=== PATIENT | male | born 1980 | race Caucasian/White ===

== ENCOUNTER 2017-06-08 12:10 | Inpatient (IN) ==
[2017-06-08] MEDS ORDERED: D5% in 0.45% NACL 1,000 ML IVC ONE (17:11)
[2017-06-08] MEDS: D5% in 0.9% NACL 1,000 ML IVC SCH (18:52)
[2017-06-08] MEDS ORDERED: Naloxone 0.4 MG/ML INJ IVP PRN (20:09)
[2017-06-08] MEDS ORDERED: Acetaminophen 325 MG TABLET PO PRN (20:09)
[2017-06-08] MEDS ORDERED: Methocarbamol 750 MG TABLET PO PRN (20:15)
[2017-06-08] MEDS ORDERED: SUBCUTANEOUS INSULIN PUMP MC PRN (20:15)
[2017-06-08] MEDS ORDERED: Ipratropium/Albuterol Neb 3 ML IH PRN (20:22)
--- NOTE | 2017-06-08 20:46 | Internal Med History&Physical ---
<Jose Wynne - Last Filed: 06/08/17 21:54> Date of Encounter: 06/08/17 Time of Encounter: 17:30 Assessment and Plan (1) Abdominal pain Current visit: Yes Status: Acute Patient presents with RUQ pain that he states has been occurring for the past two weeks and has become progressively worse over the past three days. Patient reports extreme pain with positional changes, coughing, sneezing, bending over, or laying flat. Patient also states that the pain has begun to radiate to the right flank area. XR of the abdomen/pelvis at [place] today shows no evidence of bowel obstruction but does show constipation. Patient's current symptoms are highly suggestive of cholecystitis and CT of the abdomen and pelvis with contrast ordered stat. Will consider placing a surgical consult based on the CT results. Patient to be placed as NPO with only medications due to N/V and possible surgery. Stair-step pain medications ordered to provide pain management. Qualifiers: Abdominal location: right upper quadrant Qualified Code(s): R10.11 - Right upper quadrant pain (2) Nausea & vomiting Current visit: Yes Status: Acute Patient presents with nausea and vomiting related to RUQ and abdominal pain over the past three days. Patient reports he becomes nauseous post-eating and vomits. Patient to be NPO with medications only due to N/V and possible surgical intervention for suspected cholecystitis. IV Zofran ordered PRN. IVP Protonix 40 mg daily ordered. Will monitor I&O and daily weight. Qualifiers: Vomiting type: cyclical vomiting Vomiting Intractability: non-intractable Qualified Code(s): G43.A0 - Cyclical vomiting, not intractable (3) Sleep apnea Current visit: Yes Status: Acute Patient reports acute sleep apnea that was recently diagnosed through a sleep study. Will order CPAP HS for patient as he reports home use nightly. Qualifiers: Sleep apnea type: obstructive Qualified Code(s): G47.33 - Obstructive sleep apnea (adult) (pediatric) (4) Unspecified open wound, right ankle, initial encounter Current visit: Yes Status: Acute Patient presents with wound of the right ankle that he is currently followed by Dr. Alexis duong. Patient is diabetic with insulin dependency via indwelling pump and also suffers from diabetic neuropathy. Wound is currently producing small amount of thick discharge. Wound care consult ordered. Qualifiers: Encounter type: initial encounter Qualified Code(s): S91.001A - Unspecified open wound, right ankle, initial encounter (5) Diabetes Current visit: Yes Status: Chronic Patient presents with history of chronic diabetes. Upon admission, patient's blood glucose was low due to nothing by mouth status. IV fluids with D5 administered to help normalize patient's blood glucose level while nothing by mouth. Blood glucose monitoring before meals and at bedtime ordered and patient will continue insulin via indwelling pump. A1c ordered. Qualifiers: Diabetes mellitus type: type 2 Diabetes mellitus complication status: with skin complications Diabetes mellitus complication detail: with foot ulcer Diabetes mellitus assisted insulin use: with assisted use Qualified Code(s) : E11.621 - Type 2 diabetes mellitus with foot ulcer; L97.509 - Non-pressure chronic ulcer of other part of unspecified foot with unspecified severity; Z79.4 - assisted (current) use of insulin (6) HTN (hypertension) Current visit: Yes Status: Chronic Patient presents with history of chronic hypertension. Will monitor patient vital signs and continue patient's lisinopril and Lopressor. Qualifiers: Hypertension type: essential hypertension Qualified Code(s): I10 - Essential (primary) hypertension (7) HLD (hyperlipidemia) Current visit: Yes Status: Chronic Patient presents with history of chronic hyperlipidemia. Lipid panel ordered. Will continue patient's atorvastatin. Qualifiers: Hyperlipidemia type: pure hypercholesterolemia Qualified Code(s): E78.00 - Pure hypercholesterolemia, unspecified; E78.0 - Pure hypercholesterolemia (8) DVT prophylaxis Current visit: Yes Status: Acute Patient to be placed on DVT prophylaxis due to admission protocol and current bed rest status. SCDs ordered for bilateral LEs due to possible need for surgery. Internal Medicine - H&P: HPI Chief complaint: RUQ/Abdominal pain Admitted From: Hospital to Hospital Transfer Plans for Post Hospital Care: Home History of present illness: Mr. Kilpatrick is a 36 year old male who presents from [facility] with chief complaint of abdominal pain for the past two weeks that the patient states has become more centralized in his RUQ and also radiates to his flank now. He reports that the pain becomes worse with positional changes, coughing, sneezing , bending over, or lying flat. He reports that he is coughing more and the sputum is brown/black. He reports he currently smokes 1-2 cigarettes a day. He reports nausea and vomiting, chills, and fever. He states the pain can become so intense that it takes his breath away. He denies recent illness, chest pain, dyspnea, lightheadedness or dizziness, headache, vision changes, pre-syncope, or syncope. Mr. Kilpatrick has a medical history that includes arthritis, asthma, diabetes with insulin dependency on an indwelling pump, HLD, HTN, and sleep apnea. He denies use of home O2 currently. 2-View CXR today at [place] shows no acute process. XR of the supine and upright abdomen today show no evidence of bowel obstruction but constipation. Patient's lipase is currently 96 on admission. Mr. Kilpatrick is at moderate risk for cholecystitis based on his current symptoms and will be placed as observation status with orders for stat CT of the abdomen/pelvis with contrast, NPO diet except for medications, blood glucose monitoring, IV fluids with D5 to help with patient's hypoglycemia that was present on admission due to his N/V, and supplemental O2 with continuous SpO2 monitoring. IV Zofran PRN and IVP Protonix 40 mg daily ordered. Will consider surgical consult based on CT results. Patient to be monitored closely for pain with stair-step medications ordered PRN for pain management. Time spent with patient > 40 minutes. Past Med Surg Social Fam HX - Past Medical History Source: patient Medical history: arthritis, asthma, diabetes, hyperlipidemia, hypertension Psychiatric history: anxiety, depression - Past Surgical History Surgical History: appendectomy, herniorrhaphy, orthopedic, other (Right carpal tunnel), other (Right foot) - Social History Smoking Status: Current every day smoker Packs per day: 1-2 cigarettes per day Smokeless Tobacco Status: Yes (1 can per day) Alcohol use: occasionally Drug use: none Occupational status: employed Current living situation: Home Activity Level: Independent ambulation Recent Out of Country Travel Within the Last 8 Weeks: No Exposure or Possible Exposure to Illness During Travel: No Internal Medicine - H&P: Meds Lisinopril [Zestril] 40 mg PO DAILY 08/04/16 [History] Metoprolol XL (24 HR) Succ [Toprol XL] 100 mg PO DAILY 11/25/16 [History] Albuterol Sulfate [Proair Hfa] 2 puff IH Q4H PRN 01/28/17 [History] Montelukast [Singulair] 10 mg PO DAILY 01/28/17 [History] Fluticasone/Vilanterol [Breo Ellipta 100-25 Mcg INH] 1 puff IH DAILY 04/28/17 [ History] Ibuprofen [Motrin] 800 mg PO Q8HR PRN 04/28/17 [History] Subcutaneous Insulin Pump [T:Slim] 3 units MC Q1H PRN 04/28/17 [History] Atorvastatin [Lipitor] 20 mg PO HS 05/28/17 [History] Furosemide [Lasix] 20 mg PO BID #14 tablet 05/28/17 [Rx] Methocarbamol [Robaxin-750] 750 mg PO Q8H PRN 06/08/17 [History] Potassium Citrate [Urocit-K] 10 meq PO DAILY 06/08/17 [History] Pregabalin [Lyrica] 200 mg PO BID 06/08/17 [History] Allergies Penicillins [PCN] Allergy (Verified 06/08/17 19:16) raises blood sugar patient states advised as child not to take due to diabetes All Systems PM: A 10-system review of systems was performed and is negative for pertinent findings except as documented above in the HPI. - Constitutional Constitutional: as per HPI, chills, fever(s), no night sweats - EENT Eyes: no change in vision, no discharge, no pain, no photophobia Ears: no ear discharge, no ear pain, no tinnitus Nose, mouth and throat: no dysphagia, no nasal discharge, no neck pain, no sore throat - Breasts Breasts: as per HPI - Cardiovascular Cardiovascular ROS IM: no chest pain, no diaphoresis, no dyspnea, no lightheadedness, no palpitations, no syncope - Respiratory Respiratory: as per HPI, cough, dyspnea - Gastrointestinal Gastrointestinal: as per HPI, abdominal pain, nausea, vomiting - Genitourinary Genitourinary ROS male: as per HPI - Musculoskeletal Musculoskeletal ROS IM: no numbness, no tingling - Integumentary Integumentary IM: no rash, no unusual bruising - Neurological Neurological ROS: no confusion, no convulsions, no focal weakness, no numbness, no tingling, no tremor(s) - Psychiatric Psychiatric: as per HPI - Endocrine Endocrine IM: as per HPI - Hematologic/Lymphatic Hematologic/Lymphatic: no easy bruising - Allergic/Immunologic Allergic/Immunologic: as per HPI - Constitutional Vitals: Temp Pulse Resp BP Pulse Ox 98.7 F 74 18 138/90 96 06/08/17 19:53 06/08/17 19:53 06/08/17 19:53 06/08/17 19:53 06/08/17 19:53 General appearance: Present: cooperative, mild distress, A&O X 3, pleasant, obese, answers questions appropriately - Head Head exam: Present: atraumatic, normocephalic - Eye Eye exam: Present: PERRL, conjuntiva pink, sclera anicteric Pupils: Present: PERRL - ENT ENT exam: Present: normal exam, normal external ear exam - Neck Neck exam general surgery: Present: supple, trachea midline. Absent: lymphadenopathy - Respiratory Respiratory exam: Present: CTAB. Absent: accessory muscle use, rales, rhonchi, wheezes - Cardiovascular Cardiovascular exam: Present: RRR, +S1, +S2. Absent: diastolic murmur, gallop, rubs, systolic murmur - GI/Abdominal GI/Abdominal exam: Present: diminished bowel sounds, distended, soft, tenderness - Rectal Rectal exam: Present: deferred - Additional comments: exam deferred. - Extremities Exam Extremities exam: Present: warm, radial pulses palpable and symetrical. Absent : calf tenderness, cyanotic, pedal edema - Back Exam Back exam: Present: normal inspection - Neurological Exam Neurological exam: Present: CN II-XII intact, oriented X3, no focal deficits. Absent: pronater drift, facial droop, speech deficit - Psychiatric Psychiatric exam: Present: normal affect, normal mood - Skin Skin exam: Present: dry, intact Internal Med - H&P Results - EKG Data EKG shows normal: sinus rhythm - EKG Data Prior EKG available for review: yes When compared to previous EKG: there is no significant change EKG comments: 06/08/17 21:03 EKG dated 04/27/17 shows sinus rhythm. EKG dated 06/08/17 shows sinus rhythm with poor R-wave progression. - Diagnostic Studies Chest x-ray Additional comments: 2-View CXR dated today in [place] shows no acute process. Abdominal x-ray Additional comments: Abdominal XR dated today in [place] shows no evidence of bowel obstruction, but constipation. <Jo Winslow - Last Filed: 06/09/17 00:13> Date of Encounter: 06/09/17 Internal Medicine - H&P: HPI History of present illness: Mr. Kilpatrick is a 36 year old male All Systems PM: A 10-system review of systems was performed and is negative for pertinent findings except as documented above in the HPI. - Constitutional Vitals: Temp Pulse Resp BP Pulse Ox 98.0 F 73 20 142/88 96 06/08/17 22:47 06/08/17 22:47 06/08/17 22:47 06/08/17 22:47 06/08/17 22:47 Internal Med - H&P Results - Labs Labs: Cardiac Enzymes 06/08/17 Range/Units 20:43 Troponin I 0.00 (0-0.03) ng/mL - Attending Attestation Patient seen and evaluated, agree with assessment and plan of Jose Wynne NP. Patient with RUQ pain and mild lipase elevation. Imaging unable to be performed at outside hospital, pending here. Symptoms most concerning for gallbladder disease, as pain worsens with eating. Will treat for pancreatitis with IV fluids and wait for results of CT abdomen/pelvis and RUQ US.
[2017-06-08] MEDS: *HR* Morphine 2 MG/ML SYRINGE IVP PRN (21:30)
[2017-06-08] MEDS: Pantoprazole 40 MG VIAL IVP SCH (21:33)
[2017-06-08] MEDS: Furosemide 20 MG TABLET PO SCH (21:36)
[2017-06-08] MEDS: Pregabalin 50 MG CAPSULE PO SCH (21:36)
[2017-06-09] MEDS: *HR* HYDROcodone/Acet 5/325 mg TABLET PO PRN ×3 (00:07→18:43)
[2017-06-09 02:37] LABS: Basophils # 0.1 K/mcL (0.0-0.2); Basophils % 0.9 %; Eosinophils # 0.3 K/mcL (0.0-0.6); Eosinophils % 4.8 %; Hematocrit 44.8 % (37.5-50.1); Hemoglobin 15.2 g/dL (12.9-16.9); Immature Granulocytes % 0.6 % (0-4); Lymphocytes # 1.6 K/mcL (0.6-4.6); Lymphocytes % 23.7 %; Mean Corpuscular HGB Conc 33.9 g/dL (31.6-35.5); Mean Corpuscular Volume 91.2 fL (83.0-100.0); Mean Platelet Volume 9.4 fL (9.4-12.4); Monocytes # 0.8 K/mcL (0.0-1.3); Monocytes % 10.8 %; Neutrophils # 4.1 K/mcL (1.6-8.9); Platelet Count 235 K/mcL (140-400); Red Blood Count 4.91 M/mcL (4.19-5.50); Red Cell Distribution Width 12.5 % (11.5-14.5); Segmented Neutrophils % 59.2 %
[2017-06-09 02:41] LABS: Prothrombin Time 10.8 Seconds (9.4-12.1)
[2017-06-09 02:44] LABS: Activated Partial Thrombo Time 32.1 Seconds (26.0-36.0)
[2017-06-09 02:50] LABS: BUN/Creatinine Ratio 14 (6-26); Blood Urea Nitrogen 18 mg/dL (8-26); Calcium 9.3 mg/dL (8.6-10.8); Carbon Dioxide 31 mEq/L (19-29); Chloride 100 mEq/L (98-109); Chol/HDL Ratio 4.3 (0-4.9); Cholesterol 128 mg/dL (< 200); Glucose 191 mg/dL (70-99); HDL Cholesterol 30 mg/dL (40-59); LDL Cholesterol,Calculated 53 mg/dL (0-99); Osmolality,Calculated 287 (280-300); Sodium 135 mEq/L (136-145); Triglycerides 223 mg/dL (< 150); eGFR For African Americans > 60 (> 60); eGFR For Non-African Americans > 60 (> 60)
[2017-06-09] MEDS: D5% in 0.9% NACL 1,000 ML IVC SCH (02:54)
[2017-06-09] MEDS: *HR* Morphine 2 MG/ML SYRINGE IVP PRN ×2 (02:58→22:07)
[2017-06-09] MEDS: 0.9 % Sodium Chloride 1,000 ML IVC SCH ×2 (03:37→11:58)
[2017-06-09] MEDS ORDERED: *HR* Dextrose 50 % in Water (Syg) 50 ML SYRINGE ONE (07:34)
[2017-06-09] MEDS ORDERED: Dextrose Gel 15 GM PO PRN ×2 (07:47)
[2017-06-09] MEDS ORDERED: D5% in Water 1,000 ML IVC PRN (07:47)
[2017-06-09] MEDS: *HR* Dextrose 50 % in Water (Syg) 50 ML SYRINGE IVP PRN ×3 (07:56→12:30)
[2017-06-09] MEDS: Furosemide 20 MG TABLET PO SCH ×2 (08:55→18:43)
[2017-06-09] MEDS: Pregabalin 50 MG CAPSULE PO SCH ×2 (08:55→22:05)
[2017-06-09] MEDS: Potassium Citrate 10 MEQ TABLET.ER PO SCH (08:56)
[2017-06-09] MEDS: Lisinopril 20 MG TABLET PO SCH (08:56)
[2017-06-09] MEDS: Metoprolol XL (24 HR) Succ 50 MG TAB.ER.24H PO SCH (08:56)
[2017-06-09] MEDS: Pantoprazole 40 MG VIAL IVP SCH (08:56)
--- NOTE | 2017-06-09 13:44 | Internal Med Progress Note ---
Date of Encounter: 06/09/17 Time of Encounter: 12:30 - Assessment and plan (1) RUQ abdominal pain Current Visit: Yes Status: Acute Assessment and plan: Patient with right upper quadrant abdominal pain that started 3 days prior to presentation. Exquisitely tender to palpation. Worsened with movement, deep breaths, coughing. Patient also stating that he developed a cough at the same time as his right upper quadrant abdominal pain. Will obtain chest CT. Abdominal CT unremarkable for acute processes as well as plain films of his abdomen revealing constipation. Chest x-ray negative. Will obtain gallbladder DOWN and repeat LFTs, lipase, amylase, bilirubin levels. Lipase mildly elevated yesterday, will trend. We will keep nothing by mouth, suspicion is for acute cholecystitis but workup is ongoing. Urinalysis negative. Continue with pain control. Gallbladder ultrasound and chest CT as well as abdominal labs pending ITS Impressions Abdomen/Pelvis CT 06/08/17 23:30 IMPRESSION: No acute findings. In particular there is no scan evidence for acute cholecystitis. D/ / Justin Avalos MD / Justin Avalos MD Interpreting Provider: Jsutin Avalos MD Chest x-ray from [place] 06/08/17-1054 impression: No acute process. Supine and upright views of the abdomen from [place] 06/08/17-1055 impression : No evidence of bowel obstruction. Constipation. (2) Foot ulcer Current Visit: Yes Status: Chronic Assessment and plan: Small, round, open area approximately 2 mm wide and approximately 2 mm deep area no active drainage on my assessment. Does not appear acutely infected. Wound is on board. Follows with Dr. munoz outpatient. No signs of cellulitis or acute processes, no indication for inpatient consultation at this time. (3) DVT prophylaxis Current Visit: Yes Status: Acute Assessment and plan: Observation patient. Up ad sejal. (4) Nausea & vomiting Current Visit: Yes Status: Acute Assessment and plan: Symptoms currently controlled, remains nothing by mouth for ongoing workup Qualifiers: Vomiting type: cyclical vomiting Vomiting Intractability: non-intractable Qualified Code(s): G43.A0 - Cyclical vomiting, not intractable (5) Sleep apnea Current Visit: Yes Status: Chronic Assessment and plan: Endorses compliance, continue CPAP at bedtime Qualifiers: Sleep apnea type: obstructive Qualified Code(s): G47.33 - Obstructive sleep apnea (adult) (pediatric) (6) Diabetes Current Visit: Yes Status: Chronic Assessment and plan: Relatively well controlled with an A1c of 8.0%. Patient with insulin pump. Patient did have mild hypoglycemic episode this morning. Nothing by mouth, insulin rates decreased. 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 We will continue to trend and adjust medications as indicated. Qualifiers: Hypertension type: essential hypertension Qualified Code(s): I10 - Essential (primary) hypertension (8) HLD (hyperlipidemia) Current Visit: Yes Status: Chronic Assessment and plan: Lipid panel mildly abnormal triglyceride 223, LDL normal, total cholesterol normal - Subjective Interval history: Patient seen and examined. On examination, patient sitting upright in his chair listening to music. He states that he just got a pain shot and states that his pain is currently tolerable but states he is still having RUQ pain and states even slight movement causes him great distress. He states his last BM was a few days ago. He is flatulent. - Constitutional Vitals: Temp Pulse Resp BP Pulse Ox 97.5 F L 73 15 129/79 94 06/09/17 11:44 06/09/17 11:44 06/09/17 11:44 06/09/17 11:44 06/09/17 11:44 General appearance: Present: cooperative, mild distress (2/2 pain), A&O X 3, pleasant, obese, answers questions appropriately - Head Head exam: Present: atraumatic, normocephalic - Eye Eye exam: Present: PERRL, conjuntiva pink, sclera anicteric Pupils: Present: PERRL - Neck Neck exam general surgery: Present: supple, trachea midline. Absent: lymphadenopathy - Respiratory Respiratory exam: Present: wheezes (right posterior). Absent: accessory muscle use, rales, respiratory distress, rhonchi - Cardiovascular Cardiovascular exam: Present: RRR, +S1, +S2. Absent: diastolic murmur, gallop, rubs, systolic murmur - GI/Abdominal GI/Abdominal exam: Present: distended, normal bowel sounds, soft, tenderness ( RUQ), no peritoneal signs - Extremities Exam Extremities exam: Present: warm, radial pulses palpable and symetrical. Absent : calf tenderness, cyanotic, pedal edema - Neurological Exam Neurological exam: Present: alert, CN II-XII intact, oriented X3, no focal deficits, strengths equal and symetr throughout. Absent: pronater drift, facial droop, speech deficit - Skin Skin exam: Present: dry, intact, pallor, warm Internal Medicine: Result - Labs CBC & Chem 7: 06/09/17 02:26 06/09/17 02:26 Labs: Short CBC 06/09/17 Range/Units 02:26 WBC 6.9 (4.3-11.1) K/mcL Hgb 15.2 D (12.9-16.9) g/dL Hct 44.8 (37.5-50.1) % Plt Count 235 (140-400) K/mcL Neutrophils # 4.1 (1.6-8.9) K/mcL BMP 06/09/17 02:26 Sodium 135 L Potassium 4.0 Chloride 100 Carbon Dioxide 31 H BUN 18 Creatinine 1.31 H Glucose 191 H Calcium 9.3 Cardiac Enzymes 06/08/17 06/09/17 Range/Units 20:43 02:26 Troponin I 0.00 0.00 (0-0.03) ng/mL - ABG Interpretation ABG results: PT/INR, D-dimer PT 10.8 Seconds (9.4-12.1) 06/09/17 02:26 - Impressions Impressions Abdomen/Pelvis CT 06/08/17 23:30 IMPRESSION: No acute findings. In particular there is no scan evidence for acute cholecystitis. D/ / Justin Avalos MD / Justin Avalos MD Interpreting Provider: Justin Avalos MD Consult Discharge Plan - Plan Referrals: Leslie Malhotra, INVESTOR RELATIONS MANAGER [Primary Care Provider] -
[2017-06-09 14:14] LABS: Albumin 3.1 g/dL (3.5-5.0); Albumin/Globulin Ratio 0.9 (1.1-2.2); Bilirubin,Direct 0.2 mg/dL (0.0-0.5); Bilirubin,Indirect 0.5 mg/dL (0.0-1.2); Bilirubin,Total 0.7 mg/dL (0.2-1.2); Globulin 3.4 g/dL (2.4-3.5); Total Protein 6.5 g/dL (6.0-8.3)
[2017-06-10] MEDS: 0.9 % Sodium Chloride 1,000 ML IVC SCH ×3 (00:22→21:27)
[2017-06-10] MEDS: *HR* HYDROcodone/Acet 5/325 mg TABLET PO PRN ×4 (03:54→21:55)
[2017-06-10 05:31] LABS: Basophils # 0.1 K/mcL (0.0-0.2); Basophils % 1.1 %; Eosinophils # 0.3 K/mcL (0.0-0.6); Eosinophils % 4.5 %; Hematocrit 47.1 % (37.5-50.1); Hemoglobin 16.1 g/dL (12.9-16.9); Lymphocytes # 1.4 K/mcL (0.6-4.6); Lymphocytes % 22.6 %; Mean Corpuscular HGB Conc 34.2 g/dL (31.6-35.5); Mean Corpuscular Hemoglobin 31.1 pg (28.0-33.3); Mean Corpuscular Volume 90.9 fL (83.0-100.0); Monocytes # 0.8 K/mcL (0.0-1.3); Monocytes % 12.1 %; Neutrophils # 3.7 K/mcL (1.6-8.9); Platelet Count 247 K/mcL (140-400); Red Blood Count 5.18 M/mcL (4.19-5.50); Red Cell Distribution Width 12.5 % (11.5-14.5); Segmented Neutrophils % 58.7 %
[2017-06-10 07:31] LABS: BUN/Creatinine Ratio 13 (6-26); Blood Urea Nitrogen 16 mg/dL (8-26); Calcium 9.2 mg/dL (8.6-10.8); Carbon Dioxide 24 mEq/L (19-29); Chloride 101 mEq/L (98-109); Glucose 267 mg/dL (70-99); Osmolality,Calculated 289 (280-300); Potassium 4.3 mEq/L (3.5-4.5); Sodium 134 mEq/L (136-145); eGFR For African Americans > 60 (> 60); eGFR For Non-African Americans > 60 (> 60)
[2017-06-10] MEDS: Pregabalin 50 MG CAPSULE PO SCH ×2 (08:32→20:22)
[2017-06-10] MEDS: Pantoprazole 40 MG VIAL IVP SCH (08:32)
[2017-06-10] MEDS: Lisinopril 20 MG TABLET PO SCH (08:32)
[2017-06-10] MEDS: Furosemide 20 MG TABLET PO SCH ×2 (08:33→16:10)
[2017-06-10] MEDS: Metoprolol XL (24 HR) Succ 50 MG TAB.ER.24H PO SCH (08:33)
[2017-06-10] MEDS: Potassium Citrate 10 MEQ TABLET.ER PO SCH (08:33)
--- NOTE | 2017-06-10 10:19 | Internal Med Progress Note ---
Date of Encounter: 06/10/17 Time of Encounter: 09:00 - Assessment and plan (1) RUQ abdominal pain Current Visit: Yes Status: Acute Assessment and plan: Unclear causation at this time. Patient with right upper quadrant abdominal pain that started 3 days prior to presentation. Exquisitely tender to palpation. Worsened with movement, deep breaths, coughing. Patient also stating that he developed a cough at the same time as his right upper quadrant abdominal pain so a chest CT was obtained and was unremarkable. Abdominal CT unremarkable for acute processes as well as plain films of his abdomen revealing constipation. RUQ ultrasound also unremakrable. Chest x-ray negative. Repeat LFTs, lipase, amylase, bilirubin levels all normal. Lipase mildly elevated yesterday, now normal. Okayed to start eating last night however changed back to NPO today secondary to continued RUQ pain. Urinalysis negative. Continue with pain control. Gallbladder ultrasound, chest CT, as well as abdominal labs all normal. Suspect biliary colic vs schincter of oddi dysfunction. Will bring GI onboard and appreciate their recommendations. Acute cholecystitis, acute cholangitis, acute hepatitis less likely given normal labs. Could also be musculoskeletal etiology given the exquisite tenderness with light palpation. Will trial lidocaine patch and continue to monitor. Awaiting GI recommendations. ITS Impressions Abdomen/Pelvis CT 06/08/17 23:30 IMPRESSION: No acute findings. In particular there is no scan evidence for acute cholecystitis. D/ / Justin Avalos MD / Justin Avalos MD Interpreting Provider: Justin Avalos MD Chest x-ray from [facility] 06/08/17-1051 impression: No acute process. Supine and upright views of the abdomen from [facility] 06/08/17-1055 impression : No evidence of bowel obstruction. Constipation. Chest CT 06/09/17 13:53 IMPRESSION: No findings to account for chest pain. There is scarring versus atelectasis in the right middle lobe and lingula. There is a calcified granuloma on the right D/ / Lucio Negrete MD / Lucio Negrete MD Interpreting Provider: Lucio Negrete MD Abdomen Ultrasound 06/09/17 14:00 IMPRESSION: Unremarkable right upper quadrant ultrasound. D/ / Shwetha Willis MD / Shwetha Willis MD Interpreting Provider: Shwetha Willis MD (2) Foot ulcer Current Visit: Yes Status: Chronic Assessment and plan: Small, round, open area approximately 2 mm wide and approximately 2 mm deep area no active drainage on my assessment. Does not appear acutely infected. Wound is on board. Follows with Dr. munoz outpatient. No signs of cellulitis or acute processes, no indication for inpatient consultation at this time. Qualifiers: Laterality: right Non-pressure ulcer stage: unspecified non-pressure ulcer stage Qualified Code(s): L97.519 - Non-pressure chronic ulcer of other part of right foot with unspecified severity (3) DVT prophylaxis Current Visit: Yes Status: Acute Assessment and plan: Observation patient. Up ad sejal. (4) Nausea & vomiting Current Visit: Yes Status: Acute Assessment and plan: Symptoms currently controlled, workup negative thus far- patient tolerating PO but continues to have severe bouts of RUQ pain. GI brought onboard. Qualifiers: Vomiting type: cyclical vomiting Vomiting Intractability: non-intractable Qualified Code(s): G43.A0 - Cyclical vomiting, not intractable (5) Sleep apnea Current Visit: Yes Status: Chronic Assessment and plan: Endorses compliance, continue CPAP at bedtime Qualifiers: Sleep apnea type: obstructive Qualified Code(s): G47.33 - Obstructive sleep apnea (adult) (pediatric) (6) Diabetes Current Visit: Yes Status: Chronic Assessment and plan: Relatively well controlled with an A1c of 8.0%. Patient with insulin pump. Patient did have mild hypoglycemic episode yesterday- stable since that time. 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 We will continue to trend and adjust medications as indicated. Qualifiers: Hypertension type: essential hypertension Qualified Code(s): I10 - Essential (primary) hypertension (8) HLD (hyperlipidemia) Current Visit: Yes Status: Chronic Assessment and plan: Lipid panel mildly abnormal triglyceride 223, LDL normal, total cholesterol normal Qualifiers: Hyperlipidemia type: other hyperlipidemia Qualified Code(s): E78.4 - Other hyperlipidemia (9) Fluid overload Current Visit: Yes Status: Acute Assessment and plan: mild fluid overload noted. IVF stopped. No recent Echo- will obtain one. On furosemide at home. Currently with 2+ pitting edema bilaterally. Patient stating 1+ pitting edema is his baseline. He denies shortness of breath above his norm. Tolerating room air. No crackles present on examination. Will monitor. Qualifiers: Hypervolemia type: unspecified Qualified Code(s): E87.70 - Fluid overload, unspecified - Subjective Interval history: Patient seen and examined. On examination, patient sitting upright in his chair watching television. He states that he had a rough night and states that he had a bout of severe pain that "made me cry" last night. He states that he tried not to take pain medication. He states that he then had another episode this am and took pain medication. He is concerned and "just do anything to make it go away." He states he is eating okay. - Constitutional Vitals: Temp Pulse Resp BP Pulse Ox 97.7 F 97 18 142/82 98 06/10/17 07:18 06/10/17 07:18 06/10/17 07:18 06/10/17 07:18 06/10/17 07:18 General appearance: Present: cooperative, mild distress (2/2 pain), A&O X 3, pleasant, obese, answers questions appropriately - Head Head exam: Present: atraumatic, normocephalic - Eye Eye exam: Present: PERRL, conjuntiva pink, sclera anicteric Pupils: Present: PERRL - Neck Neck exam general surgery: Present: supple, trachea midline. Absent: lymphadenopathy - Respiratory Respiratory exam: Present: decreased breath sounds. Absent: accessory muscle use, rales, respiratory distress, rhonchi, wheezes - Cardiovascular Cardiovascular exam: Present: RRR, +S1, +S2. Absent: diastolic murmur, gallop, rubs, systolic murmur - GI/Abdominal GI/Abdominal exam: Present: distended, normal bowel sounds, soft, tenderness ( RUQ), no peritoneal signs - Extremities Exam Extremities exam: Present: pedal edema (2+ pitting bilaterally- 1+ is his baseline), warm, radial pulses palpable and symetrical. Absent: calf tenderness , cyanotic - Neurological Exam Neurological exam: Present: alert, CN II-XII intact, normal gait, oriented X3, no focal deficits, strengths equal and symetr throughout. Absent: pronater drift, facial droop, speech deficit - Skin Skin exam: Present: dry, intact, normal color, warm Internal Medicine: Result - Labs CBC & Chem 7: 06/10/17 04:48 06/10/17 06:17 Labs: Short CBC 06/10/17 Range/Units 04:48 WBC 6.3 (4.3-11.1) K/mcL Hgb 16.1 (12.9-16.9) g/dL Hct 47.1 (37.5-50.1) % Plt Count 247 (140-400) K/mcL Neutrophils # 3.7 (1.6-8.9) K/mcL BMP 06/10/17 06:17 Sodium 134 L Potassium 4.3 Chloride 101 Carbon Dioxide 24 BUN 16 Creatinine 1.21 Glucose 267 H Calcium 9.2 Liver Function 06/09/17 Range/Units 13:51 Total Bilirubin 0.7 (0.2-1.2) mg/dL Direct Bilirubin 0.2 (0.0-0.5) mg/dL AST 27 (5-34) Units/L ALT 37 (0-55) Units/L Alkaline Phosphatase 88 (38-126) Units/L Albumin 3.1 L (3.5-5.0) g/dL - ABG Interpretation ABG results: PT/INR, D-dimer PT 10.8 Seconds (9.4-12.1) 06/09/17 02:26 - Impressions Impressions Abdomen/Pelvis CT 06/08/17 23:30 IMPRESSION: No acute findings. In particular there is no scan evidence for acute cholecystitis. D/ / Justin Avalos MD / Justin Avalos MD Interpreting Provider: Justin Avalos MD Chest CT 06/09/17 13:53 IMPRESSION: No findings to account for chest pain. There is scarring versus atelectasis in the right middle lobe and lingula. There is a calcified granuloma on the right D/ / Lucio Negrete MD / Lucio Negrete MD Interpreting Provider: Lucio Negrete MD Abdomen Ultrasound 06/09/17 14:00 IMPRESSION: Unremarkable right upper quadrant ultrasound. D/ / Shwetha Willis MD / Shwetha Willis MD Interpreting Provider: Shwetha Willis MD Consult Discharge Plan - Plan Referrals: Leslie Malhotra, DIRECT MARKETING SPECIALIST [Primary Care Provider] -
[2017-06-10] MEDS: *HR* Morphine 2 MG/ML SYRINGE IVP PRN ×2 (10:49→18:51)
[2017-06-10] MEDS: (Fluticasone/Vilanterol [Breo Ellipta 100-25 Mcg Inh] IH SCH (11:04)
--- NOTE | 2017-06-10 11:33 | Gastroenterology Consult Note ---
<Carline Smith - Last Filed: 06/10/17 11:39> Date of Encounter: 06/10/17 Time of Encounter: 11:10 - Assessment and plan (1) History of melena Current Visit: Yes Status: Resolved (2) Dyspepsia Current Visit: Yes Status: Acute Assessment and plan: daily PPI (3) Nausea & vomiting Current Visit: Yes Status: Acute Assessment and plan: anti-emetics Qualifiers: Vomiting type: cyclical vomiting Vomiting Intractability: non-intractable Qualified Code(s): G43.A0 - Cyclical vomiting, not intractable (4) RUQ abdominal pain Current Visit: Yes Status: Acute Assessment and plan: Plan for EGD evaluation tomorrow. No findings on imaging to date - HIDA scan today. If HIDA unremarkable, proceed with EGD. - Time Spent With Patient Total time spent is greater than 50% in coordination of care (as documented) at patient's floor/unit and/or counseling patient: less than 15 minutes GI History of Present Illness - Data of Consult Patient: new to practice Consult date: 06/10/17 Requesting Physician: Radha Nuno - Consult Narrative Reason for consult: RUQ abdominal pain History of present illness: Mr. Kilpatrick is a 36 year old male with a PMH of arthritis, asthma, DM with insulin pump, HLD, HTN and sleep apnea on CPAP, who presented from [facility] with chief complaint of abdominal pain for the past two weeks that the patient states has become more centralized in his RUQ and also radiates to his flank now. He reports that the pain becomes worse with positional changes, coughing, sneezing, bending over, or lying flat. He reports that he is coughing more and the sputum is brown/black. He reports he currently smokes 1-2 cigarettes a day. He reports nausea and vomiting, chills, and fever. He states the pain can become so intense that it takes his breath away. He denies recent illness, chest pain, dyspnea, lightheadedness or dizziness, headache, vision changes, pre-syncope, or syncope. 2-View CXR today at [place] shows no acute process. XR of the supine and upright abdomen today show no evidence of bowel obstruction but constipation. Patient's lipase is currently 96 on admission. Pt states increase in symptoms that include acid reflux over the past 2 weeks. States he has loose bowels frequently, has seen melena previously , the most recent sighting about 3 weeks ago. Denies dysphagia, some nausea/ vomiting, no blood in stools. Stools have been greenish in color. Colonoscopy: None EGD: None Past Med Surg Social Fam HX - Past Medical History Medical history: arthritis, asthma, diabetes, hyperlipidemia, hypertension Psychiatric history: anxiety, depression - Past Surgical History Surgical History: appendectomy, herniorrhaphy, orthopedic, other (Right carpal tunnel), other (Right foot) - Social History Smoking Status: Current every day smoker Packs per day: 1-2 cigarettes per day Smokeless Tobacco Status: Yes (1 can per day) Alcohol use: occasionally Drug use: none - Gastrointestinal NSAID use: None noted Anticoagulation Use: None noted Number of BM Per Day: 3-4 Gastrointestinal: Present: abdominal pain, dyspepsia, melena, nausea, vomiting - Constitutional Constitutional: as per HPI - EENT Eyes: as per HPI Ears: Present: as per HPI Nose, mouth and throat: Present: as per HPI - Cardiovascular Cardiovascular ROS: Present: as per HPI - Respiratory Respiratory IM: Present: as per HPI - Neurological ROS Neurological GI: Present: as per HPI - Hematologic/Lymphatic Hematologic/Lymphatic pediatric: Present: as per HPI - Musculoskeletal Musculoskeletal ROS GI: Present: as per HPI - Integumentary Integumentary GI: Present: as per HPI - Psychiatric ROS Psychiatric GI: Present: as per HPI - Endocrine Endocrine IM: Present: as per HPI - Constitutional Vitals: Temp Pulse Resp BP Pulse Ox 97.7 F 97 18 142/82 98 06/10/17 07:18 06/10/17 07:18 06/10/17 07:18 06/10/17 07:18 06/10/17 07:18 General appearance: Present: cooperative, A&O X 3, no acute distress, answers questions appropriately - Head Head exam: Present: atraumatic, normocephalic - Eye Eye exam: Present: normal appearance, sclera anicteric - ENT ENT exam: Present: mucous membranes moist - Neck Neck exam general surgery: Present: normal inspection, trachea midline - Respiratory Respiratory exam: Present: CTAB - Cardiovascular Cardiovascular exam: Present: RRR, +S1, +S2 - GI/Abdominal GI/Abdominal exam: Present: normal bowel sounds, soft, no peritoneal signs - Rectal Rectal exam: Present: deferred - Extremities Exam Extremities exam: Present: warm - Neurological Exam Neurological exam: Present: no focal deficits - Psychiatric Psychiatric exam: Present: normal affect, normal mood - Skin Skin exam: Present: dry, intact, normal color, warm Results - Labs CBC & Chem 7: 06/10/17 04:48 06/10/17 06:17 Labs: Last Result Calcium 9.2 mg/dL (8.6-10.8) 06/10/17 06:17 Troponin I 0.00 ng/mL (0-0.03) 06/09/17 02:26 Triglycerides 223 mg/dL (< 150) H 06/09/17 02:26 Entire Visit Hgb 16.1 g/dL (12.9-16.9) 06/10/17 04:48 Hct 47.1 % (37.5-50.1) 06/10/17 04:48 PT 10.8 Seconds (9.4-12.1) 06/09/17 02:26 Total Bilirubin 0.7 mg/dL (0.2-1.2) 06/09/17 13:51 AST 27 Units/L (5-34) 06/09/17 13:51 ALT 37 Units/L (0-55) 06/09/17 13:51 Amylase 47 Units/L (25-125) 06/09/17 13:51 Lipase 26 Units/L (8-78) 06/09/17 13:51 - ABG ABG results: PT/INR, D-dimer PT 10.8 Seconds (9.4-12.1) 06/09/17 02:26 - Impressions Impressions Abdomen/Pelvis CT 06/08/17 23:30 IMPRESSION: No acute findings. In particular there is no scan evidence for acute cholecystitis. D/ / Justin Avalos MD / Justin Avalos MD Interpreting Provider: Justin Avalos MD Chest CT 06/09/17 13:53 IMPRESSION: No findings to account for chest pain. There is scarring versus atelectasis in the right middle lobe and lingula. There is a calcified granuloma on the right D/ / Lucio Negrete MD / Lucio Negrete MD Interpreting Provider: Lcuio Negrete MD Abdomen Ultrasound 06/09/17 14:00 IMPRESSION: Unremarkable right upper quadrant ultrasound. D/ / Shwetha Willis MD / Shwetha Willis MD Interpreting Provider: Shwetha Willis MD Consult Discharge Plan - Plan Referrals: Leslie Malhotra, DATA ANALYTICS DEVELOPER [Primary Care Provider] - <Kartik Louise - Last Filed: 06/10/17 19:17> Date of Encounter: 06/10/17 Time of Encounter: 18:00 - Time Spent With Patient Total time spent is greater than 50% in coordination of care (as documented) at patient's floor/unit and/or counseling patient: GI History of Present Illness - Data of Consult Requesting Physician: Radha Nuno - Consult Narrative History of present illness: Mr. Kilpatrick is a 36 year old male - Constitutional Vitals: Temp Pulse Resp BP Pulse Ox 98.6 F 70 16 115/78 94 06/10/17 15:25 06/10/17 15:25 06/10/17 15:25 06/10/17 15:25 06/10/17 15:25 Results - Labs CBC & Chem 7: 06/10/17 04:48 06/10/17 06:17 Labs: Last Result Calcium 9.2 mg/dL (8.6-10.8) 06/10/17 06:17 Troponin I 0.00 ng/mL (0-0.03) 06/09/17 02:26 Triglycerides 223 mg/dL (< 150) H 06/09/17 02:26 Entire Visit Hgb 16.1 g/dL (12.9-16.9) 06/10/17 04:48 Hct 47.1 % (37.5-50.1) 06/10/17 04:48 PT 10.8 Seconds (9.4-12.1) 06/09/17 02:26 Total Bilirubin 0.7 mg/dL (0.2-1.2) 06/09/17 13:51 AST 27 Units/L (5-34) 06/09/17 13:51 ALT 37 Units/L (0-55) 06/09/17 13:51 Amylase 47 Units/L (25-125) 06/09/17 13:51 Lipase 26 Units/L (8-78) 06/09/17 13:51 - ABG ABG results: PT/INR, D-dimer PT 10.8 Seconds (9.4-12.1) 06/09/17 02:26 - Impressions Impressions Abdomen/Pelvis CT 06/08/17 23:30 IMPRESSION: No acute findings. In particular there is no scan evidence for acute cholecystitis. D/ / Justin Avalos MD / Justin Avalos MD Interpreting Provider: Justin Avalos MD - Attending Attestation I examined this patient and my medical decision-making was reviewed with the Resident Physician. I agree with the documented findings, disposition and treatment plan as described except to the extent set forth below.
[2017-06-11] MEDS: *HR* Morphine 2 MG/ML SYRINGE IVP PRN ×4 (00:39→19:46)
[2017-06-11] MEDS: *HR* Dextrose 50 % in Water (Syg) 50 ML SYRINGE IVP PRN (03:44)
[2017-06-11] MEDS: (Fluticasone/Vilanterol [Breo Ellipta 100-25 Mcg Inh] IH SCH (09:03)
[2017-06-11] MEDS: Potassium Citrate 10 MEQ TABLET.ER PO SCH (09:03)
[2017-06-11] MEDS: Pregabalin 50 MG CAPSULE PO SCH ×2 (09:03→20:51)
[2017-06-11] MEDS: Furosemide 20 MG TABLET PO SCH ×2 (09:03→17:23)
[2017-06-11] MEDS: Metoprolol XL (24 HR) Succ 50 MG TAB.ER.24H PO SCH (09:03)
[2017-06-11] MEDS: Lisinopril 20 MG TABLET PO SCH (09:03)
[2017-06-11] MEDS: Pantoprazole 40 MG VIAL IVP SCH (09:09)
[2017-06-11] MEDS: D5% in 0.45% NACL 1,000 ML IVC SCH (09:09)
[2017-06-11 09:11] LABS: Basophils # 0.1 K/mcL (0.0-0.2); Basophils % 0.8 %; Eosinophils # 0.3 K/mcL (0.0-0.6); Eosinophils % 4.5 %; Hematocrit 49.8 % (37.5-50.1); Hemoglobin 17.2 g/dL (12.9-16.9); Immature Granulocytes % 0.5 % (0-4); Lymphocytes # 1.4 K/mcL (0.6-4.6); Lymphocytes % 22.2 %; Mean Corpuscular HGB Conc 34.5 g/dL (31.6-35.5); Mean Corpuscular Hemoglobin 31.9 pg (28.0-33.3); Mean Corpuscular Volume 92.2 fL (83.0-100.0); Mean Platelet Volume 9.3 fL (9.4-12.4); Monocytes # 0.7 K/mcL (0.0-1.3); Monocytes % 10.3 %; Platelet Count 264 K/mcL (140-400); Red Cell Distribution Width 12.5 % (11.5-14.5); Segmented Neutrophils % 61.7 %
[2017-06-11 09:16] LABS: BUN/Creatinine Ratio 12 (6-26); Blood Urea Nitrogen 18 mg/dL (8-26); Carbon Dioxide 30 mEq/L (19-29); Chloride 97 mEq/L (98-109); Glucose 78 mg/dL (70-99); Osmolality,Calculated 287 (280-300); Potassium 4.2 mEq/L (3.5-4.5); Sodium 138 mEq/L (136-145); eGFR For African Americans > 60 (> 60); eGFR For Non-African Americans 51 (> 60)
--- NOTE | 2017-06-11 12:02 | Anesthesia Evaluation PreOp ---
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 Chronic Pain/Neuropathy maintaied on Gabapentin, Lyrica) Other Medical History: Diabetes Type I (maintained on Insulin PUmp) Anesthesia History: No Prior Anesthetic Complications, Past Anesthesia (Appy, Herniarrhaphy, R-CTR, R-foot surgery) Alcohol Use: occasionally Drug use: none Medications and Allergies Lisinopril [Zestril] 40 mg PO DAILY 08/04/16 [History] Metoprolol XL (24 HR) Succ [Toprol XL] 100 mg PO DAILY 11/25/16 [History] Albuterol Sulfate [Proair Hfa] 2 puff IH Q4H PRN 01/28/17 [History] Montelukast [Singulair] 10 mg PO DAILY 01/28/17 [History] Fluticasone/Vilanterol [Breo Ellipta 100-25 Mcg INH] 1 puff IH DAILY 04/28/17 [ History] Ibuprofen [Motrin] 800 mg PO Q8HR PRN 04/28/17 [History] Subcutaneous Insulin Pump [T:Slim] 3 units MC Q1H PRN 04/28/17 [History] Atorvastatin [Lipitor] 20 mg PO HS 05/28/17 [History] Furosemide [Lasix] 20 mg PO BID #14 tablet 05/28/17 [Rx] Methocarbamol [Robaxin-750] 750 mg PO Q8H PRN 06/08/17 [History] Potassium Citrate [Urocit-K] 10 meq PO DAILY 06/08/17 [History] Pregabalin [Lyrica] 200 mg PO BID 06/08/17 [History] Allergies Penicillins [PCN] Allergy (Verified 06/08/17 19:16) raises blood sugar patient states advised as child not to take due to diabetes - Meds/Allergy Pre-op Review Medications Reviewed: Yes Allergies Reviewed: Yes Beta Blockers on Current Med List: Yes (Metoprolol) If Beta Blockers taken, Date/Time (Last Dose taken): Held on 06/11/17 for ?? Anesthesia Results - Labs 06/11/17 08:53 06/11/17 08:53 Anesthesia Exam Vital Signs/O2 Sat/Glucose, Most Current Temp Pulse Resp BP Pulse Ox 06/11/17 11:52 98.5 F 86 18 143/89 93 06/11/17 08:39 97.9 F 69 128/85 96 Height: 5'6" Weight: 229# bmi = 37 NPO (# of Hours): mnoC - HEENT Pupil (Motor): Pupils equal, EOMI Mallampati: III Teeth: Poor dentition Oral Opening: Greater than 3 - PRODUCTION PLANNING SUPERVISOR LOC: Confused PRODUCTION PLANNING SUPERVISOR Motor: Normal RUE, Normal LUE, Normal RLE, Normal LLE, Normal Face PRODUCTION PLANNING SUPERVISOR Sensory: Normal: RUE, LUE, RLE, LLE, Face - Cardiac Rhythm: Regular Murmur: None - Pulmonary Breath Sounds: bilateral Clear Respiratory Effort: Symmetrical Anesthesia Assess/Plan ASA Score: 3 (Obesity, IDDM, HTN, Asthma, HTN, Chol, Anxiety/Depression) Modified Edwards Scale for Level of Consciousness: Cooperative, oriented, and tranquil Anesthetic Plan: MAC Monitoring Plan: Standard Monitors Recovery Plan: Other Anes Supervising Prov Stmt: Pt seen/evaluated, R&B Discussed, questions answered and consent obtained. Garrett Montaño MD
--- NOTE | 2017-06-11 16:53 | Internal Med Progress Note ---
Date of Encounter: 06/11/17 Time of Encounter: 14:00 - Assessment and plan (1) RUQ abdominal pain Current Visit: Yes Status: Acute Assessment and plan: Unclear causation at this time. Patient with right upper quadrant abdominal pain that started 3 days prior to presentation. Exquisitely tender to palpation. Worsened with movement, deep breaths, coughing. Patient also stating that he developed a cough at the same time as his right upper quadrant abdominal pain so a chest CT was obtained and was unremarkable. Abdominal CT unremarkable for acute processes as well as plain films of his abdomen revealing constipation. RUQ ultrasound also unremarkable. Chest x-ray negative. Repeat LFTs, lipase, amylase, bilirubin levels all normal. Lipase mildly elevated initially, now normal. Okayed to start eating 2 nights ago however changed back to NPO today secondary to continued RUQ pain. Urinalysis negative. Gallbladder ultrasound, chest CT, as well as abdominal labs all normal. Suspect biliary colic vs schincter of oddi dysfunction. GI brought onboard who performed both a HIDA scan and both an EGD that were unremarkable other than mild duodenitis on the EGD. Acute cholecystitis, acute cholangitis, acute hepatitis less likely given normal labs. Could also be musculoskeletal etiology given the exquisite tenderness with light palpation. Lidocaine patch tried without success. We will observe him overnight and if he continues to have right upper quadrant abdominal pain by tomorrow, will consult surgery for possible cholecystectomy at their discretion. ITS Impressions Abdomen/Pelvis CT 06/08/17 23:30 IMPRESSION: No acute findings. In particular there is no scan evidence for acute cholecystitis. D/ / Justin Avalos MD / Justin Avalos MD Interpreting Provider: Justin Avalos MD Chest x-ray from [place] 06/08/17-1054 impression: No acute process. Supine and upright views of the abdomen from [place] 06/08/17-1055 impression : No evidence of bowel obstruction. Constipation. Chest CT 06/09/17 13:53 IMPRESSION: No findings to account for chest pain. There is scarring versus atelectasis in the right middle lobe and lingula. There is a calcified granuloma on the right D/ / Lucio Negrete MD / Lucio Negrete MD Interpreting Provider: Lucio Negrete MD Abdomen Ultrasound 06/09/17 14:00 IMPRESSION: Unremarkable right upper quadrant ultrasound. D/ / Shwetha Willis MD / Shwetha Willis MD Interpreting Provider: Shwetha Willis MD Liver Scan Nuclear Medicine 06/11/17 06:11 IMPRESSION: The common and cystic ducts are demonstrated as patent. Normal gallbladder ejection fraction, calculated as 68%. D/ / Lane Yu MD / Lane Yu MD Interpreting Provider: Lane Yu MD impression: Normal esophagus. Granular gastric mucosa. Biopsy. Duodenitis. A single duodenal all up. Biopsy. Recommendation: Await pathology results. If pain persists and surgical input for poss GB. (2) Foot ulcer Current Visit: Yes Status: Chronic Assessment and plan: Small, round, open area approximately 2 mm wide and approximately 2 mm deep area no active drainage on my assessment. Does not appear acutely infected. Wound is on board. Follows with Dr. munoz outpatient. No signs of cellulitis or acute processes. Patient has an appointment scheduled with Dr. munoz 06/15/17, no indication for inpatient consultation. (3) DVT prophylaxis Current Visit: Yes Status: Acute Assessment and plan: Changing inpatient, subcutaneous heparin order (4) Nausea & vomiting Current Visit: Yes Status: Resolved Assessment and plan: Symptoms currently controlled, workup negative thus far Qualifiers: Vomiting type: cyclical vomiting Vomiting Intractability: non-intractable Qualified Code(s): G43.A0 - Cyclical vomiting, not intractable (5) Sleep apnea Current Visit: Yes Status: Chronic Assessment and plan: Endorses compliance, continue CPAP at bedtime Qualifiers: Sleep apnea type: obstructive Qualified Code(s): G47.33 - Obstructive sleep apnea (adult) (pediatric) (6) Diabetes Current Visit: Yes Status: Chronic Assessment and plan: Relatively well controlled with an A1c of 8.0%. Patient with insulin pump. Stable, will monitor Qualifiers: Diabetes mellitus type: type 2 Diabetes mellitus complication status: with skin complications Diabetes mellitus complication detail: with foot ulcer Diabetes mellitus custodial insulin use: with custodial use Qualified Code(s) : E11.621 - Type 2 diabetes mellitus with foot ulcer; L97.509 - Non-pressure chronic ulcer of other part of unspecified foot with unspecified severity; Z79.4 - meterman (current) use of insulin (7) HTN (hypertension) Current Visit: Yes Status: Chronic Assessment and plan: Controlled. We will continue to trend and adjust medications as indicated. Qualifiers: Hypertension type: essential hypertension Qualified Code(s): I10 - Essential (primary) hypertension (8) HLD (hyperlipidemia) Current Visit: Yes Status: Chronic Assessment and plan: Lipid panel mildly abnormal triglyceride 223, LDL normal, total cholesterol normal (9) Fluid overload Current Visit: Yes Status: Resolved Assessment and plan: Resolved. On furosemide at home. Patient stating 1+ pitting edema is his baseline. He denies shortness of breath above his norm. Tolerating room air. No crackles present on examination. Will monitor. Echocardiogram impressions: LVEF 55%. Normal LV chamber size, wall thickness and function. Moderate left ventricular diastolic dysfunction. Normal right ventricular size and function. No significant valvular dysfunction. No pulmonary hypertension. (10) Diastolic heart failure Current Visit: Yes Status: Acute Assessment and plan: See prior note for fluid overload. - Subjective Interval history: Patient seen and examined. On examination, patient sitting upright in his chair conversing with his father. Patient stating his pain is currently controlled because he just had a pain shot. He reports prior to that, he is still having severe, intermittent bouts of severe right upper quadrant abdominal pain. Patient sustained the pain is not getting better. - Constitutional Vitals: Temp Pulse Resp BP Pulse Ox 97.8 F 93 18 136/78 97 06/11/17 15:41 06/11/17 15:41 06/11/17 15:41 06/11/17 15:41 06/11/17 15:41 General appearance: Present: cooperative, A&O X 3, pleasant, no acute distress, obese, answers questions appropriately - Head Head exam: Present: atraumatic, normocephalic - Eye Eye exam: Present: PERRL, conjuntiva pink, sclera anicteric Pupils: Present: PERRL - Neck Neck exam general surgery: Present: supple, trachea midline. Absent: lymphadenopathy - Respiratory Respiratory exam: Present: decreased breath sounds. Absent: accessory muscle use, rales, respiratory distress, rhonchi, wheezes - Cardiovascular Cardiovascular exam: Present: RRR, +S1, +S2. Absent: diastolic murmur, gallop, rubs, systolic murmur - GI/Abdominal GI/Abdominal exam: Present: distended, normal bowel sounds, soft, tenderness ( RUQ), no peritoneal signs - Extremities Exam Extremities exam: Present: warm, radial pulses palpable and symetrical. Absent : calf tenderness, cyanotic, pedal edema - Neurological Exam Neurological exam: Present: alert, CN II-XII intact, normal gait, oriented X3, no focal deficits, strengths equal and symetr throughout. Absent: pronater drift, facial droop, speech deficit - Skin Skin exam: Present: dry, intact, normal color, warm Internal Medicine: Result - Labs CBC & Chem 7: 06/11/17 08:53 06/11/17 08:53 Labs: Short CBC 06/11/17 Range/Units 08:53 WBC 6.5 (4.3-11.1) K/mcL Hgb 17.2 H (12.9-16.9) g/dL Hct 49.8 (37.5-50.1) % Plt Count 264 (140-400) K/mcL Neutrophils # 4.0 (1.6-8.9) K/mcL BMP 06/11/17 08:53 Sodium 138 Potassium 4.2 Chloride 97 L Carbon Dioxide 30 H BUN 18 Creatinine 1.54 H Glucose 78 Calcium 10.0 - ABG Interpretation ABG results: PT/INR, D-dimer PT 10.8 Seconds (9.4-12.1) 06/09/17 02:26 - Impressions Impressions Liver Scan Nuclear Medicine 06/11/17 06:11 IMPRESSION: The common and cystic ducts are demonstrated as patent. Normal gallbladder ejection fraction, calculated as 68%. D/ / Lane Yu MD / Lane Yu MD Interpreting Provider: Lane Yu MD Consult Discharge Plan - Plan Referrals: Leslie Malhotra, LOADING MACHINE ADJUSTER [Primary Care Provider] -
[2017-06-11] MEDS: *HR* Heparin 5,000 UNIT/ML VIAL SQ SCH (17:23)
[2017-06-12] MEDS: D5% in 0.45% NACL 1,000 ML IVC SCH ×2 (01:18→19:57)
[2017-06-12] MEDS: *HR* Morphine 2 MG/ML SYRINGE IVP PRN ×3 (01:18→17:29)
[2017-06-12] MEDS: Ondansetron 4 MG/2 ML VIAL IVP PRN ×2 (02:47→17:28)
[2017-06-12] MEDS: *HR* HYDROcodone/Acet 5/325 mg TABLET PO PRN ×3 (02:58→21:41)
[2017-06-12 05:50] LABS: Bilirubin,Direct 0.2 mg/dL (0.0-0.5); Bilirubin,Indirect 0.3 mg/dL (0.0-1.2); Bilirubin,Total 0.5 mg/dL (0.2-1.2); Calcium 9.6 mg/dL (8.6-10.8); Potassium 4.3 mEq/L (3.5-4.5)
[2017-06-12] MEDS: *HR* Heparin 5,000 UNIT/ML VIAL SQ SCH ×2 (06:00→19:20)
--- NOTE | 2017-06-12 08:37 | Internal Med Progress Note ---
Date of Encounter: 06/12/17 Time of Encounter: 08:15 - Assessment and plan (1) RUQ abdominal pain Current Visit: Yes Status: Acute Assessment and plan: Patient remains with severe right upper quadrant abdominal pain requiring IV pain medication. Instructed that he is now nothing by mouth. Surgery has been brought onboard for consideration of possible cholecystectomy at their discretion. Extensive workup including abdominal pelvic CT, chest CT, right upper quadrant ultrasound, HIDA scan, EGD, lab work all unremarkable for acute processes. 06/11/17 Unclear causation at this time. Patient with right upper quadrant abdominal pain that started 3 days prior to presentation. Exquisitely tender to palpation. Worsened with movement, deep breaths, coughing. Patient also stating that he developed a cough at the same time as his right upper quadrant abdominal pain so a chest CT was obtained and was unremarkable. Abdominal CT unremarkable for acute processes as well as plain films of his abdomen revealing constipation. RUQ ultrasound also unremarkable. Chest x-ray negative. Repeat LFTs, lipase, amylase, bilirubin levels all normal. Lipase mildly elevated initially, now normal. Okayed to start eating 2 nights ago however changed back to NPO today secondary to continued RUQ pain. Urinalysis negative. Gallbladder ultrasound, chest CT, as well as abdominal labs all normal. Suspect biliary colic vs schincter of oddi dysfunction. GI brought onboard who performed both a HIDA scan and both an EGD that were unremarkable other than mild duodenitis on the EGD. Acute cholecystitis, acute cholangitis, acute hepatitis less likely given normal labs. Could also be musculoskeletal etiology given the exquisite tenderness with light palpation. Lidocaine patch tried without success. We will observe him overnight and if he continues to have right upper quadrant abdominal pain by tomorrow, will consult surgery for possible cholecystectomy at their discretion. ITS Impressions Abdomen/Pelvis CT 06/08/17 23:30 IMPRESSION: No acute findings. In particular there is no scan evidence for acute cholecystitis. D/ / Justin Avalos MD / Justin Avalos MD Interpreting Provider: Justin Avalos MD Chest x-ray from [place] 06/08/17-1054 impression: No acute process. Supine and upright views of the abdomen from [place] 06/08/17-1055 impression : No evidence of bowel obstruction. Constipation. Chest CT 06/09/17 13:53 IMPRESSION: No findings to account for chest pain. There is scarring versus atelectasis in the right middle lobe and lingula. There is a calcified granuloma on the right D/ / Lucio Negrete MD / Lucio Negrete MD Interpreting Provider: Lucio Negrete MD Abdomen Ultrasound 06/09/17 14:00 IMPRESSION: Unremarkable right upper quadrant ultrasound. D/ / Shwetha Willis MD / Shwetha Willis MD Interpreting Provider: Shwetha Willis MD Liver Scan Nuclear Medicine 06/11/17 06:11 IMPRESSION: The common and cystic ducts are demonstrated as patent. Normal gallbladder ejection fraction, calculated as 68%. D/ / Lane Yu MD / Lane Yu MD Interpreting Provider: Lane Yu MD impression: Normal esophagus. Granular gastric mucosa. Biopsy. Duodenitis. A single duodenal all up. Biopsy. Recommendation: Await pathology results. If pain persists and surgical input for poss GB. (2) Foot ulcer Current Visit: Yes Status: Chronic Assessment and plan: Small, round, open area approximately 2 mm wide and approximately 2 mm deep area no active drainage on my assessment. Does not appear acutely infected. Wound is on board. Follows with Dr. munoz outpatient. No signs of cellulitis or acute processes. Patient has an appointment scheduled with Dr. munoz 06/15/17, no indication for inpatient consultation. (3) DVT prophylaxis Current Visit: Yes Status: Acute Assessment and plan: subcutaneous heparin (4) Nausea & vomiting Current Visit: Yes Status: Resolved Assessment and plan: Symptoms currently controlled, workup negative thus far Qualifiers: Vomiting type: cyclical vomiting Vomiting Intractability: non-intractable Qualified Code(s): G43.A0 - Cyclical vomiting, not intractable (5) Sleep apnea Current Visit: Yes Status: Chronic Assessment and plan: Endorses compliance, continue CPAP at bedtime Qualifiers: Sleep apnea type: obstructive Qualified Code(s): G47.33 - Obstructive sleep apnea (adult) (pediatric) (6) Diabetes Current Visit: Yes Status: Chronic Assessment and plan: Relatively well controlled with an A1c of 8.0%. Patient with insulin pump. 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 We will continue to trend and adjust medications as indicated. Qualifiers: Hypertension type: essential hypertension Qualified Code(s): I10 - Essential (primary) hypertension (8) HLD (hyperlipidemia) Current Visit: Yes Status: Chronic Assessment and plan: Lipid panel mildly abnormal triglyceride 223, LDL normal, total cholesterol normal (9) Fluid overload Current Visit: Yes Status: Resolved Assessment and plan: Resolved. On furosemide at home. Patient stating 1+ pitting edema is his baseline. He denies shortness of breath above his norm. Tolerating room air. No crackles present on examination. Will monitor. Acute on chronic diastolic heart failure with acute exacerbation now resolved. Echocardiogram impressions: LVEF 55%. Normal LV chamber size, wall thickness and function. Moderate left ventricular diastolic dysfunction. Normal right ventricular size and function. No significant valvular dysfunction. No pulmonary hypertension. (10) Diastolic heart failure Current Visit: Yes Status: Acute Assessment and plan: See prior note for fluid overload. (11) SAUL (acute kidney injury) Current Visit: Yes Status: Acute Assessment and plan: Mild acute kidney injury noted overnight. We will hold furosemide and give gentle IV fluids. Patient with diastolic heart failure, will monitor closely - Subjective Interval history: Patient seen and examined. On examination, patient sitting upright in his chair eating breakfast. Patient continues to endorse severe right upper quadrant abdominal pain requiring IV pain medication. He was instructed to stop eating, now nothing by mouth. - Constitutional Vitals: Temp Pulse Resp BP Pulse Ox 98.2 F 86 20 134/89 94 06/12/17 06:38 06/12/17 06:38 06/12/17 06:38 06/12/17 06:38 06/12/17 06:38 General appearance: Present: cooperative, A&O X 3, pleasant, no acute distress, obese, answers questions appropriately - Head Head exam: Present: atraumatic, normocephalic - Eye Eye exam: Present: PERRL, conjuntiva pink, sclera anicteric Pupils: Present: PERRL - Neck Neck exam general surgery: Present: supple, trachea midline. Absent: lymphadenopathy - Respiratory Respiratory exam: Present: CTAB. Absent: accessory muscle use, rales, respiratory distress, rhonchi, wheezes - Cardiovascular Cardiovascular exam: Present: RRR, +S1, +S2. Absent: diastolic murmur, gallop, rubs, systolic murmur - GI/Abdominal GI/Abdominal exam: Present: distended, normal bowel sounds, soft, tenderness ( RUQ), no peritoneal signs - Extremities Exam Extremities exam: Present: warm, radial pulses palpable and symetrical. Absent : calf tenderness, cyanotic, pedal edema - Neurological Exam Neurological exam: Present: alert, CN II-XII intact, normal gait, oriented X3, no focal deficits, strengths equal and symetr throughout. Absent: pronater drift, facial droop, speech deficit - Skin Skin exam: Present: dry, intact, normal color, warm Internal Medicine: Result - Labs CBC & Chem 7: 06/11/17 08:53 06/12/17 04:33 Labs: Short CBC 06/11/17 Range/Units 08:53 WBC 6.5 (4.3-11.1) K/mcL Hgb 17.2 H (12.9-16.9) g/dL Hct 49.8 (37.5-50.1) % Plt Count 264 (140-400) K/mcL Neutrophils # 4.0 (1.6-8.9) K/mcL BMP 06/11/17 06/12/17 08:53 04:33 Sodium 138 135 L Potassium 4.2 4.3 Chloride 97 L 96 L Carbon Dioxide 30 H 30 H BUN 18 20 Creatinine 1.54 H 1.62 H Glucose 78 159 H Calcium 10.0 9.6 Liver Function 06/12/17 Range/Units 04:33 Total Bilirubin 0.5 (0.2-1.2) mg/dL Direct Bilirubin 0.2 (0.0-0.5) mg/dL - ABG Interpretation ABG results: PT/INR, D-dimer PT 10.8 Seconds (9.4-12.1) 06/09/17 02:26 - Impressions Impressions Liver Scan Nuclear Medicine 06/11/17 06:11 IMPRESSION: The common and cystic ducts are demonstrated as patent. Normal gallbladder ejection fraction, calculated as 68%. D/ / Lane Yu MD / Lane Yu MD Interpreting Provider: Lane Yu MD Consult Discharge Plan - Plan Referrals: Leslie Malhotra, FISHERIES MANAGEMENT BIOLOGIST [Primary Care Provider] -
[2017-06-12] MEDS ORDERED: 0.9 % Sodium Chloride 1,000 ML IVC SCH (08:45)
--- NOTE | 2017-06-12 10:11 | General Surgery Consult Note ---
Date of Encounter: 06/12/17 Time of Encounter: 10:08 Past Med Surg Social Fam HX - Past Medical History Medical history: arthritis, asthma, diabetes, hyperlipidemia, hypertension Psychiatric history: anxiety, depression - Past Surgical History Surgical History: appendectomy, herniorrhaphy, orthopedic, other (Right carpal tunnel), other (Right foot) - Social History Smoking Status: Current every day smoker Packs per day: 1-2 cigarettes per day Smokeless Tobacco Status: Yes (1 can per day) Alcohol use: occasionally Drug use: none Medications and Allergies Lisinopril [Zestril] 40 mg PO DAILY 08/04/16 [History] Metoprolol XL (24 HR) Succ [Toprol XL] 100 mg PO DAILY 11/25/16 [History] Albuterol Sulfate [Proair Hfa] 2 puff IH Q4H PRN 01/28/17 [History] Montelukast [Singulair] 10 mg PO DAILY 01/28/17 [History] Fluticasone/Vilanterol [Breo Ellipta 100-25 Mcg INH] 1 puff IH DAILY 04/28/17 [ History] Ibuprofen [Motrin] 800 mg PO Q8HR PRN 04/28/17 [History] Subcutaneous Insulin Pump [T:Slim] 3 units MC Q1H PRN 04/28/17 [History] Atorvastatin [Lipitor] 20 mg PO HS 05/28/17 [History] Furosemide [Lasix] 20 mg PO BID #14 tablet 05/28/17 [Rx] Methocarbamol [Robaxin-750] 750 mg PO Q8H PRN 06/08/17 [History] Potassium Citrate [Urocit-K] 10 meq PO DAILY 06/08/17 [History] Pregabalin [Lyrica] 200 mg PO BID 06/08/17 [History] Allergies Penicillins [PCN] Allergy (Verified 06/08/17 19:16) raises blood sugar patient states advised as child not to take due to diabetes Review of Systems All systems PM: A 10-system review of systems was performed and is negative for pertinent findings except as documented above in the HPI. General Surgery Exam Initial Vital Signs Temp Pulse Resp BP Pulse Ox 98.1 F 76 16 158/95 97 06/08/17 13:59 06/08/17 13:59 06/08/17 13:59 06/08/17 13:59 06/08/17 13:59 Exam Initial Vital Signs Temp Pulse Resp BP Pulse Ox 98.1 F 76 16 158/95 97 06/08/17 13:59 06/08/17 13:59 06/08/17 13:59 06/08/17 13:59 06/08/17 13:59 Results - Labs 06/11/17 08:53 06/12/17 04:33 Abnormal lab results Hgb 17.2 g/dL (12.9-16.9) H 06/11/17 08:53 MPV 9.3 fL (9.4-12.4) L 06/11/17 08:53 Sodium 135 mEq/L (136-145) L 06/12/17 04:33 Chloride 96 mEq/L (98-109) L 06/12/17 04:33 Carbon Dioxide 30 mEq/L (19-29) H 06/12/17 04:33 Creatinine 1.62 mg/dL (0.72-1.25) H 06/12/17 04:33 Est GFR ( Amer) 58 (> 60) L 06/12/17 04:33 Est GFR (Non-Af Amer) 48 (> 60) L 06/12/17 04:33 Glucose 159 mg/dL (70-99) H 06/12/17 04:33 POC Glucose 232 (58-89) H 06/12/17 01:14 Hemoglobin A1c 8.0 % (-5.6) H 06/09/17 02:26 Albumin 3.1 g/dL (3.5-5.0) L 06/09/17 13:51 Albumin/Globulin Ratio 0.9 (1.1-2.2) L 06/09/17 13:51 Triglycerides 223 mg/dL (< 150) H 06/09/17 02:26 VLDL Cholesterol, Calc 45 mg/dL (< 31) H 06/09/17 02:26 HDL Cholesterol 30 mg/dL (40-59) L 06/09/17 02:26 Diabetes panel 06/12/17 Range/Units 04:33 Sodium 135 L (136-145) mEq/L Potassium 4.3 (3.5-4.5) mEq/L Chloride 96 L (98-109) mEq/L Carbon Dioxide 30 H (19-29) mEq/L BUN 20 (8-26) mg/dL Creatinine 1.62 H (0.72-1.25) mg/dL Glucose 159 H (70-99) mg/dL Calcium 9.6 (8.6-10.8) mg/dL Calcium panel 06/12/17 Range/Units 04:33 Calcium 9.6 (8.6-10.8) mg/dL Pituitary panel 06/12/17 Range/Units 04:33 Sodium 135 L (136-145) mEq/L Potassium 4.3 (3.5-4.5) mEq/L Chloride 96 L (98-109) mEq/L Carbon Dioxide 30 H (19-29) mEq/L BUN 20 (8-26) mg/dL Creatinine 1.62 H (0.72-1.25) mg/dL Glucose 159 H (70-99) mg/dL Calcium 9.6 (8.6-10.8) mg/dL Adrenal panel 06/12/17 Range/Units 04:33 Sodium 135 L (136-145) mEq/L Potassium 4.3 (3.5-4.5) mEq/L Chloride 96 L (98-109) mEq/L Carbon Dioxide 30 H (19-29) mEq/L BUN 20 (8-26) mg/dL Creatinine 1.62 H (0.72-1.25) mg/dL Glucose 159 H (70-99) mg/dL Calcium 9.6 (8.6-10.8) mg/dL Total Bilirubin 0.5 (0.2-1.2) mg/dL All other labs normal. Consult Discharge Plan - Plan Referrals: Leslie Malhotra, APPLICATIONS DEVELOPMENT ANALYST [Primary Care Provider] -
[2017-06-12 11:15] LABS: Hepatitis A Antibody IgM Nonreactive (Nonreactive); Hepatitis B Core IgM Nonreactive (Nonreactive); Hepatitis B Surface Antigen Nonreactive (Nonreactive); Hepatitis C Virus Antibody Nonreactive (Nonreactive)
--- NOTE | 2017-06-12 11:51 | General Surgery Consult Note ---
<Catherine Robbins Aarti - Last Filed: 06/12/17 11:55> Date of Encounter: 06/12/17 Time of Encounter: 10:00 Assessment and Plan (1) Biliary colic Current Visit: Yes Status: Acute The risks, benefits, alternatives, expected outcomes of the reviewed with the patient and he is agreement to proceed to the operating room with Dr. Kulkarni for a laparoscopic cholecystectomy with possible open procedure, possible cholangiogram. Diabetic diet Nothing by mouth after midnight Supportive care and pain control Pre-operative antibiotic (2) Obesity (BMI 30-39.9) Current Visit: Yes Status: Chronic (3) Diabetes Current Visit: Yes Status: Chronic Poorly controlled Management per medicine service Qualifiers: Diabetes mellitus type: type 2 Diabetes mellitus complication status: with skin complications Diabetes mellitus complication detail: with foot ulcer Diabetes mellitus mcc insulin use: with defensive secondary coach use Qualified Code(s) : E11.621 - Type 2 diabetes mellitus with foot ulcer; L97.509 - Non-pressure chronic ulcer of other part of unspecified foot with unspecified severity; 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 (4) HLD (hyperlipidemia) Current Visit: Yes Status: Chronic Qualifiers: Hyperlipidemia type: other hyperlipidemia Qualified Code(s): E78.4 - Other hyperlipidemia (5) HTN (hypertension) Current Visit: Yes Status: Chronic Patient is currently on BB therapy Management per medicine service Qualifiers: Hypertension type: essential hypertension Qualified Code(s): I10 - Essential (primary) hypertension (6) DVT prophylaxis Current Visit: Yes Status: Acute Heparin 5,000 units twice daily for DVT prophylaxis History of Present Illness Consult date: 06/12/17 Requesting physician: Radha Quach History of present illness: Mr. Kilpatrick is a 36 year old male with a past medical history significant for arthritis, hypertension, hyperlipidemia, diabetes, obesity, asthma. He presented to the hospital with a 2 week history of abdominal pain with associated nausea and vomiting. He states that his abdominal pain is located in the right upper quadrant. He states that the right upper quadrant abdominal pain has been constant over the past 2 weeks. He describes it as a sharp and stabbing pain which is aggravated by food intake. He denies any alleviating factors. He states he has never experienced pain like this in the past. He does report associated nausea and vomiting but denies any hematemesis or coffee- ground emesis. Admits to constipation but denies any diarrhea. He does admit to heartburn symptoms. Denies any fevers or chills. Denies any difficulty with urination. He did have an upper endoscopy with Dr. calle which showed no significant findings. He has had a normal right upper quadrant ultrasound complete. He did have a HIDA scan complete and he reports that he did have recreation of his right upper quadrant abdominal pain with the injection of Kinevac. We have been asked to see and evaluate the patient for recommendations. Past Med Surg Social Fam HX - Past Medical History Source: patient, old records reviewed Medical history: arthritis, asthma, diabetes, hyperlipidemia, hypertension, other (Obesity) Psychiatric history: anxiety, depression - Past Surgical History Surgical History: appendectomy, herniorrhaphy, orthopedic, other (Right carpal tunnel), other (Right foot) - Social History Smoking Status: Current every day smoker Packs per day: 1-2 cigarettes per day Smokeless Tobacco Status: Yes (1 can per day) Alcohol use: occasionally Drug use: none Occupational status: disabled Current living situation: Home - Independent Activity Level: Independent ambulation Medications and Allergies Lisinopril [Zestril] 40 mg PO DAILY 08/04/16 [History] Metoprolol XL (24 HR) Succ [Toprol XL] 100 mg PO DAILY 11/25/16 [History] Albuterol Sulfate [Proair Hfa] 2 puff IH Q4H PRN 01/28/17 [History] Montelukast [Singulair] 10 mg PO DAILY 01/28/17 [History] Fluticasone/Vilanterol [Breo Ellipta 100-25 Mcg INH] 1 puff IH DAILY 04/28/17 [ History] Ibuprofen [Motrin] 800 mg PO Q8HR PRN 04/28/17 [History] Subcutaneous Insulin Pump [T:Slim] 3 units MC Q1H PRN 04/28/17 [History] Atorvastatin [Lipitor] 20 mg PO HS 05/28/17 [History] Furosemide [Lasix] 20 mg PO BID #14 tablet 05/28/17 [Rx] Methocarbamol [Robaxin-750] 750 mg PO Q8H PRN 06/08/17 [History] Potassium Citrate [Urocit-K] 10 meq PO DAILY 06/08/17 [History] Pregabalin [Lyrica] 200 mg PO BID 06/08/17 [History] Allergies Penicillins [PCN] Allergy (Verified 06/08/17 19:16) raises blood sugar patient states advised as child not to take due to diabetes Review of Systems ROS unobtainable: due to endotracheal tube (in the HPI) All systems PM: reviewed and no additional remarkable complaints except as stated All systems PM: A 10-system review of systems was performed and is negative for pertinent findings except as documented above in the HPI. General Surgery Exam Initial Vital Signs Temp Pulse Resp BP Pulse Ox 98.1 F 76 16 158/95 97 06/08/17 13:59 06/08/17 13:59 06/08/17 13:59 06/08/17 13:59 06/08/17 13:59 - General physical appearance well developed, well nourished, no distress - Eyes normal ocular movement - ENT normal mucosa, atraumatic, normocephalic - Neck trachea midline - Respiratory normal respiratory effort, clear to auscultation - Cardiovascular Cardiovascular exam: Present: RRR - Abdomen Abdomen general surgery: Present: bowel sounds present, soft, tender Abdominal Tenderness: Present: RUQ - Integumentary Integumentary general surgery: Present: warm and dry - Neurologic Present: CN 2-12 grossly intact - Musculoskeletal Present: normal gait, normal posture - Psychiatric Psychiatric general surgery: Present: appropriate, oriented to person, oriented to place, oriented to time, speech is normal, memory intact Exam Initial Vital Signs Temp Pulse Resp BP Pulse Ox 98.1 F 76 16 158/95 97 06/08/17 13:59 06/08/17 13:59 06/08/17 13:59 06/08/17 13:59 06/08/17 13:59 Results - Labs 06/11/17 08:53 06/12/17 04:33 Abnormal lab results Hgb 17.2 g/dL (12.9-16.9) H 06/11/17 08:53 MPV 9.3 fL (9.4-12.4) L 06/11/17 08:53 Sodium 135 mEq/L (136-145) L 06/12/17 04:33 Chloride 96 mEq/L (98-109) L 06/12/17 04:33 Carbon Dioxide 30 mEq/L (19-29) H 06/12/17 04:33 Creatinine 1.62 mg/dL (0.72-1.25) H 06/12/17 04:33 Est GFR ( Amer) 58 (> 60) L 06/12/17 04:33 Est GFR (Non-Af Amer) 48 (> 60) L 06/12/17 04:33 Glucose 159 mg/dL (70-99) H 06/12/17 04:33 POC Glucose 232 (58-89) H 06/12/17 01:14 Hemoglobin A1c 8.0 % (-5.6) H 06/09/17 02:26 Albumin 3.1 g/dL (3.5-5.0) L 06/09/17 13:51 Albumin/Globulin Ratio 0.9 (1.1-2.2) L 06/09/17 13:51 Triglycerides 223 mg/dL (< 150) H 06/09/17 02:26 VLDL Cholesterol, Calc 45 mg/dL (< 31) H 06/09/17 02:26 HDL Cholesterol 30 mg/dL (40-59) L 06/09/17 02:26 Diabetes panel 06/12/17 Range/Units 04:33 Sodium 135 L (136-145) mEq/L Potassium 4.3 (3.5-4.5) mEq/L Chloride 96 L (98-109) mEq/L Carbon Dioxide 30 H (19-29) mEq/L BUN 20 (8-26) mg/dL Creatinine 1.62 H (0.72-1.25) mg/dL Glucose 159 H (70-99) mg/dL Calcium 9.6 (8.6-10.8) mg/dL Calcium panel 06/12/17 Range/Units 04:33 Calcium 9.6 (8.6-10.8) mg/dL Pituitary panel 06/12/17 Range/Units 04:33 Sodium 135 L (136-145) mEq/L Potassium 4.3 (3.5-4.5) mEq/L Chloride 96 L (98-109) mEq/L Carbon Dioxide 30 H (19-29) mEq/L BUN 20 (8-26) mg/dL Creatinine 1.62 H (0.72-1.25) mg/dL Glucose 159 H (70-99) mg/dL Calcium 9.6 (8.6-10.8) mg/dL Adrenal panel 06/12/17 Range/Units 04:33 Sodium 135 L (136-145) mEq/L Potassium 4.3 (3.5-4.5) mEq/L Chloride 96 L (98-109) mEq/L Carbon Dioxide 30 H (19-29) mEq/L BUN 20 (8-26) mg/dL Creatinine 1.62 H (0.72-1.25) mg/dL Glucose 159 H (70-99) mg/dL Calcium 9.6 (8.6-10.8) mg/dL Total Bilirubin 0.5 (0.2-1.2) mg/dL All other labs normal. - Imaging Additional studies: Abdomen/Pelvis CT 06/08/17 23:30 IMPRESSION: No acute findings. In particular there is no scan evidence for acute cholecystitis. D/ / Justin Avalos MD / Justin Avalos MD Interpreting Provider: Justin Avalos MD Chest CT 06/09/17 13:53 IMPRESSION: No findings to account for chest pain. There is scarring versus atelectasis in the right middle lobe and lingula. There is a calcified granuloma on the right D/ / Lucio Negrete MD / Lucio Negrete MD Interpreting Provider: Lucio Negrete MD Abdomen Ultrasound 06/09/17 14:00 IMPRESSION: Unremarkable right upper quadrant ultrasound. D/ / Shwetha Willis MD / Shwetha Willis MD Interpreting Provider: Shwetha Willis MD Liver Scan Nuclear Medicine 06/11/17 06:11 IMPRESSION: The common and cystic ducts are demonstrated as patent. Normal gallbladder ejection fraction, calculated as 68%. D/ / Lane Yu MD / Lane Yu MD Interpreting Provider: Lane Yu MD Consult Discharge Plan - Plan Referrals: Leslie Malhotra, KILN PULLER [Primary Care Provider] - - Attending Attestation For this encounter, I have reviewed the DIGITAL CARTOGRAPHIC TECHNICIAN or PA documentation, treatment plan, and medical decision making; and I have had face to face time with this patient. <Lavonne Kulkarni - Last Filed: 06/13/17 19:12> Date of Encounter: 06/12/17 Time of Encounter: 17:10 Assessment and Plan (1) Biliary dyskinesia Current Visit: Yes Status: Acute discussed with patient his labs, US gallbladder, hida scan. He was symptomatic with abdominal pain RUQ during second injection during HIDA. Patient is very tender in RUQ. WIll plan laparoscopic cholecystectomy, possible cholangiograms, possible open, risks and benefits discussed and he wishes to proceed ok clears today and npo at midnight prn pain control (2) Hyperkalemia Current Visit: Yes Status: Acute Review of Systems All systems PM: reviewed and no additional remarkable complaints except as stated All systems PM: A 10-system review of systems was performed and is negative for pertinent findings except as documented above in the HPI. General Surgery Exam Initial Vital Signs Temp Pulse Resp BP Pulse Ox 98.1 F 76 16 158/95 97 06/08/17 13:59 06/08/17 13:59 06/08/17 13:59 06/08/17 13:59 06/08/17 13:59 - General physical appearance well developed, well nourished, no distress, obese - Eyes PERRL, normal ocular movement - ENT normal mucosa, normocephalic - Respiratory normal expansion, clear to auscultation - Cardiovascular Cardiovascular exam: Present: RRR - Abdomen Abdomen general surgery: Present: bowel sounds present, soft, tender. Absent: distended, guarding, rebound Abdominal Tenderness: Present: RUQ - Integumentary Integumentary general surgery: Present: warm and dry, no abnormal pigmentation - Neurologic Present: CN 2-12 grossly intact - Musculoskeletal Present: normal gait, normal posture - Psychiatric Psychiatric general surgery: Present: A&Ox3, speech is normal Exam Initial Vital Signs Temp Pulse Resp BP Pulse Ox 98.1 F 76 16 158/95 97 06/08/17 13:59 06/08/17 13:59 06/08/17 13:59 06/08/17 13:59 06/08/17 13:59 Results - Labs 06/11/17 08:53 06/13/17 15:56 Abnormal lab results Hgb 17.2 g/dL (12.9-16.9) H 06/11/17 08:53 MPV 9.3 fL (9.4-12.4) L 06/11/17 08:53 Sodium 133 mEq/L (136-145) L 06/13/17 15:56 Potassium 5.1 mEq/L (3.5-4.5) H D 06/13/17 15:56 BUN 27 mg/dL (8-26) H 06/13/17 15:56 Creatinine 1.51 mg/dL (0.72-1.25) H 06/13/17 15:56 Est GFR (Non-Af Amer) 52 (> 60) L 06/13/17 15:56 Glucose 216 mg/dL (70-99) H 06/13/17 15:56 POC Glucose 308 (58-89) H 06/13/17 10:15 Hemoglobin A1c 8.0 % (-5.6) H 06/09/17 02:26 Albumin 3.1 g/dL (3.5-5.0) L 06/09/17 13:51 Albumin/Globulin Ratio 0.9 (1.1-2.2) L 06/09/17 13:51 Triglycerides 223 mg/dL (< 150) H 06/09/17 02:26 VLDL Cholesterol, Calc 45 mg/dL (< 31) H 06/09/17 02:26 HDL Cholesterol 30 mg/dL (40-59) L 06/09/17 02:26 Diabetes panel 06/13/17 06/13/17 Range/Units 09:21 15:56 Sodium 131 L 133 L (136-145) mEq/L Potassium 6.3 H D 5.1 H D (3.5-4.5) mEq/L Chloride 98 100 (98-109) mEq/L Carbon Dioxide 23 26 (19-29) mEq/L BUN 32 H D 27 H (8-26) mg/dL Creatinine 1.99 H 1.51 H (0.72-1.25) mg/dL Glucose 400 H 216 H (70-99) mg/dL Calcium 9.8 10.1 (8.6-10.8) mg/dL Calcium panel 06/13/17 06/13/17 Range/Units 09:21 15:56 Calcium 9.8 10.1 (8.6-10.8) mg/dL Pituitary panel 06/13/17 06/13/17 Range/Units 09:21 15:56 Sodium 131 L 133 L (136-145) mEq/L Potassium 6.3 H D 5.1 H D (3.5-4.5) mEq/L Chloride 98 100 (98-109) mEq/L Carbon Dioxide 23 26 (19-29) mEq/L BUN 32 H D 27 H (8-26) mg/dL Creatinine 1.99 H 1.51 H (0.72-1.25) mg/dL Glucose 400 H 216 H (70-99) mg/dL Calcium 9.8 10.1 (8.6-10.8) mg/dL Adrenal panel 06/13/17 06/13/17 Range/Units 09:21 15:56 Sodium 131 L 133 L (136-145) mEq/L Potassium 6.3 H D 5.1 H D (3.5-4.5) mEq/L Chloride 98 100 (98-109) mEq/L Carbon Dioxide 23 26 (19-29) mEq/L BUN 32 H D 27 H (8-26) mg/dL Creatinine 1.99 H 1.51 H (0.72-1.25) mg/dL Glucose 400 H 216 H (70-99) mg/dL Calcium 9.8 10.1 (8.6-10.8) mg/dL All other labs normal. - Attending Attestation I have personally performed a face to face evaluation on this patient. I have reviewed and agree with the care plan. History and Exam by me shows: biliary dyskinesia
[2017-06-12] MEDS: Furosemide 20 MG TABLET PO SCH (13:12)
[2017-06-12] MEDS: (Fluticasone/Vilanterol [Breo Ellipta 100-25 Mcg Inh] IH SCH (13:14)
[2017-06-12] MEDS: Pregabalin 50 MG CAPSULE PO SCH ×2 (13:16→19:58)
[2017-06-12] MEDS: Metoprolol XL (24 HR) Succ 50 MG TAB.ER.24H PO SCH (13:17)
[2017-06-12] MEDS: Lisinopril 20 MG TABLET PO SCH (13:17)
[2017-06-12] MEDS: Pantoprazole 40 MG VIAL IVP SCH (13:17)
[2017-06-12] MEDS: Potassium Citrate 10 MEQ TABLET.ER PO SCH (13:17)
[2017-06-12] MEDS ORDERED: *HR* Propofol 200 MG/20 ML VIAL IVP ONE (14:13)
[2017-06-12] MEDS ORDERED: Lidocaine -MPF 2% 5 ML VIAL INFILT ONE (14:13)
[2017-06-13] MEDS ORDERED: 0.9 % Sodium Chloride 1,000 ML IVC SCH (05:00)
[2017-06-13] MEDS: *HR* Heparin 5,000 UNIT/ML VIAL SQ SCH ×2 (05:13→14:06)
[2017-06-13] MEDS ORDERED: Insulin LISPRO 300 UNITS/3 ML VIAL SQ ONE ×2 (06:33→08:46)
[2017-06-13] MEDS ORDERED: cefOXitin 2,000 MG in D5% in Water (Mini-Bag+) 100 ML IVPB ONE (08:00)
[2017-06-13] MEDS: Metoprolol XL (24 HR) Succ 50 MG TAB.ER.24H PO SCH (09:25)
[2017-06-13 10:21] LABS: Calcium 9.8 mg/dL (8.6-10.8); Potassium 6.3 mEq/L (3.5-4.5)
[2017-06-13] MEDS: Potassium Citrate 10 MEQ TABLET.ER PO SCH (11:42)
--- NOTE | 2017-06-13 11:52 | Internal Med Progress Note ---
Date of Encounter: 06/13/17 Time of Encounter: 09:30 - Assessment and plan (1) Hyperkalemia Current Visit: Yes Status: Acute Assessment and plan: strongly suspect pseudohyperkalemia given his SAUL and elevated glucose readings overnight. Will increase his IVF closely and will continue to treat his elevated glucose readings which are slowly trending down. There was also report of difficulty obtaining his blood which could have been a contributing factor with hemolysis. Will recheck in am, and if better, he is scheduled to have a lap serg in the am per Dr Kulkarni. Update at 1937: Repeat BMP this later this afternoon shows improvement and acute kidney injury and decreased to potassium, continue current plan of care and recheck in the morning. (2) RUQ abdominal pain Current Visit: Yes Status: Acute Assessment and plan: Plan was for cholescystectomy today however the patient's hyperkalemia has pushed the surgery back to tomorrow. Will increase IVF and monitor. Patient remains with severe right upper quadrant abdominal pain requiring IV pain medication. Extensive workup including abdominal pelvic CT, chest CT, right upper quadrant ultrasound, HIDA scan, EGD, lab work all unremarkable for acute processes. 06/11/17 Unclear causation at this time. Patient with right upper quadrant abdominal pain that started 3 days prior to presentation. Exquisitely tender to palpation. Worsened with movement, deep breaths, coughing. Patient also stating that he developed a cough at the same time as his right upper quadrant abdominal pain so a chest CT was obtained and was unremarkable. Abdominal CT unremarkable for acute processes as well as plain films of his abdomen revealing constipation. RUQ ultrasound also unremarkable. Chest x-ray negative. Repeat LFTs, lipase, amylase, bilirubin levels all normal. Lipase mildly elevated initially, now normal. Okayed to start eating 2 nights ago however changed back to NPO today secondary to continued RUQ pain. Urinalysis negative. Gallbladder ultrasound, chest CT, as well as abdominal labs all normal. Suspect biliary colic vs schincter of oddi dysfunction. GI brought onboard who performed both a HIDA scan and both an EGD that were unremarkable other than mild duodenitis on the EGD. Acute cholecystitis, acute cholangitis, acute hepatitis less likely given normal labs. Could also be musculoskeletal etiology given the exquisite tenderness with light palpation. Lidocaine patch tried without success. We will observe him overnight and if he continues to have right upper quadrant abdominal pain by tomorrow, will consult surgery for possible cholecystectomy at their discretion. ITS Impressions Abdomen/Pelvis CT 06/08/17 23:30 IMPRESSION: No acute findings. In particular there is no scan evidence for acute cholecystitis. D/ / Justin Avalos MD / Justin Avalos MD Interpreting Provider: Justin Avalos MD Chest x-ray from [facility] 06/08/17-1054 impression: No acute process. Supine and upright views of the abdomen from [facility] 06/08/17-1055 impression : No evidence of bowel obstruction. Constipation. Chest CT 06/09/17 13:53 IMPRESSION: No findings to account for chest pain. There is scarring versus atelectasis in the right middle lobe and lingula. There is a calcified granuloma on the right D/ / Lucio Negrete MD / Lucio Negrete MD Interpreting Provider: Lucio Negrete MD Abdomen Ultrasound 06/09/17 14:00 IMPRESSION: Unremarkable right upper quadrant ultrasound. D/ / Shwetha Willis MD / Shwetha Willis MD Interpreting Provider: Shwetha Willis MD Liver Scan Nuclear Medicine 06/11/17 06:11 IMPRESSION: The common and cystic ducts are demonstrated as patent. Normal gallbladder ejection fraction, calculated as 68%. D/ / Lane Yu MD / Lane Yu MD Interpreting Provider: Lane Yu MD impression: Normal esophagus. Granular gastric mucosa. Biopsy. Duodenitis. A single duodenal all up. Biopsy. Recommendation: Await pathology results. If pain persists and surgical input for poss GB. (3) Foot ulcer Current Visit: Yes Status: Chronic Assessment and plan: Small, round, open area approximately 2 mm wide and approximately 2 mm deep area no active drainage on my assessment. Does not appear acutely infected. Wound is on board. Follows with Dr. munoz outpatient. No signs of cellulitis or acute processes. Patient has an appointment scheduled with Dr. munoz 06/15/17, no indication for inpatient consultation. Wound appears to be healing well- will push back his appointment with Dr Munoz if he is discharged tomorrow. Inpatient consult if still here thursday. Qualifiers: Laterality: right Non-pressure ulcer stage: unspecified non-pressure ulcer stage Qualified Code(s): L97.519 - Non-pressure chronic ulcer of other part of right foot with unspecified severity (4) DVT prophylaxis Current Visit: Yes Status: Acute Assessment and plan: subcutaneous heparin (5) Nausea & vomiting Current Visit: Yes Status: Resolved Qualifiers: Vomiting type: cyclical vomiting Vomiting Intractability: non-intractable Qualified Code(s): G43.A0 - Cyclical vomiting, not intractable (6) Sleep apnea Current Visit: Yes Status: Chronic Assessment and plan: Endorses compliance, continue CPAP at bedtime Qualifiers: Sleep apnea type: obstructive Qualified Code(s): G47.33 - Obstructive sleep apnea (adult) (pediatric) (7) Diabetes Current Visit: Yes Status: Chronic Assessment and plan: Relatively well controlled at home with an A1c of 8.0%. Patient with insulin pump that was turned off for upcoming surgery and his NPO status. He is type 2. Became hyperglycemic overnight- trending back down. 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 We will continue to trend and adjust medications as indicated. Qualifiers: Hypertension type: essential hypertension Qualified Code(s): I10 - Essential (primary) hypertension (9) HLD (hyperlipidemia) Current Visit: Yes Status: Chronic Assessment and plan: Lipid panel mildly abnormal triglyceride 223, LDL normal, total cholesterol normal Qualifiers: Hyperlipidemia type: other hyperlipidemia Qualified Code(s): E78.4 - Other hyperlipidemia (10) Fluid overload Current Visit: Yes Status: Resolved Assessment and plan: Resolved. On furosemide at home. Patient stating 1+ pitting edema is his baseline. He denies shortness of breath above his norm. Tolerating room air. No crackles present on examination. Will monitor. Acute on chronic diastolic heart failure with acute exacerbation now resolved. Will monitor closely given that he is receiving IVF for his SAUL. Echocardiogram impressions: LVEF 55%. Normal LV chamber size, wall thickness and function. Moderate left ventricular diastolic dysfunction. Normal right ventricular size and function. No significant valvular dysfunction. No pulmonary hypertension. Qualifiers: Hypervolemia type: unspecified Qualified Code(s): E87.70 - Fluid overload, unspecified (11) Diastolic heart failure Current Visit: Yes Status: Acute Assessment and plan: See prior note for fluid overload. Qualifiers: Heart failure chronicity: acute on chronic Qualified Code(s): I50.33 - Acute on chronic diastolic (congestive) heart failure (12) SAUL (acute kidney injury) Current Visit: Yes Status: Acute Assessment and plan: Worsened overnight despite receiving gentle IVF. Will increase his rate and monitor. Will recheck in am. Still holding furosemide and Lisinopril. Patient with diastolic heart failure, will monitor closely Update at 1937: Repeat BMP later this afternoon revealing improvement in his acute kidney injury as well as in his hyperkalemia. Suspect could be contrast related given that he had CT scans a couple days ago. We will continue current plan of care and recheck in the morning. - Subjective Interval history: Patient seen and examined. On examination, patient standing beside his bed conversing with his parents. Patient stating he recently received pain medication and states that his pain is currently controlled. He is upset that his glucose had risen overnight. He also states that he is extremely hungry. - Constitutional Vitals: Temp Pulse Resp BP Pulse Ox 98.5 F 78 16 116/74 95 06/13/17 11:16 06/13/17 11:16 06/13/17 11:16 06/13/17 11:16 06/13/17 11:16 General appearance: Present: cooperative, A&O X 3, pleasant, no acute distress, obese, answers questions appropriately - Head Head exam: Present: atraumatic, normocephalic - Eye Eye exam: Present: PERRL, conjuntiva pink, sclera anicteric Pupils: Present: PERRL - Neck Neck exam general surgery: Present: supple, trachea midline. Absent: lymphadenopathy - Respiratory Respiratory exam: Present: decreased breath sounds. Absent: accessory muscle use, rales, respiratory distress, rhonchi, wheezes - Cardiovascular Cardiovascular exam: Present: RRR, +S1, +S2. Absent: diastolic murmur, gallop, rubs, systolic murmur - GI/Abdominal GI/Abdominal exam: Present: distended, normal bowel sounds, soft, tenderness ( RUQ), no peritoneal signs - Extremities Exam Extremities exam: Present: warm, radial pulses palpable and symetrical. Absent : calf tenderness, cyanotic, pedal edema - Neurological Exam Neurological exam: Present: alert, CN II-XII intact, normal gait, oriented X3, no focal deficits, strengths equal and symetr throughout. Absent: pronater drift, facial droop, speech deficit - Skin Skin exam: Present: dry, intact, normal color, warm Internal Medicine: Result - Labs CBC & Chem 7: 06/11/17 08:53 06/13/17 15:56 Labs: BMP 06/13/17 09:21 Sodium 131 L Potassium 6.3 H D Chloride 98 Carbon Dioxide 23 BUN 32 H D Creatinine 1.99 H Glucose 400 H Calcium 9.8 - ABG Interpretation ABG results: PT/INR, D-dimer PT 10.8 Seconds (9.4-12.1) 06/09/17 02:26 Consult Discharge Plan - Plan Referrals: Leslie Malhotra, [employer]ECH AND [employer] TEACHER [Primary Care Provider] -
[2017-06-13] MEDS: (Fluticasone/Vilanterol [Breo Ellipta 100-25 Mcg Inh] IH SCH (11:55)
[2017-06-13] MEDS: Pregabalin 50 MG CAPSULE PO SCH ×2 (11:55→20:45)
[2017-06-13] MEDS: Lisinopril 20 MG TABLET PO SCH (11:55)
[2017-06-13] MEDS: *HR* HYDROcodone/Acet 5/325 mg TABLET PO PRN ×2 (11:55→18:26)
[2017-06-13] MEDS: Pantoprazole 40 MG VIAL IVP SCH (11:56)
[2017-06-13] MEDS: 0.9 % Sodium Chloride 1,000 ML IVC SCH ×2 (12:20→20:50)
[2017-06-13] MEDS: *HR* Morphine 2 MG/ML SYRINGE IVP PRN ×2 (15:13→20:50)
[2017-06-13 16:24] LABS: BUN/Creatinine Ratio 18 (6-26); Blood Urea Nitrogen 27 mg/dL (8-26); Calcium 10.1 mg/dL (8.6-10.8); Carbon Dioxide 26 mEq/L (19-29); Chloride 100 mEq/L (98-109); Glucose 216 mg/dL (70-99); Osmolality,Calculated 288 (280-300); Sodium 133 mEq/L (136-145); eGFR For African Americans > 60 (> 60); eGFR For Non-African Americans 52 (> 60)
[2017-06-13 16:29] LABS: Potassium 5.1 mEq/L (3.5-4.5)
--- NOTE | 2017-06-13 18:57 | General Surgery Progress Note ---
Date of Encounter: 06/13/17 Time of Encounter: 15:00 - Assessment and Plan (1) Biliary dyskinesia Current Visit: Yes Status: Acute will plan OR tomorrow once hyperkalemia resolved ok fulls today and npo at midnight (2) Hyperkalemia Current Visit: Yes Status: Acute medicine to manage, will delay surgery until K+ at appropriate level Subjective Patient reports: no new complaints, still having pain, pain is less Objective Vital Signs - Last 8 Hours Temp Pulse Resp BP Pulse Ox 06/13/17 18:47 98.7 F 72 15 138/90 96 06/13/17 15:25 97.8 F 74 16 131/81 94 06/13/17 11:16 98.5 F 78 16 116/74 95 Intake and Output 06/13/17 06/13/17 06/13/17 07:59 15:59 23:59 Intake Total 450 / 450 240 / 240 480 / 480 Output Total 1000 / 1000 Balance 450 / 450 240 / 240 -520 / -520 Intake: IV Fluids 450 / 450 D5% And 0.45% Nacl 1000 450 / 450 Ml Bag 1,000 ML @ 60 mls/ hr IVC .[id number] [facility] Rx#: [id number] Oral 240 / 240 480 / 480 Output: Urine 1000 / 1000 Other: Meal Lunch Dinner Percent of Meal Consumed 100% 100% Blood Glucose* [phone] - General physical appearance well developed, well nourished, no distress - Eyes PERRL, normal ocular movement - ENT normal mucosa, normocephalic - Neck Neck exam: trachea midline - Respiratory normal expansion, normal respiratory effort - Cardiovascular Cardiovascular exam: Present: RRR - Abdomen Abdomen: Present: bowel sounds present, tender ( RUQ but less than yesterday) - Integumentary no rash, no growths - Neurologic CN 2-12 grossly intact - Musculoskeletal normal posture - Psychiatric oriented to time, oriented to person, oriented to place, speech is normal, memory intact - Labs 06/11/17 08:53 06/13/17 15:56 BMP 06/13/17 06/13/17 Range/Units 15:56 09:21 Sodium 133 L 131 L (136-145) mEq/L Potassium 5.1 H D 6.3 H D (3.5-4.5) mEq/L Chloride 100 98 (98-109) mEq/L Carbon Dioxide 26 23 (19-29) mEq/L BUN 27 H 32 H D (8-26) mg/dL Creatinine 1.51 H 1.99 H (0.72-1.25) mg/dL Glucose 216 H 400 H (70-99) mg/dL Calcium 10.1 9.8 (8.6-10.8) mg/dL Vital Signs Temp Pulse Resp BP Pulse Ox 06/13/17 18:47 98.7 F 72 15 138/90 96 06/13/17 15:25 97.8 F 74 16 131/81 94 06/13/17 11:16 98.5 F 78 16 116/74 95 06/13/17 06:47 97.8 F 72 18 131/84 93 06/12/17 22:25 98.2 F 62 19 116/75 96 06/12/17 21:31 98 06/12/17 18:58 97.6 F 73 16 122/76 98 Intake and Output 06/13/17 06/13/17 06/13/17 07:59 15:59 23:59 Intake Total 450 / 450 240 / 240 480 / 480 Output Total 1000 / 1000 Balance 450 / 450 240 / 240 -520 / -520 Intake: IV Fluids 450 / 450 D5% And 0.45% Nacl 1000 450 / 450 Ml Bag 1,000 ML @ 60 mls/ hr IVC .[id number] [facility] Rx#: [id number] Oral 240 / 240 480 / 480 Output: Urine 1000 / 1000 Other: Meal Lunch Dinner Percent of Meal Consumed 100% 100% Blood Glucose* [phone] Consult Discharge Plan - Plan Referrals: Leslie Malhotra, CAFETERIA DIRECTOR [Primary Care Provider] -
[2017-06-14] MEDS: *HR* Heparin 5,000 UNIT/ML VIAL SQ SCH ×3 (04:02→17:00)
[2017-06-14] MEDS ORDERED: *HR* FentaNYL (PF) 100 MCG/2 ML VIAL ONE (07:33)
[2017-06-14] MEDS ORDERED: Lidocaine -MPF 2% 2 ML VIAL ONE (07:33)
[2017-06-14] MEDS ORDERED: *HR* Midazolam HCl 2 MG/2 ML VIAL ONE (07:33)
[2017-06-14] MEDS ORDERED: *HR* Propofol 200 MG/20 ML VIAL IVP ONE (07:33)
[2017-06-14] MEDS ORDERED: Lidocaine -MPF 4% 5 ML AMPUL ONE (07:34)
[2017-06-14 07:37] LABS: BUN/Creatinine Ratio 17 (6-26); Blood Urea Nitrogen 25 mg/dL (8-26); Calcium 9.9 mg/dL (8.6-10.8); Carbon Dioxide 30 mEq/L (19-29); Chloride 100 mEq/L (98-109); Glucose 162 mg/dL (70-99); Osmolality,Calculated 292 (280-300); Sodium 137 mEq/L (136-145); eGFR For African Americans > 60 (> 60); eGFR For Non-African Americans 53 (> 60)
--- NOTE | 2017-06-14 09:55 | Anesthesia Evaluation PreOp ---
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: Other (Anxiety/Depression, Chronic Pain/Diabetic Neuropathy maintained on Gabapentin, Lyrica) Other Medical History: Diabetes Type I (maintained on Insulin Pump) Anesthesia History: No Prior Anesthetic Complications, Past Anesthesia (Appyw/ Hernia Repair, R-CTR 11/2016, Ankle Scope/Tendon repair 01/2017, I &D R-ankle 2016) Alcohol Use: occasionally Drug use: none Medications and Allergies Lisinopril [Zestril] 40 mg PO DAILY 08/04/16 [History] Metoprolol XL (24 HR) Succ [Toprol XL] 100 mg PO DAILY 11/25/16 [History] Albuterol Sulfate [Proair Hfa] 2 puff IH Q4H PRN 01/28/17 [History] Montelukast [Singulair] 10 mg PO DAILY 01/28/17 [History] Fluticasone/Vilanterol [Breo Ellipta 100-25 Mcg INH] 1 puff IH DAILY 04/28/17 [ History] Ibuprofen [Motrin] 800 mg PO Q8HR PRN 04/28/17 [History] Subcutaneous Insulin Pump [T:Slim] 3 units MC Q1H PRN 04/28/17 [History] Atorvastatin [Lipitor] 20 mg PO HS 05/28/17 [History] Furosemide [Lasix] 20 mg PO BID #14 tablet 05/28/17 [Rx] Methocarbamol [Robaxin-750] 750 mg PO Q8H PRN 06/08/17 [History] Potassium Citrate [Urocit-K] 10 meq PO DAILY 06/08/17 [History] Pregabalin [Lyrica] 200 mg PO BID 06/08/17 [History] Allergies Penicillins [PCN] Allergy (Verified 06/08/17 19:16) raises blood sugar patient states advised as child not to take due to diabetes - Meds/Allergy Pre-op Review Medications Reviewed: Yes Allergies Reviewed: Yes Beta Blockers on Current Med List: Yes (Metoprolol) If Beta Blockers taken, Date/Time (Last Dose taken): 06/14/17 @ 1123 Anesthesia Results - Labs 06/11/17 08:53 06/14/17 07:08 Laboratory Results Impressions Abdomen/Pelvis CT 06/08/17 23:30 IMPRESSION: No acute findings. In particular there is no scan evidence for acute cholecystitis. D/ / Justin Avalos MD / Justin Avalos MD Interpreting Provider: Justin Avalos MD Chest CT 06/09/17 13:53 IMPRESSION: No findings to account for chest pain. There is scarring versus atelectasis in the right middle lobe and lingula. There is a calcified granuloma on the right D/ / Lucio Negrete MD / Lucio Negrete MD Interpreting Provider: Lucio Negrete MD Abdomen Ultrasound 06/09/17 14:00 IMPRESSION: Unremarkable right upper quadrant ultrasound. D/ / Shwetha Willis MD / Shwetha Willis MD Interpreting Provider: Shwetha Willis MD Liver Scan Nuclear Medicine 06/11/17 06:11 IMPRESSION: The common and cystic ducts are demonstrated as patent. Normal gallbladder ejection fraction, calculated as 68%. D/ / Lane Yu MD / Lane Yu MD Interpreting Provider: Lane Yu MD All Lab Results (24 Hours) 06/11/17 06/12/17 06/13/17 Range/Units 20:49 20:27 06:26 Sodium (136-145) mEq/L Potassium (3.5-4.5) mEq/L Chloride (98-109) mEq/L Carbon Dioxide (19-29) mEq/L BUN (8-26) mg/dL Creatinine (0.72-1.25) mg/dL Est GFR ( Amer) (> 60) Est GFR (Non-Af Amer) (> 60) BUN/Creatinine Ratio (6-26) Glucose (70-99) mg/dL POC Glucose 395 H 270 H 446 H* (58-89) Calculated Osmolality (280-300) Lactic Acid (0.5-2.2) mmol/L Calcium (8.6-10.8) mg/dL 06/13/17 06/13/17 06/13/17 Range/Units 07:55 09:21 10:15 Sodium 131 L (136-145) mEq/L Potassium 6.3 H D (3.5-4.5) mEq/L Chloride 98 (98-109) mEq/L Carbon Dioxide 23 (19-29) mEq/L BUN 32 H D (8-26) mg/dL Creatinine 1.99 H (0.72-1.25) mg/dL Est GFR ( Amer) 46 L (> 60) Est GFR (Non-Af Amer) 38 L (> 60) BUN/Creatinine Ratio 16 (6-26) Glucose 400 H (70-99) mg/dL POC Glucose 410 H* 308 H (58-89) Calculated Osmolality 296 (280-300) Lactic Acid (0.5-2.2) mmol/L Calcium 9.8 (8.6-10.8) mg/dL 06/13/17 06/13/17 06/13/17 Range/Units 15:56 15:56 17:02 Sodium 133 L (136-145) mEq/L Potassium 5.1 H D (3.5-4.5) mEq/L Chloride 100 (98-109) mEq/L Carbon Dioxide 26 (19-29) mEq/L BUN 27 H (8-26) mg/dL Creatinine 1.51 H (0.72-1.25) mg/dL Est GFR ( Amer) > 60 (> 60) Est GFR (Non-Af Amer) 52 L (> 60) BUN/Creatinine Ratio 18 (6-26) Glucose 216 H (70-99) mg/dL POC Glucose 155 H (58-89) Calculated Osmolality 288 (280-300) Lactic Acid 0.8 (0.5-2.2) mmol/L Calcium 10.1 (8.6-10.8) mg/dL 06/13/17 06/13/17 06/13/17 Range/Units 20:04 23:49 23:51 Sodium (136-145) mEq/L Potassium (3.5-4.5) mEq/L Chloride (98-109) mEq/L Carbon Dioxide (19-29) mEq/L BUN (8-26) mg/dL Creatinine (0.72-1.25) mg/dL Est GFR ( Amer) (> 60) Est GFR (Non-Af Amer) (> 60) BUN/Creatinine Ratio (6-26) Glucose (70-99) mg/dL POC Glucose 198 H 47 L* 63 (58-89) Calculated Osmolality (280-300) Lactic Acid (0.5-2.2) mmol/L Calcium (8.6-10.8) mg/dL 06/14/17 06/14/17 06/14/17 Range/Units 00:54 03:21 07:08 Sodium 137 (136-145) mEq/L Potassium 5.0 H (3.5-4.5) mEq/L Chloride 100 (98-109) mEq/L Carbon Dioxide 30 H (19-29) mEq/L BUN 25 (8-26) mg/dL Creatinine 1.49 H (0.72-1.25) mg/dL Est GFR ( Amer) > 60 (> 60) Est GFR (Non-Af Amer) 53 L (> 60) BUN/Creatinine Ratio 17 (6-26) Glucose 162 H (70-99) mg/dL POC Glucose 86 79 (58-89) Calculated Osmolality 292 (280-300) Lactic Acid (0.5-2.2) mmol/L Calcium 9.9 (8.6-10.8) mg/dL - Imaging EKG: image reviewed Anesthesia Exam Vital Signs Temp Pulse Resp BP Pulse Ox 06/14/17 07:05 97.6 F 68 16 119/79 95 06/14/17 03:17 97.6 F 68 15 140/87 99 07/29/17 23:45 97.6 F 65 15 136/71 92 06/13/17 18:47 98.7 F 72 15 138/90 96 06/13/17 15:25 97.8 F 74 16 131/81 94 06/13/17 11:16 98.5 F 78 16 116/74 95 Intake and Output 06/13/17 06/14/17 06/14/17 23:59 07:59 15:59 Intake Total 1716 / 1716 Output Total 2350 / 2350 Balance -634 / -634 Intake: IV Fluids 1000 / 1000 0.9 % Sodium Chloride 1, 1000 / 1000 000 ML @ 90 mls/hr IVC . [id number] [facility] Rx#:[id number] Oral 716 / 716 Output: Urine 2350 / 2350 Other: Meal Dinner NPO Percent of Meal Consumed 100% Weight 104.145 kg Blood Glucose* 63 132 Patient Weight 06/14/17 23:59 Weight 104.145 kg Weight: 5'6" NPO (# of Hours): 229# BMI = 37 - HEENT Pupil (Motor): Pupils equal, EOMI Mallampati: III (GLIDESCOPE strongly suggested. Pt w/short, thick neck. Large tongue) Teeth: Normal Oral Opening: Greater than 3 - BRANCH SERVICE REPRESENTATIVE LOC: Oriented BRANCH SERVICE REPRESENTATIVE Motor: Normal RUE, Normal LUE, Normal RLE, Normal LLE, Normal Face BRANCH SERVICE REPRESENTATIVE Sensory: Normal: RUE, LUE, RLE, LLE, Face - Cardiac Rhythm: Regular Murmur: None - Pulmonary Breath Sounds: bilateral Clear Respiratory Effort: Symmetrical Anesthesia Assess/Plan ASA Score: 3 (Obesity, HTN, Chol, DM, Electrolyte disturbance [HyperKalemia yesterday]) Modified [place] Scale for Level of Consciousness: Cooperative, oriented, and tranquil Anesthetic Plan: General Monitoring Plan: Standard Monitors Recovery Plan: PACU Anes Supervising Prov Stmt: Pt seen/evaluated, R&B Discussed, questions answered and consent obtained. Garrett Montaño MD
[2017-06-14] MEDS: (Fluticasone/Vilanterol [Breo Ellipta 100-25 Mcg Inh] IH SCH (10:15)
--- NOTE | 2017-06-14 10:33 | Internal Med Progress Note ---
Date of Encounter: 06/14/17 Time of Encounter: 09:45 - Assessment and plan (1) Difficult intravenous access Current Visit: Yes Status: Resolved (2) Hyperkalemia Current Visit: Yes Status: Acute Assessment and plan: Consistent with pseudohyperkalemia with his SAUL, elevated glucose readings yesterday, and the difficulty obtaining blood work from him leading to hemolysis and falsely elevated potassium. Repeated and is trending down. SAUL improved as well. Will continue his IVF. Awaiting surgery- lap serg per Dr Kulkarni. (3) RUQ abdominal pain Current Visit: Yes Status: Acute Assessment and plan: Plan is for cholescystectomy today. Patient's hyperkalemia and SAUL are stable. Patient remains with severe right upper quadrant abdominal pain requiring IV pain medication. Extensive workup including abdominal pelvic CT, chest CT, right upper quadrant ultrasound, HIDA scan, EGD, lab work all unremarkable for acute processes. 06/11/17 Unclear causation at this time. Patient with right upper quadrant abdominal pain that started 3 days prior to presentation. Exquisitely tender to palpation. Worsened with movement, deep breaths, coughing. Patient also stating that he developed a cough at the same time as his right upper quadrant abdominal pain so a chest CT was obtained and was unremarkable. Abdominal CT unremarkable for acute processes as well as plain films of his abdomen revealing constipation. RUQ ultrasound also unremarkable. Chest x-ray negative. Repeat LFTs, lipase, amylase, bilirubin levels all normal. Lipase mildly elevated initially, now normal. Okayed to start eating 2 nights ago however changed back to NPO today secondary to continued RUQ pain. Urinalysis negative. Gallbladder ultrasound, chest CT, as well as abdominal labs all normal. Suspect biliary colic vs schincter of oddi dysfunction. GI brought onboard who performed both a HIDA scan and both an EGD that were unremarkable other than mild duodenitis on the EGD. Acute cholecystitis, acute cholangitis, acute hepatitis less likely given normal labs. Could also be musculoskeletal etiology given the exquisite tenderness with light palpation. Lidocaine patch tried without success. We will observe him overnight and if he continues to have right upper quadrant abdominal pain by tomorrow, will consult surgery for possible cholecystectomy at their discretion. ITS Impressions Abdomen/Pelvis CT 06/08/17 23:30 IMPRESSION: No acute findings. In particular there is no scan evidence for acute cholecystitis. D/ / Justin Avalos MD / Justin Avalos MD Interpreting Provider: Justin Avalos MD Chest x-ray from [place] 06/08/17-4 impression: No acute process. Supine and upright views of the abdomen from [place] 06/08/17-5 impression : No evidence of bowel obstruction. Constipation. Chest CT 06/09/17 13:53 IMPRESSION: No findings to account for chest pain. There is scarring versus atelectasis in the right middle lobe and lingula. There is a calcified granuloma on the right D/ / Lucio Negrete MD / Lucio Negrete MD Interpreting Provider: Lucio Negrete MD Abdomen Ultrasound 06/09/17 14:00 IMPRESSION: Unremarkable right upper quadrant ultrasound. D/ / Shwetha Willis MD / Shwetha Willis MD Interpreting Provider: Shwetha Willis MD Liver Scan Nuclear Medicine 06/11/17 06:11 IMPRESSION: The common and cystic ducts are demonstrated as patent. Normal gallbladder ejection fraction, calculated as 68%. D/ / Lane Yu MD / Lane Yu MD Interpreting Provider: Lane Yu MD impression: Normal esophagus. Granular gastric mucosa. Biopsy. Duodenitis. A single duodenal all up. Biopsy. Recommendation: Await pathology results. If pain persists and surgical input for poss GB. (4) Foot ulcer Current Visit: Yes Status: Chronic Assessment and plan: Small, round, open area approximately 2 mm wide and approximately 2 mm deep area no active drainage on my assessment. Does not appear acutely infected. Wound is on board. Follows with Dr. munoz outpatient. No signs of cellulitis or acute processes. Patient has an appointment scheduled with Dr. munoz 06/15/17, no indication for inpatient consultation. Wound appears to be healing well- will push back his appointment with Dr Munoz if he is discharged today. If still here thursday, will place inpatient consult. (5) DVT prophylaxis Current Visit: Yes Status: Acute Assessment and plan: subcutaneous heparin (6) Nausea & vomiting Current Visit: Yes Status: Resolved Qualifiers: Vomiting type: cyclical vomiting Vomiting Intractability: non-intractable Qualified Code(s): G43.A0 - Cyclical vomiting, not intractable (7) Sleep apnea Current Visit: Yes Status: Chronic Assessment and plan: Endorses compliance, continue CPAP at bedtime Qualifiers: Sleep apnea type: obstructive Qualified Code(s): G47.33 - Obstructive sleep apnea (adult) (pediatric) (8) Diabetes Current Visit: Yes Status: Chronic Assessment and plan: CLARIFIED WITH PATIENT THAT HIS IS A TYPE 1 DIABETIC. Diagnosed at age 5. Has had an insulin pump for 6 months and is doing well. Relatively well controlled at home with an A1c of 8.0%. Currently controlled, will monitor Qualifiers: Diabetes mellitus type: type 1 Diabetes mellitus complication status: with skin complications Diabetes mellitus complication detail: with foot ulcer Qualified Code(s): E10.621 - Type 1 diabetes mellitus with foot ulcer; L97.509 - Non-pressure chronic ulcer of other part of unspecified foot with unspecified severity (9) HTN (hypertension) Current Visit: Yes Status: Chronic Assessment and plan: Controlled. We will continue to trend and adjust medications as indicated. Qualifiers: Hypertension type: essential hypertension Qualified Code(s): I10 - Essential (primary) hypertension (10) HLD (hyperlipidemia) Current Visit: Yes Status: Chronic Assessment and plan: Lipid panel mildly abnormal triglyceride 223, LDL normal, total cholesterol normal (11) Fluid overload Current Visit: Yes Status: Resolved Assessment and plan: Very slightly overloaded with slightly increased pedal edeam, but patient denies shortness of breath and his lungs are clear. On furosemide at home but currently holding. Patient stating 1+ pitting edema is his baseline- currently 2+. Tolerating room air. Acute on chronic diastolic heart failure. Will monitor closely given that he is receiving IVF for his SAUL. Echocardiogram impressions: LVEF 55%. Normal LV chamber size, wall thickness and function. Moderate left ventricular diastolic dysfunction. Normal right ventricular size and function. No significant valvular dysfunction. No pulmonary hypertension. (12) Diastolic heart failure Current Visit: Yes Status: Acute Assessment and plan: See prior note for fluid overload. (13) SAUL (acute kidney injury) Current Visit: Yes Status: Acute Assessment and plan: Improving. Suspect secondary to contrast. Continue IVF- surgery today. Holding furosemide and Lisinopril. Patient with diastolic heart failure and appears slightly fluid overloaded but without crackles or respiratory distress. - Subjective Interval history: Patient seen and examined. On examination, patient sitting upright on the edge of his bed. Patient stating his pain is currently controlled. He is upset over having been stuck several times today for blood work and peripheral IV access. He denies other concerns other than stating he is hungry. - Constitutional Vitals: Temp Pulse Resp BP Pulse Ox 97.6 F 68 16 119/79 95 06/14/17 07:05 06/14/17 07:05 06/14/17 07:05 06/14/17 07:05 06/14/17 07:05 General appearance: Present: cooperative, A&O X 3, pleasant, no acute distress, obese, answers questions appropriately - Head Head exam: Present: atraumatic, normocephalic - Eye Eye exam: Present: PERRL, conjuntiva pink, sclera anicteric Pupils: Present: PERRL - Neck Neck exam general surgery: Present: supple, trachea midline. Absent: lymphadenopathy - Respiratory Respiratory exam: Present: decreased breath sounds. Absent: accessory muscle use, rales, respiratory distress, rhonchi, wheezes - Cardiovascular Cardiovascular exam: Present: RRR, +S1, +S2. Absent: diastolic murmur, gallop, rubs, systolic murmur - GI/Abdominal GI/Abdominal exam: Present: distended, normal bowel sounds, soft, tenderness, no peritoneal signs - Extremities Exam Extremities exam: Present: warm, radial pulses palpable and symetrical. Absent : calf tenderness, cyanotic, pedal edema - Neurological Exam Neurological exam: Present: alert, CN II-XII intact, normal gait, oriented X3, no focal deficits, strengths equal and symetr throughout. Absent: pronater drift, facial droop, speech deficit - Skin Skin exam: Present: dry, intact, normal color, warm Internal Medicine: Result - Labs CBC & Chem 7: 06/11/17 08:53 06/14/17 07:08 Labs: BMP 06/13/17 06/13/17 06/14/17 09:21 15:56 07:08 Sodium 131 L 133 L 137 Potassium 6.3 H D 5.1 H D 5.0 H Chloride 98 100 100 Carbon Dioxide 23 26 30 H BUN 32 H D 27 H 25 Creatinine 1.99 H 1.51 H 1.49 H Glucose 400 H 216 H 162 H Calcium 9.8 10.1 9.9 - ABG Interpretation ABG results: PT/INR, D-dimer PT 10.8 Seconds (9.4-12.1) 06/09/17 02:26 Consult Discharge Plan - Plan Referrals: Leslie Malhotra, MECHANICAL INTERN [Primary Care Provider] -
[2017-06-14] MEDS: Pantoprazole 40 MG VIAL IVP SCH (11:13)
[2017-06-14] MEDS: *HR* HYDROcodone/Acet 5/325 mg TABLET PO PRN (11:23)
[2017-06-14] MEDS: Metoprolol XL (24 HR) Succ 50 MG TAB.ER.24H PO SCH (11:23)
[2017-06-14] MEDS ORDERED: Metoclopramide 10 MG/2 ML VIAL ONE (11:30)
[2017-06-14] MEDS ORDERED: Famotidine 20 MG/2 ML VIAL ONE (11:30)
[2017-06-14] MEDS ORDERED: Acetaminophen IV 1,000 MG/100 ML INFUS..BTL ONE (11:30)
[2017-06-14] MEDS ORDERED: Clindamycin 900 MG/50 ML 900 MG/50 ML IV.SOLN IVPB ONE (12:31)
[2017-06-14] MEDS ORDERED: *HR* Rocuronium Bromide 50 MG/5 ML VIAL ONE (12:53)
[2017-06-14] MEDS ORDERED: EPHEDrine 50 MG/ML VIAL ONE (13:01)
[2017-06-14] MEDS ORDERED: Ondansetron 4 MG/2 ML VIAL ONE (13:08)
[2017-06-14] MEDS ORDERED: *HR* Succinylcholine 200 MG/10 ML VIAL IVP ONE (13:20)
[2017-06-14] MEDS ORDERED: Neostigmine Methylsulfate 3 MG/3 ML SYRINGE ONE (13:23)
--- NOTE | 2017-06-14 13:43 | Operative Note ---
Date of procedure: 06/14/17 Pre-op diagnosis: biliary dyskinesia Post-op diagnosis: same (same) Procedure: laparoscopic cholecystectomy Complications: none immediate Anesthesia: GETA, local Local Anesthetics: 0.5% Sensorcaine HCL SubQ (cc) (20) Surgeon: Lavonne Kulkarni Estimated blood loss (cc): 5 Specimen: gallbladder Condition: stable Disposition: PACU Procedure in Detail: The patient was brought into the operating suite and placed supine on the operating table. Sign-in was performed and everyone was in agreement. Anesthesia was induced and patient was endotracheally intubated by anesthesia without incident and they also placed an OG tube. The abdomen was prepped and draped in the usual sterile fashion. A timeout was performed again everyone was in agreement. A stab incision in the left upper quadrant was made with an 11 blade. A Veress needle was placed in this and a water drop test confirmed placement and the abdomen was insufflated. The abdomen was entered with a 5 mm 0 degree laparoscope on a 5 mm XL trocar. The area under entry was visualized there was no bleeding and no apparent bowel injury. Patient thought he had a previous umbilical hernia repaired with mesh but no mesh was obvious at the umbilical site.. A supraumbilical incision was made through the skin into the subcutaneous tissue with an 11 blade. A 12 mm port was placed in the supraumbilical incision under direct visualization. A 5 mm subxiphoid port was placed under direct visualization after first incising the skin with an 11 blade. A right upper quadrant subcostal position midclavicular line 5 mm port was placed under direct visualization after first incising skin with 11 blade. The last 5 mm port was placed in the right upper quadrant subcostal position anterior axillary line after first incising the skin with an 11 blade. The patient was placed in steep reverse Trendelenburg left side down position. The dome of the gallbladder was grasped and retracted cephalad. The infundibulum was grasped and retracted laterally. Using the [place] we dissected out the cystic duct and cystic artery. Three 5 mm hemoclips were placed distally on the cystic duct one proximally and it was transected with curved scissors. The cystic artery was doubly clipped proximally, once distally and transected with curved scissors. The gallbladder was removed off the cystic plate with the Bovie. Any bleeding points were stopped with the Bovie. The gallbladder was placed in a laparoscopic Endo Catch bag and removed via the supraumbilical incision site. The inferior edge of the liver was bluntly retracted cephalad and the cystic plate was copiously irrigated with sterile saline. There was no bleeding or apparent bile leak from the cystic plate and the clips on the cystic artery and duct were intact. All irrigation was suctioned free from the abdomen. All insufflation was suctioned free from the abdomen and the ports removed. The abdominal wall at the supraumbilical incision site was closed with a 0 Vicryl [id number] stitch. 30 mL of 0.5% Marcaine was injected subcutaneously at the 4 port sites. The skin at the four 5 mm port sites were closed with 4-0 Monocryl interrupted subcuticular stitches. The skin at the supraumbilical incision site was closed with a 4-0 Monocryl running subcuticular stitch. Steri-Strips were applied to all wounds. The patient was awoken in the operating suite having tolerated the procedure well and were taken to PACU in stable condition after all lap and ensuring counts were correct at the end of the case.
[2017-06-14] MEDS ORDERED: Ipratropium/Albuterol Neb 3 ML ONE (13:55)
[2017-06-14] MEDS ORDERED: *HR* HYDROmorphone (PF) 1 MG/ML SYRINGE ONE (14:08)
[2017-06-14] MEDS: *HR* HYDROmorphone (PF) 1 MG/ML SYRINGE IVP PRN ×3 (14:10→14:24)
[2017-06-14] MEDS ORDERED: *HR* Labetalol 20 MG/4 ML SYRINGE IVP PRN (14:17)
[2017-06-14] MEDS ORDERED: *HR* Promethazine 25 MG/ML VIAL IVP PRN (14:17)
--- NOTE | 2017-06-14 14:23 | Anesthesia Evaluation Post Op ---
Date of Encounter: 06/14/17 - Vital Signs Vital Signs: Vital Signs/O2 Sat/Glucose, Most Current Temp Pulse Resp BP Pulse Ox 06/14/17 14:04 35 129/89 100 06/14/17 11:57 64 16 129/89 95 06/14/17 11:23 97.5 F L 73 16 127/79 96 06/14/17 10:41 95 - Lungs Lungs: Clear Ascult./Percussion, Treatment Ordered - Airway Airway: Non-obstructed - Cardiovascular Regular Rate - Mental Status Mental Status: Alert & Oriented, Answers Appropriately - Pain Pain Scale used: Numeric (1 - 10) - Nausea Vomiting Nausea Vomiting: Not Present - Hydration Hydration: Ice chips, Has not voided - Discharge PostOp Status: Transfer Patient to floor Anes Supervising Prov Stmt: Pt seen/evaluated, VSS and pt has met criteria for discharge to floor. - MD Danyel
[2017-06-14] MEDS: Pregabalin 50 MG CAPSULE PO SCH ×2 (15:34→22:09)
[2017-06-14] MEDS: *HR* Morphine 2 MG/ML SYRINGE IVP PRN ×2 (15:45→20:37)
[2017-06-14] MEDS ORDERED: Ipratropium/Albuterol Neb 3 ML IH PRN (16:09)
[2017-06-14] MEDS ORDERED: Ondansetron 4 MG/2 ML VIAL IVP PRN (16:09)
[2017-06-14] MEDS ORDERED: Dextrose Gel 15 GM PO PRN ×2 (16:09)
[2017-06-14] MEDS ORDERED: *HR* Dextrose 50 % in Water (Syg) 50 ML SYRINGE IVP PRN (16:09)
[2017-06-14] MEDS ORDERED: Naloxone 0.4 MG/ML INJ IVP PRN (16:09)
[2017-06-14] MEDS ORDERED: *HR* OxyCODONE/APAP 5/325 TABLET PO PRN (16:09)
[2017-06-14] MEDS ORDERED: Subcutaneous Insulin Pump MC PRN (16:09)
[2017-06-14] MEDS ORDERED: Methocarbamol 750 MG TABLET PO PRN (16:09)
[2017-06-14] MEDS ORDERED: D5% in Water 1,000 ML IVC PRN (16:09)
[2017-06-14] MEDS ORDERED: Acetaminophen 325 MG TABLET PO PRN (16:09)
[2017-06-14] MEDS: Albuterol 2.5 MG/3 ML NEBULIZER IH SCH ×3 (16:27→21:43)
[2017-06-14] MEDS ORDERED: Furosemide 20 MG TABLET PO SCH (17:00)
[2017-06-14] MEDS: 0.9 % Sodium Chloride 1,000 ML IVC SCH (20:35)
[2017-06-15] MEDS: *HR* Morphine 2 MG/ML SYRINGE IVP PRN ×2 (02:23→05:28)
[2017-06-15] MEDS: Albuterol 2.5 MG/3 ML NEBULIZER IH SCH ×2 (04:06→10:36)
[2017-06-15 04:57] LABS: Basophils # 0.1 K/mcL (0.0-0.2); Basophils % 1.2 %; Eosinophils # 0.3 K/mcL (0.0-0.6); Eosinophils % 4.5 %; Hematocrit 46.2 % (37.5-50.1); Hemoglobin 15.7 g/dL (12.9-16.9); Immature Granulocytes % 0.5 % (0-4); Lymphocytes # 1.3 K/mcL (0.6-4.6); Mean Corpuscular Hemoglobin 30.8 pg (28.0-33.3); Mean Corpuscular Volume 90.6 fL (83.0-100.0); Mean Platelet Volume 9.1 fL (9.4-12.4); Monocytes # 0.8 K/mcL (0.0-1.3); Monocytes % 13.7 %; Neutrophils # 3.6 K/mcL (1.6-8.9); Platelet Count 256 K/mcL (140-400); Red Cell Distribution Width 11.9 % (11.5-14.5); Segmented Neutrophils % 59.1 %
[2017-06-15] MEDS: *HR* Heparin 5,000 UNIT/ML VIAL SQ SCH (05:19)
[2017-06-15] MEDS ORDERED: Nicotine 7 MG PATCH.TD24 TD SCH (05:46)
[2017-06-15 07:53] VITALS: BP 148/84
[2017-06-15 07:56] LABS: BUN/Creatinine Ratio 12 (6-26); Blood Urea Nitrogen 16 mg/dL (8-26); Calcium 9.8 mg/dL (8.6-10.8); Carbon Dioxide 29 mEq/L (19-29); Chloride 100 mEq/L (98-109); Glucose 114 mg/dL (70-99); Osmolality,Calculated 290 (280-300); Potassium 4.3 mEq/L (3.5-4.5); Sodium 139 mEq/L (136-145); eGFR For African Americans > 60 (> 60); eGFR For Non-African Americans 58 (> 60)
[2017-06-15] MEDS: Pregabalin 50 MG CAPSULE PO SCH (08:20)
[2017-06-15] MEDS: 0.9 % Sodium Chloride 1,000 ML IVC SCH (08:21)
[2017-06-15] MEDS ORDERED: Metoprolol XL (24 HR) Succ 50 MG TAB.ER.24H PO SCH (09:00)
[2017-06-15] MEDS ORDERED: Lisinopril 20 MG TABLET PO SCH (09:00)
[2017-06-15] MEDS ORDERED: Pantoprazole 40 MG VIAL IVP SCH (09:00)
--- NOTE | 2017-06-15 10:57 | Discharge Summary ---
Date of Encounter: 06/15/17 Time of Encounter: 09:45 - Discharge Diagnosis (1) Biliary dyskinesia Priority: Primary Status: Acute Comments: s/p laparoscopic cholecystectomy per Dr. Kulkarni (2) Biliary colic Priority: Primary Status: Suspected (3) Difficult intravenous access Priority: Primary Status: Resolved (4) Hyperkalemia Priority: Primary Status: Resolved (5) RUQ abdominal pain Priority: Primary Status: Resolved (6) Foot ulcer Priority: Secondary Status: Chronic Comments: followup outpatient with Dr Espinoza. No acute infection. Area healing well. 2mm wide by 2mm deep. No discharge. (7) DVT prophylaxis Priority: Primary Status: Acute Comments: Subcutaneous heparin while admitted (8) Nausea & vomiting Priority: Primary Status: Resolved Qualifiers: Vomiting type: cyclical vomiting Vomiting Intractability: non-intractable Qualified Code(s): G43.A0 - Cyclical vomiting, not intractable (9) Sleep apnea Priority: Secondary Status: Chronic Comments: compliant with CPAP Qualifiers: Sleep apnea type: obstructive Qualified Code(s): G47.33 - Obstructive sleep apnea (adult) (pediatric) (10) Diabetes Priority: Secondary Status: Chronic Comments: CLARIFIED WITH PATIENT THAT HIS IS A TYPE 1 DIABETIC. Diagnosed at age 5. Has had an insulin pump for 6 months and is doing well. Relatively well controlled at home with an A1c of 8.0%. Followup outpatient. Qualifiers: Diabetes mellitus type: type 1 Diabetes mellitus complication status: with skin complications Diabetes mellitus complication detail: with foot ulcer Qualified Code(s): E10.621 - Type 1 diabetes mellitus with foot ulcer; L97.509 - Non-pressure chronic ulcer of other part of unspecified foot with unspecified severity (11) HTN (hypertension) Priority: Secondary Status: Chronic Comments: Controlled, follow-up outpatient Qualifiers: Hypertension type: essential hypertension Qualified Code(s): I10 - Essential (primary) hypertension (12) HLD (hyperlipidemia) Priority: Secondary Status: Chronic Comments: Lipid panel mildly abnormal triglyceride 223, LDL normal, total cholesterol normal. Continue home statin and low-cholesterol diet (13) Fluid overload Priority: Primary Status: Resolved (14) Diastolic heart failure Priority: Primary Status: Acute Comments: Euvolemic and consistent with his baseline on day of discharge. On furosemide at home; will continue. Patient stating 1+ pitting edema is his baseline. Tolerated room air. Acute on chronic diastolic heart failure. (15) SAUL (acute kidney injury) Priority: Primary Status: Resolved Comments: essentially resolved prior to discharge - Discharge Medications Prescriptions: OxyCODONE/APAP 5/325 [Percocet 5/325 MG] 1 each PO Q4HR PRN #30 tab PRN Reason: Pain Docusate [Colace] 100 mg PO BID #30 capsule Home Medications: Lisinopril [Zestril] 40 mg PO DAILY 08/04/16 [History] Metoprolol XL (24 HR) Succ [Toprol Xl] 100 mg PO DAILY 11/25/16 [History] Albuterol Sulfate [Proair Hfa] 2 puff IH Q4H PRN 01/28/17 [History] Montelukast [Singulair] 10 mg PO DAILY 01/28/17 [History] Fluticasone/Vilanterol [Breo Ellipta 100-25 Mcg INH] 1 puff IH DAILY 04/28/17 [ History] Ibuprofen [Motrin] 800 mg PO Q8HR PRN 04/28/17 [History] Subcutaneous Insulin Pump [T:Slim] 3 units MC Q1H PRN 04/28/17 [History] Atorvastatin [Lipitor] 20 mg PO HS 05/28/17 [History] Furosemide [Lasix] 20 mg PO BID #14 tablet 05/28/17 [Rx] Methocarbamol [Robaxin-750] 750 mg PO Q8H PRN 06/08/17 [History] Potassium Citrate [Urocit-K] 10 meq PO DAILY 06/08/17 [History] Pregabalin [Lyrica] 200 mg PO BID 06/08/17 [History] Docusate [Colace] 100 mg PO BID #30 capsule 06/15/17 [Rx] OxyCODONE/APAP 5/325 [Percocet 5/325 MG] 1 each PO Q4HR PRN #30 tab 06/15/17 [Rx ] Allergies/Adverse Reactions: Allergies Penicillins [PCN] Allergy (Verified 06/08/17 19:16) raises blood sugar patient states advised as child not to take due to diabetes Date of admission: 06/11/17 16:59 Primary care physician: Leslie Malhotra CNP Consults: 06/08/17 21:07 Consult to Wound Care [CONS] Routine Reason for Consult: Patient has wound to right ankle that is followed by Dr. Espinoza. Wound has mild discharge at this time. Call Completed: No 06/10/17 10:25 Consult to Gastroenterology [CONS] Routine Consulting Provider: Gastroenterology Bren Reason for Consult: severe RUQ pain. labs and imaging normal. still with severe bouts of pain. please eval and advise. Time Notified: 10:26 Call Completed: Yes 06/12/17 08:29 Consult to Surgery [CONS] Routine Consulting Provider: Lavonne Kulkarni Reason for Consult: severe RUQ pain. workup including abd ct, GB u/s, HIDA, EGD all unremarkable. severe pain persists. please eval and advise. Time Notified: 08: Call Completed: Yes Discharging clinician: Radha Quach Anticipated date of discharge: 06/15/17 - Patient Status Disposition: Home, Self-Care Condition: Good Functional capacity at discharge: independent ambulation Overall status at discharge: patient is progressing back to baseline - Discharge Instructions Instructions: Low Fat Diet (DC), Laparoscopic Cholecystectomy (DC) Follow Up With: Nuno Espinoza DPM [Partnered Physician] - 06/22/17 10:15 am Leslie Malhotra CNP [Primary Care Provider] - 06/16/17 10:15 am Catherine Robbins CNP [Advanced Practice Nurse] - 06/29/17 10:15 am Additional Instructions: Follow-up appointments: Follow-up with primary care provider, podiatry, and surgery as scheduled If there is not an appointment listed below, please call your physician and schedule a follow-up appointment. If you have congestive heart failure and your symptoms return, make an appointment with your physician. Medication List: Carry an up to date list of medications you are taking at all time. We have given you an updated medication list including any new medications that you have been prescribed. Please provide that list to your primary provider Symptoms: If your condition changes or you experience any of the following symptoms, notify your physician immediately: Unusual or worsening pain, fever, persistent nausea and vomiting, bleeding, increase in swelling (especially in your legs), sudden weight gain, extreme dizziness, chest pain, increased drainage or redness from a wound or incision. Go to the emergency department if you experience a problem with breathing. Weights: If you have a history of swelling or shortness of breath, weigh yourself daily and notify your physician if you have a weight gain of two or more pounds in one day or 5 or more pounds in a week. If you experience any of the warning signs for stroke: Sudden numbness or weakness of the face, arm or leg; especially on one side of the body, sudden confusion, trouble speaking or understanding, sudden trouble seeing in one or both eyes, sudden trouble walking, dizziness, loss of balance or coordination, sudden sever headache with no cause; Call 911 or go to the emergency room. Stroke is a medical emergency. Some risk factors for stroke: Age, cigarette smoking, diabetes, excessive alcohol consumption, family history , high blood pressure, overweight, physical inactivity, prior stroke, heart attack, diagnosis of carotid artery stenosis or other artery disease. If you smoke, STOP: Smoking or tobacco use significantly increases your risk of heart and lung disease. Your chance of disease greatly increases if you continue to smoke. For more information, call the [place] tobacco quit line for smoking cessation QUIT-NOW ( ) - Diet and Activity Activity: increase activity as tolerated, return to work once cleared by your PCP/specialist Diet: diabetic diet, low fat, low cholesterol, low salt diet, other (Fluid restriction 2 L per day) Hospital course: Mr. Kilpatrick is a 36 year old male with past medical history of asthma, type 1 diabetes with insulin pump, hyperlipidemia, hypertension, anxiety/depression, appendectomy, tobacco abuse. Patient presented to the emergency department chief complaint of abdominal pain 2 weeks that had become more centralized in his right upper quadrant and also radiated to his flank. Patient stating the pain was worse with positional changes, coughing, sneezing, bending over, or lying flat. Patient also stated that he was coughing more and he stated that the sputum was brown/black. He states that he smokes one or 2 cigarettes per day. He also endorses nausea, vomiting, chills, and fever. Pain states that the pain is so intense that it takes his breath away. He denied chest pain, dyspnea, lightheadedness or dizziness, headache, vision changes, syncope. Workup in the emergency department unremarkable. Abdominal pelvic CT negative. Chest x-ray negative. Abdominal x-ray negative other than for constipation. Patient was admitted to the hospitalist service for further evaluation and management. Chest CT was obtained which was unremarkable for acute processes. Patient continued to have severe right upper quadrant abdominal pain despite having negative imaging as well as normal LFTs, amylase, bilirubin. His lipase was mildly elevated but became normal on the first day of admission. Urinalysis negative. Gallbladder ultrasound obtained which was unremarkable. The patient continued to have severe right upper quadrant abdominal pain requiring IV pain medication. GI was brought onboard who performed a HIDA scan and an EGD that were unremarkable other than mild white nidus on the EGD. At this point, the patient's pain continued to be severe so surgery was brought onboard for consideration of a cholecystectomy for suspected biliary dyskinesia/ biliary colic. Patient experienced mild acute kidney injury with mild hyperkalemia while admitted that resolved with IV fluids. His MICKEY inhibitor and his furosemide were both held and the patient became mildly fluid overloaded but this resolved and he never complained of shortness of breath above his norm. Echocardiogram was obtained which revealed ejection fraction of 55% with moderate diastolic dysfunction. Was at his baseline prior to discharge as he states that he always has 1+ pitting edema. Surgery then performed a laparoscopic cholecystectomy without complications. Of note, patient did have urinary retention after surgery so Schulz catheter was placed. Schulz catheter removed and the patient voided on his own prior to discharge. Of note, patient had a wound on his lateral ankle that did not have any signs of infection. Wound was brought onboard and recommended mesalt and he has been instructed to followup outpatient. He was able to tolerate a regular diet prior to discharge and his pain was controlled. He was discharged home in stable condition close outpatient follow-up recommended. ITS Impressions Abdomen/Pelvis CT 06/08/17 23:30 IMPRESSION: No acute findings. In particular there is no scan evidence for acute cholecystitis. D/ / Justin Avalos MD / Justin Avalos MD Interpreting Provider: Justin Avalos MD Chest x-ray from [place] 06/08/17-1053 impression: No acute process. Supine and upright views of the abdomen from [place] 06/08/17-5 impression : No evidence of bowel obstruction. Constipation. Chest CT 06/09/17 13:53 IMPRESSION: No findings to account for chest pain. There is scarring versus atelectasis in the right middle lobe and lingula. There is a calcified granuloma on the right D/ / Lucio Negrete MD / Lucio Negrete MD Interpreting Provider: Lucio Negrete MD Abdomen Ultrasound 06/09/17 14:00 IMPRESSION: Unremarkable right upper quadrant ultrasound. D/ / Shwetha Willis MD / Shwetha Willis MD Interpreting Provider: Shwetha Willis MD Liver Scan Nuclear Medicine 06/11/17 06:11 IMPRESSION: The common and cystic ducts are demonstrated as patent. Normal gallbladder ejection fraction, calculated as 68%. D/ / Lane Yu MD / Lane Yu MD Interpreting Provider: Lane Yu MD impression: Normal esophagus. Granular gastric mucosa. Biopsy. Duodenitis. A single duodenal all up. Biopsy. Recommendation: Await pathology results. If pain persists and surgical input for poss GB. Echocardiogram impressions: LVEF 55%. Normal LV chamber size, wall thickness and function. Moderate left ventricular diastolic dysfunction. Normal right ventricular size and function. No significant valvular dysfunction. No pulmonary hypertension. - Time Spent with Patient Total time spent providing and/or coordinating discharge services: - Constitutional Vitals: Temp Pulse Resp BP Pulse Ox 98.0 F 83 18 148/84 96 06/15/17 07:47 06/15/17 07:47 06/15/17 07:47 06/15/17 07:47 06/15/17 07:47 General appearance: Present: cooperative, A&O X 3, pleasant, no acute distress, obese, answers questions appropriately - Head Head exam: Present: atraumatic, normocephalic - Eye Eye exam: Present: PERRL, conjuntiva pink, sclera anicteric Pupils: Present: PERRL - Neck Neck exam general surgery: Present: supple, trachea midline. Absent: lymphadenopathy - Respiratory Respiratory exam: Present: CTAB. Absent: accessory muscle use, rales, respiratory distress, rhonchi, wheezes - Cardiovascular Cardiovascular exam: Present: RRR, +S1, +S2. Absent: diastolic murmur, gallop, rubs, systolic murmur - GI/Abdominal GI/Abdominal exam: Present: distended, normal bowel sounds, soft, tenderness, no peritoneal signs Additional comments: laparascopic wounds intact - Extremities Exam Extremities exam: Present: warm, radial pulses palpable and symetrical. Absent : calf tenderness, cyanotic, pedal edema - Neurological Exam Neurological exam: Present: alert, CN II-XII intact, normal gait, oriented X3, no focal deficits, strengths equal and symetr throughout. Absent: pronater drift, facial droop, speech deficit - Skin Skin exam: Present: dry, intact, normal color, warm - VTE Documentation of Mechanical Device: Intermittent pneumatic compression device
== END 2017-06-15 13:40 | disposition home or self-care (01) | DRG 263 ==
LOC: 3BNU → SUATTDRO 13:39
PROVIDERS: ADMIT Internal Medicine; ATTEND Nurse Practitioner Family

== ENCOUNTER 2017-10-26 07:45 | Observation (INO) ==
[2017-10-26] MEDS ORDERED: Heparin 1,000 UNIT, 0.9 % Sodium Chloride 500 ML INARTERIAL ONE (10:00)
[2017-10-26] MEDS ORDERED: *HR* Heparin 10,000 UNIT/10 ML VIAL ONE (10:05)
[2017-10-26] MEDS ORDERED: 0.9 % Sodium Chloride 1,000 ML ONE (10:05)
[2017-10-26] MEDS ORDERED: Nitroglycerin 1,000 MCG/10 ML VIAL IV ONE (10:06)
[2017-10-26] MEDS ORDERED: *HR* FentaNYL (PF) 100 MCG/2 ML VIAL ONE (10:17)
[2017-10-26] MEDS ORDERED: *HR* Midazolam HCl 2 MG/2 ML VIAL ONE (10:17)
--- NOTE | 2017-10-26 10:18 | Pre-Sedation Evaluation ---
Pre-sedation evaluation - Pre-sedation checklist Date of procedure: 10/26/17 Procedure: left heart cath Recent Vitals: Last Vital Signs Temp 97.5 F L 10/26/17 08:26 Pulse 106 10/26/17 08:26 Resp 19 10/26/17 08:26 BP 132/85 10/26/17 08:26 Pulse Ox 94 10/26/17 08:26 H&P (including ROS) documented in medical record: Yes Previous reaction to sedatives/anesthetics: No Dietary Status: NPO after Midnight Dentition: No loose teeth or bridges ASA Classification *see protocol: CLASS II-Mild systemic disease Plan of Care: Pt appropriate candidate for procedure/moderate/conscious sedation
[2017-10-26] MEDS ORDERED: Tirofiban 12.5 MG/250ML 12.5 MG/250 ML BAG ONE (10:40)
[2017-10-26] MEDS ORDERED: *HR* Ticagrelor 90 MG TABLET ONE (11:38)
[2017-10-26] MEDS: 0.9 % Sodium Chloride 1,000 ML IVC SCH (12:00)
--- NOTE | 2017-10-26 12:01 | Invasive Diagnostic Lab Proc ---
Name: Dennis Kilpatrick Date of Study: 10/26/2017 Date: 1980 Ht: 67.0in Medical Record#: [id number] Age: 37 Wt: 250.45lb Gender: Male BSA: 2.23 Order #: [id number] BMI: 39.22 Physicians Procedure Physician: Brandon Waller MD Referring MD: Referring MD: Staff Name Position Time In Anyi Crooks RN Pre-Op Nurse 08:00 AM Yohan Forbes RN Pre-Op Nurse 08:00 AM Marjan Armenta RN Multimedia Editor 10:23 AM Chaparrita Greene RT (R) Monitor 10:23 AM Terry Lorenz RT (R) Scrub 10:23 AM Indications Indication Unstable Angina Procedures Performed Procedure CORONARY ARTERY ANGIO S&I PRQ CARD SAMINA STENT W/ANGIO 1 VSL Pre-Procedure Checklist Informed consent is complete signed and on chart. H&P is on chart. ID band is on and ID verified with patient. Patient NPO for procedure The procedure was described for the patient and questions were answered. Blood Pressure: 132/85 ECG is on chart. Rhythm: NSR Plan of Care Patient will tolerate the procedure without complications. Adequate level of comfort will be maintained. Hemodynamics will remain stable Patient will recover from procedure without complications. Respiratory function will be maintained. Cardiac rhythm will remain stable. Patient temperature will be maintained. Patient and/or family have verbalized understanding of the procedure. Patient Education Chief Complaint/Reason for Test: Cardiac Cath Developmental Category: Adult (18-64 years) Developmentally Appropriate for Age: Yes Learning Barriers: None Education Needs: Procedure Education Method: Verbal Information Taught: Cardiac Cath Educational Evaluation: Able to repeat information Intravenous Access Time IV Size Location DC'd Fluid/Drip Rate Units RN 09:05 AM 20g 1 1/4" Patent On Arrival Lt Hand 0.9NaCl 25 ml/hr Allergies PCN Penicillins PCN (penicillin) Vital Signs Time BP (mmHg) HR (bpm) O2 Sat. RR (bpm) LOC 09:10 AM 132 / 85 106 94 % 16 5 = Fully awake and oriented or at pre-proc level 10:25 AM / % 4 = Oriented but drowsy 10:25 AM / % 4 = Oriented but drowsy 10:56 AM / % 4 = Oriented but drowsy 11:11 AM / % 4 = Oriented but drowsy 11:26 AM / % 4 = Oriented but drowsy 10:21 AM 157 / 93 88 98 % 17 10:26 AM 144 / 83 88 97 % 21 10:31 AM 144 / 93 89 99 % 23 10:36 AM 140 / 90 89 96 % 21 10:41 AM 138 / 88 91 96 % 22 10:46 AM 149 / 84 91 96 % 22 10:51 AM 149 / 88 88 97 % 20 10:56 AM 156 / 95 89 96 % 27 11:02 AM 151 / 103 90 96 % 18 11:06 AM 160 / 98 91 95 % 21 11:11 AM 166 / 93 88 96 % 20 11:16 AM 143 / 96 86 95 % 16 11:21 AM 152 / 91 88 95 % 22 11:26 AM 155 / 101 87 97 % 17 11:31 AM 133 / 77 91 99 % 21 Procedural Medications Time Medication Dose Units Method Given By 10:22 AM Oxygen 2 L/min nasal cannula Marjan Armenta RN 10:22 AM Versed 0.5 mg Intravenous Marjan Armenta RN 10:22 AM Fentanyl 25 mcg Intravenous Marjan Armenta RN 10:28 AM Lidocaine 2% 10 ml Subcutaneous Brandon Waller MD 10:30 AM Versed 0.5 mg Intravenous Marjan Armenta RN 10:30 AM Fentanyl 25 mcg Intravenous Marjan Armenta RN 10:39 AM Heparin 5000 units Intravenous Marjan Armenta RN 10:40 AM Aggrastat Bolus: 58 ml Intravenous Marjan Armenta RN 10:40 AM Aggrastat 12.5mg/250ml 21 ml Intravenous Marjan Armenta RN 10:59 AM Fentanyl 50 mcg Intravenous Marjan Armenta RN 11:02 AM 0.9NaCl 100 ml/hr Intravenous Marjan Armenta RN 11:31 AM Brilinta 180 mg Orally Marjan Armenta RN Ricardo Score Preprocedure Postprocedure Activity 2- Moves 4 extremities sustained head lift Activity 2- Moves 4 extremities sustained head lift Circulation 2- SBP +/= 20 points of pre-anesthetic level Circulation 2- SBP +/= 20 points of pre-anesthetic level Consciousness 2- Awake and alert oriented x 3 Consciousness 2- Awake and alert oriented x 3 O2 Saturation 2- Able to maintain O2 satruation of 92% on room air O2 Saturation 2- Able to maintain O2 satruation of 92% on room air Respiratory 2- Able to deep breathe and cough well Respiratory 2- Able to deep breathe and cough well Total Score 10 Total Score 10 Contrast Agent: Isovue Diagnostic Contrast: 191 ml Total Contrast: 191 ml Fluoro Dose: 2555 mGy Activated Clotting Time Time Seconds to Clot 11:34 AM 176 Procedure Log Time Note Enter By 10:14 AM CathStat 10:20 AM Vitals capture started with the following parameters, Patient=Adult, Interval=5 min, Initial Idqfuzzw=351 mmHg, Deflation Rate=5 mmHg, Cuff placed on Right Arm 10:21 AM HR=88 bpm, DURJ=819/93 mmhg, SpO2=98.0 %, Resp=17 B/min, Comment=NSR 10:22 AM [facility] 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 [email or web address] 10:22 AM Hair removed from procedure site in procedure lab using clippers. Bilateral groin prepped with Chloraprep by Chaparrita Greene (R), safety strap applied then patient was draped. Skin intact. [email or web address] 10:22 AM Physicatif paged/called :. [email or web address] 10:22 AM Physicatif responded and notified patient is ready 10:22 [email or web address] 10:22 AM Physician arrived 10: [email or web address] 10:22 AM [email or web address] AM Sign in performed according to hospital policy. [email or web address] 10:22 AM Procedure start 10: [email or web address] 10: AM Time: : Oxygen on at 2 L/min per nasal cannula by Marjan Armenta RN [email or web address] 10: AM Time: : Versed 0.5 mg Intravenous Given by Marjan Armenta RN [email or web address] 10: AM Time: : Fentanyl 25 mcg Intravenous Given by Marjan Armenta RN [email or web address] 10: AM Marjan Armenta RN Position: Multimedia Editor Time in: : [email or web address] 10:23 AM Ramona, Chaparrita RT (R) Position: Monitor Time in: 10:23 [email or web address] 10:23 AM Terry Lorenz RT (R) Position: Scrub Time in: 10:23 [email or web address] 10:24 AM Recorded ECG: HR=89 Condition=Condition 1 10:25 AM Case Delayed Previous case ran long [email or web address] 10:25 AM Time: 10:25 Patient comfortable and pain free: Yes [email or web address] 10:25 AM Time: 10:25LOC: 4 = Oriented but drowsy [email or web address] 10: AM HR=88 bpm, ZKKO=822/83 mmhg, SpO2=97.0 %, Resp=21 B/min, Comment=NSR 10: AM Pressure channel 1 zero failed. 10: AM Pressure channel 1 zeroed. 10: AM Time out performed according to hospital policy [email or web address] 10:29 AM Time: 10:28 10 ml Lidocaine 2% to right groin Subcutaneous Given by Brandon Waller MD [email or web address] 10:30 AM Micro-Introducer Kit utilized for sheath placement [email or web address] 10:30 AM Time: 10:30 Versed 0.5 mg Intravenous Given by Marjan Armenta RN [email or web address] 10:30 AM Time: 10:30 Fentanyl 25 mcg Intravenous Given by Marjan Armenta RN [email or web address] 10:31 AM HR=89 bpm, CRFS=915/93 mmhg, SpO2=99.0 %, Resp=23 B/min, Comment=NSR 10:31 AM Bolus rt fem angio 3 mls contrast. [email or web address] 10:32 AM Access obtained by percutaneous puncture. 6Fr 10cm Terumo Carroll sheath placed in right Femoral artery. [id number] [email or web address] 10:32 AM 0.035 145cm Navilyst 3mmJ wire [id number] [email or web address] 10:33 AM Pressure channel 1 zeroed. 10:33 AM 5Fr FL 4 [email or web address] LCA angiography performed in multiple views. [email or web address] 10:34 AM Recorded Pressure: Ao, HR=93, Condition=Condition 1 (Aorta) Ao 133/110/121 10:35 AM Lesion found in Proximal LAD. Pre Stenosis: 80 Pre JORGE Flow: [email or web address] 10:35 AM Lesion found in Mid LAD. Pre Stenosis: 70 Pre JORGE Flow: [email or web address] 10:35 AM Catheter removed [email or web address] 10:35 AM 5Fr FR 4 catheter inserted over the wire DNC [email or web address] 10:36 AM HR=89 bpm, QHJF=167/90 mmhg, SpO2=96.0 %, Resp=21 B/min, Comment=NSR 10:36 AM RCA angiography performed in multiple views. [email or web address] 10:37 AM Recorded Pressure: Ao, HR=94, Condition=Condition 1 (Aorta) Ao 137/115/126 10:39 AM Catheter removed [email or web address] 10:39 AM Time: 10:39 Heparin 5000 units Intravenous Given by Marjan Armenta RN [email or web address] 10:39 AM 6Fr XB LAD 3.5 [place] Bright-Tip guide catheter was used to cannulate the PCI vessel successfully. reused? No [email or web address] 10:40 AM .014 Samurai 190cm guide wire across target lesion- successful. reused? No [email or web address] 10:40 AM Time: 10:40 Aggrastat Bolus: 58 ml Intravenous Given by Marjan Armenta RN Marmolejo pump [email or web address] 10:40 AM Time: 10:25 Patient comfortable and pain free: Yes [email or web address] 10:40 AM Time: 10:40 Aggrastat 12.5mg/250ml 21 ml Intravenous Given by Marjan Armenta RN Marmolejo pump [email or web address] 10:41 AM Inflation device was opened. [email or web address] 10:41 AM Recorded Pressure: Ao, HR=93, Condition=Condition 1 (Aorta) Ao 146/103/123 10:41 AM HR=91 bpm, WORI=399/88 mmhg, SpO2=96.0 %, Resp=22 B/min, Comment=NSR 10:42 AM 2.0 mm x 12 mm Emerge Monorail balloon across target lesion- successful. reused? No [email or web address] 10:45 AM Balloon inflated @ 6 ruiz for 6 seconds [email or web address] 10:45 AM Balloon inflated @ 6 ruiz for 8 seconds [email or web address] 10:46 AM Balloon inflated @ 6 ruiz for 7 seconds [email or web address] 10:46 AM HR=91 bpm, ZXEV=415/84 mmhg, SpO2=96.0 %, Resp=22 B/min, Comment=NSR 10:46 AM Balloon inflated @ 6 ruiz for 6 seconds [email or web address] 10:46 AM Balloon catheter removed intact. [email or web address] 10:48 AM 2.5mm x 12mm Synergy drug-eluting stent across target lesion- successful Lot #[id number] [email or web address] 10:49 AM Stent deployed @ 9 ruiz for 10 seconds [email or web address] 10:49 AM Stent balloon reinflated @ 16 ruiz for 10 seconds [email or web address] 10:50 AM Stent delivery system removed intact. [email or web address] 10:51 AM 3.0mm x 20mm Synergy drug-eluting stent across target lesion- successful Lot #[id number] [email or web address] 10:51 AM HR=88 bpm, TYZY=427/88 mmhg, SpO2=97.0 %, Resp=20 B/min, Comment=NSR 10:53 AM Stent deployed @ 6 ruiz for 8 seconds [email or web address] 10:53 AM Stent balloon reinflated @ 14 ruiz for 14 seconds [email or web address] 10:53 AM Stent delivery system removed intact. [email or web address] 10:54 AM Recorded Pressure: Ao, HR=92, Condition=Condition 1 (Aorta) Ao 143/100/119 10:55 AM 3.0 mm x 12mm NC Emerge balloon across target lesion- successful. reused? No [email or web address] 10:55 AM Time: 10:40 Patient comfortable and pain free: Yes [email or web address] 10:56 AM Time: 10:25LOC: 4 = Oriented but drowsy [email or web address] 10:56 AM HR=89 bpm, OZGX=869/95 mmhg, SpO2=96.0 %, Resp=27 B/min, Comment=NSR 10:56 AM Balloon inflated @ 18 ruiz for 11 seconds [email or web address] 10:56 AM Balloon inflated @ 18 ruiz for 9 seconds [email or web address] 10:57 AM Balloon inflated @ 20 ruiz for 23 seconds [email or web address] 10:58 AM Balloon catheter removed intact. [email or web address] 10:59 AM Guide wire removed intact. [email or web address] 10:59 AM Guide catheter removed intact. [email or web address] 10:59 AM Time: 10:59 Fentanyl 50 mcg Intravenous Given by Marjan Armenta RN [email or web address] 11:01 AM 6Fr JR 4 [place] Bright-Tip guide catheter was used to cannulate the PCI vessel successfully. reused? No [email or web address] 11:02 AM HR=90 bpm, XJBF=117/103 mmhg, SpO2=96.0 %, Resp=18 B/min, Comment=NSR 11:02 AM Time: 11:02 0.9NaCl 100 ml/hr Intravenous Given by Marjan Armenta RN [email or web address] 11:03 AM Samurai wire re-inserted. [email or web address] 11:06 AM HR=91 bpm, QALE=783/98 mmhg, SpO2=95.0 %, Resp=21 B/min, Comment=NSR 11:06 AM 2.0 mm x 12 mm Emerge Monorail balloon across target lesion- successful. reused? No [email or web address] 11:08 AM Balloon inflated @ 9 ruiz for 17 seconds [email or web address] 11:08 AM Balloon inflated @ 10 ruiz for 18 seconds [email or web address] 11:08 AM Balloon inflated @ 10 ruiz for 13 seconds [email or web address] 11:09 AM Balloon inflated @ 10 ruiz for 15 seconds [email or web address] 11[facility] AM Balloon inflated @ 10 ruiz for 11 seconds [email or web address] 11:11 AM Balloon inflated @ 10 ruiz for 12 seconds [email or web address] 11:11 AM HR=88 bpm, DGSM=337/93 mmhg, SpO2=96.0 %, Resp=20 B/min, Comment=NSR 11:11 AM Time: 10:56LOC: 4 = Oriented but drowsy [email or web address] 11[facility]11 AM Balloon inflated @ 9 ruiz for 7 seconds [email or web address] 11:12 AM Balloon catheter removed intact. [email or web address] 11:12 AM 3.5mm x 16mm Synergy drug-eluting stent across target lesion- successful Lot #[id number] [email or web address] 11:14 AM Stent deployed @ 7 ruiz for 8 seconds [email or web address] 11:14 AM Stent balloon reinflated @ 16 ruiz for 12 seconds [email or web address] 11:16 AM HR=86 bpm, YMIL=192/96 mmhg, SpO2=95.0 %, Resp=16 B/min, Comment=NSR 11:17 AM Stent delivery system removed intact. [email or web address] 11:18 AM Recorded Pressure: Ao, HR=88, Condition=Condition 1 (Aorta) Ao 128/93/109 11:19 AM 2.5mm x 20mm Synergy drug-eluting stent across target lesion- successful Lot #[id number] [email or web address] 11:21 AM Stent deployed @ 9 ruiz for 12 seconds [email or web address] 11:21 AM HR=88 bpm, MCTP=433/91 mmhg, SpO2=95.0 %, Resp=22 B/min, Comment=NSR 11:21 AM Stent balloon reinflated @ 14 ruiz for 12 seconds [email or web address] 11:22 AM Stent delivery system removed intact. [email or web address] 11:26 AM HR=87 bpm, DITC=087/101 mmhg, SpO2=97.0 %, Resp=17 B/min, Comment=NSR 11:26 AM 3.5mm x 12mm Synergy drug-eluting stent across target lesion- successful Lot #[id number] [email or web address] 11:26 AM Time: 11:11LOC: 4 = Oriented but drowsy [email or web address] 11[facility]26 AM Stent deployed @ 6 ruiz for 7 seconds [email or web address] 11:27 AM Stent balloon reinflated @ 14 ruiz for 13 seconds [email or web address] 11:28 AM Stent delivery system removed intact. [email or web address] 11:28 AM Balloon catheter removed intact. [email or web address] 11:29 AM Guide catheter removed intact. [email or web address] 11:31 AM HR=91 bpm, EHTN=254/77 mmhg, SpO2=99.0 %, Resp=21 B/min, Comment=NSR 11:31 AM Time: 11:31 Brilinta 180 mg Orally Given by Marjan Armenta RN [email or web address] 11:32 AM Procedure completed at 11:32 [email or web address] 11:33 AM Sign out completed: Radiation Dose 2554.99 mGy Fluoro Time: 16.6 Isovue 370 - 200ml contrast 191 ml given by Brandon Waller MD. Complications: NoneCardiac Rehab Consult needed: YesConfirmed administered medications: Yes [email or web address] 11:33 AM Isovue 370 - 200ml,1 Bottle(s) used. [email or web address] 11:33 AM Sheath left in place to be pulled on floor/holding areaV+Pad [email or web address] 11:33 AM Estimated Blood Loss: minimal [email or web address] 11:33 AM Post ECG NSR [email or web address] 11:33 AM Post Blood Pressure 133/77 [email or web address] 11:33 AM Information taught Cardiac Cath and PCI [email or web address] 11:33 AM Education needs Procedure, Plan of Care, and Disease Process [email or web address] 11:34 AM Learning barriers :None [email or web address] 11:34 AM Education Methods Verbal [email or web address] 11:34 AM Education evaluation Able to repeat information [email or web address] 11:34 AM Site status No bleeding/hematoma - Rt Groin as reported by Terry Lorenz RT (R) at 11:34 [email or web address] 11:34 AM Opsite applied [email or web address] 11:34 AM Delay to floor No [email or web address] 11:34 AM Family placed in consult room. [email or web address] 11:34 AM Complications: None [email or web address] 11:34 AM Fluoro Time: 16.6 [email or web address] 11:34 AM Isovue 370 - 200ml contrast 191 ml given by Brandon Waller MD. [email or web address] 11:34 AM Radiation Dose 2554.99 mGy [email or web address] 11:34 AM At 11:34 the ACT was 176 seconds. [email or web address] 11:36 AM At 11:36 the ACT was 176 seconds. [email or web address] 11:41 AM Time: 11:26LOC: 4 = Oriented but drowsy [email or web address] 11:44 AM Report given to Piero FRIEDMAN Pt taken to ICU Room #10. 11:43 [email or web address] 11:44 AM Patient out of room: 11:44 [email or web address] Complications Complication None None Hemodynamics Pressures Site Systolic/A Wave Diastolic/V Wave Mean AO 133 110 121 AO 137 115 126 AO 146 103 123 AO 143 100 119 AO 128 93 109 Post Procedure Information Blood Pressure: 133/77 mmHg Rhythm: NSR Post procedural instructions were given Site Checks Time Location Status Staff Sheath In? Note 11:34 AM Rt Groin No bleeding/hematoma Terry Lorenz RT (R) Pulses Time Site Pre-Procedure Post-Procedure Note 10/26/2017 9:09:00 AM Bilateral PT 1+ 1+ 10/26/2017 9:09:00 AM Bilateral DP 2+ 2+ 10/26/2017 9:10:00 AM Bilateral radial 2+ 2+ Updated by Chaparrita Greene RT(R) on 10/26/2017 11:55:23 AM electronically signed on 10/26/2017 11:55:54 AM with status of Final
[2017-10-26] MEDS ORDERED: Acetaminophen 325 MG TABLET PO PRN (12:02)
[2017-10-26] MEDS ORDERED: *HR* OxyCODONE/APAP 5/325 TABLET PO PRN (12:04)
[2017-10-26] MEDS ORDERED: SUBCUTANEOUS INSULIN PUMP MC PRN (12:04)
[2017-10-26 12:30] LABS: Basophils # 0.1 K/mcL (0.0-0.2); Eosinophils # 0.3 K/mcL (0.0-0.6); Eosinophils % 4.7 %; Hematocrit 42.3 % (37.5-50.1); Immature Granulocytes % 0.5 % (0-4); Lymphocytes # 1.1 K/mcL (0.6-4.6); Lymphocytes % 17.6 %; Mean Corpuscular HGB Conc 35.5 g/dL (31.6-35.5); Mean Corpuscular Hemoglobin 31.9 pg (28.0-33.3); Mean Platelet Volume 9.1 fL (9.4-12.4); Monocytes # 0.6 K/mcL (0.0-1.3); Monocytes % 10.7 %; Neutrophils # 3.9 K/mcL (1.6-8.9); Platelet Count 268 K/mcL (140-400); Red Cell Distribution Width 12.6 % (11.5-14.5); Segmented Neutrophils % 65.5 %
[2017-10-26 12:41] LABS: BUN/Creatinine Ratio 15 (6-26); Blood Urea Nitrogen 19 mg/dL (8-26); Calcium 9.3 mg/dL (8.6-10.8); Carbon Dioxide 23 mEq/L (19-29); Chloride 100 mEq/L (98-109); Glucose 280 mg/dL (70-99); Osmolality,Calculated 288 (280-300); Potassium 4.9 mEq/L (3.5-4.5); Sodium 133 mEq/L (136-145); eGFR For African Americans > 60 (> 60); eGFR For Non-African Americans > 60 (> 60)
[2017-10-26] MEDS: (Ipratropium/Albuterol Sulfate [Combivent Respimat In IH SCH ×2 (16:34→19:45)
[2017-10-26] MEDS ORDERED: Albuterol 2.5 MG/3 ML NEBULIZER ONE (18:46)
[2017-10-26] MEDS: Albuterol 2.5 MG/3 ML NEBULIZER IH ONE ×2 (18:47→23:21)
[2017-10-26] MEDS ORDERED: amLODIPine 5 MG TABLET PO ONE (18:58)
[2017-10-26] MEDS: *HR* Ticagrelor 90 MG TABLET PO SCH (19:42)
[2017-10-26] MEDS: Pregabalin 50 MG CAPSULE PO SCH (19:42)
[2017-10-26] MEDS: Furosemide 20 MG TABLET PO SCH (19:43)
[2017-10-27] MEDS ORDERED: Diltiazem SR (12hr) 60 MG CAPSULE PO ONE (00:06)
[2017-10-27] MEDS: 0.9 % Sodium Chloride 1,000 ML IVC SCH (06:08)
[2017-10-27] MEDS: Furosemide 20 MG TABLET PO SCH (07:32)
[2017-10-27] MEDS: *HR* Ticagrelor 90 MG TABLET PO SCH (07:32)
[2017-10-27] MEDS: Pregabalin 50 MG CAPSULE PO SCH (07:33)
[2017-10-27] MEDS ORDERED: (Fluticasone/Vilanterol [Breo Ellipta 100-25 Mcg Inh] IH SCH (09:00)
[2017-10-27] MEDS ORDERED: Aspirin 81 MG TAB.CHEW PO SCH (09:00)
[2017-10-27] MEDS ORDERED: Metoprolol XL (24 HR) Succ 50 MG TAB.ER.24H PO SCH (09:00)
[2017-10-27] MEDS ORDERED: Lisinopril 20 MG TABLET PO SCH (09:00)
[2017-10-27 09:03] LABS: Basophils % 0.6 %; Eosinophils # 0.3 K/mcL (0.0-0.6); Eosinophils % 5.1 %; Hematocrit 42.5 % (37.5-50.1); Hemoglobin 14.6 g/dL (12.9-16.9); Immature Granulocytes % 0.5 % (0-4); Lymphocytes # 0.8 K/mcL (0.6-4.6); Mean Corpuscular HGB Conc 34.4 g/dL (31.6-35.5); Mean Corpuscular Hemoglobin 31.3 pg (28.0-33.3); Mean Platelet Volume 9.6 fL (9.4-12.4); Monocytes # 0.8 K/mcL (0.0-1.3); Monocytes % 12.8 %; Neutrophils # 4.4 K/mcL (1.6-8.9); Platelet Count 211 K/mcL (140-400); Red Blood Count 4.67 M/mcL (4.19-5.50); Red Cell Distribution Width 12.9 % (11.5-14.5)
[2017-10-27 09:13] LABS: BUN/Creatinine Ratio 14 (6-26); Blood Urea Nitrogen 18 mg/dL (8-26); Carbon Dioxide 23 mEq/L (19-29); Chloride 98 mEq/L (98-109); Glucose 223 mg/dL (70-99); Osmolality,Calculated 283 (280-300); Sodium 132 mEq/L (136-145); eGFR For African Americans > 60 (> 60); eGFR For Non-African Americans > 60 (> 60)
[2017-10-27 10:05] VITALS: BP 140/102
[2017-10-27] MEDS: (Ipratropium/Albuterol Sulfate [Combivent Respimat In IH SCH (10:06)
--- NOTE | 2017-10-27 11:00 | Discharge Summary ---
Date of Encounter: 10/27/17 Time of Encounter: 11:06 - Discharge Diagnosis (1) CAD (coronary artery disease) Priority: Primary Status: Acute Qualifiers: Coronary Disease-Associated Artery/Lesion type: [place] artery [place] vs. transplanted heart: [place] heart Associated angina: angina presence unspecified Qualified Code(s): I25.10 - Atherosclerotic heart disease of [place] coronary artery without angina pectoris (2) Diabetes Priority: Secondary Status: Chronic Qualifiers: Diabetes mellitus type: type 1 Diabetes mellitus complication status: with skin complications Diabetes mellitus complication detail: with foot ulcer Qualified Code(s): E10.621 - Type 1 diabetes mellitus with foot ulcer; L97.509 - Non-pressure chronic ulcer of other part of unspecified foot with unspecified severity (3) HTN (hypertension) Priority: Secondary Status: Chronic Qualifiers: Hypertension type: essential hypertension Qualified Code(s): I10 - Essential (primary) hypertension - Discharge Medications Prescriptions: Aspirin 81 mg PO DAILY #30 tab.chew Atorvastatin [Lipitor] 20 mg PO HS #30 tablet Furosemide [Lasix] 20 mg PO BID #60 tablet Metoprolol XL (24 HR) Succ [Toprol Xl] 100 mg PO DAILY #30 tab.er.24h Nicotine Patch [Nicoderm] 21 mg TD DAILY #30 patch.td24 Nitroglycerin [Nitrostat] 0.4 mg SL PRN PRN #30 tab.subl PRN Reason: Chest Pain Ticagrelor [Brilinta] 90 mg PO BID #60 tablet Valsartan [Diovan] 160 mg PO DAILY #30 tablet Home Medications: Montelukast [Singulair] 10 mg PO DAILY 01/28/17 [History] Fluticasone/Vilanterol [Breo Ellipta 100-25 Mcg INH] 1 puff IH DAILY 04/28/17 [ History] Subcutaneous Insulin Pump [T:Slim] 3 units MC Q1H PRN 04/28/17 [History] Pregabalin [Lyrica] 200 mg PO BID 06/08/17 [History] Albuterol Sulfate [Ventolin Hfa] 18 gm IH BID 10/26/17 [History] Cyclobenzaprine HCl 10 mg PO TID PRN 10/26/17 [History] Ipratropium/Albuterol Sulfate [Combivent Respimat Inhal [place]] 4 gm IH TID 10/26 [History] Omeprazole [PriLOSEC] 20 mg PO DAILY 10/26/17 [History] Allopurinol [Zyloprim 100 MG] 100 mg PO DAILY 10/27/17 [History] Aspirin 81 mg PO DAILY #30 tab.chew 10/27/17 [Rx] Atorvastatin [Lipitor] 20 mg PO HS #30 tablet 10/27/17 [Rx] Furosemide [Lasix] 20 mg PO BID #60 tablet 10/27/17 [Rx] Metoprolol XL (24 HR) Succ [Toprol Xl] 100 mg PO DAILY #30 tab.er.24h 10/27/17 [ Rx] Nicotine Patch [Nicoderm] 21 mg TD DAILY #30 patch.td24 10/27/17 [Rx] Nitroglycerin [Nitrostat] 0.4 mg SL PRN PRN #30 tab.subl 10/27/17 [Rx] Ticagrelor [Brilinta] 90 mg PO BID #60 tablet 10/27/17 [Rx] Valsartan [Diovan] 160 mg PO DAILY #30 tablet 10/27/17 [Rx] Allergies/Adverse Reactions: 3 Allergy/AdvReac Type Severity Reaction Status Date / Time Penicillins [PCN] Allergy raises Verified 06/08/17 19:16 blood sugar Procedures/tests Complete & Pending: Procedures Performed prior 72 hours Category Date Time Status CL Cardiac Catheterization [CL] Routine [facility] Coordinator 10/26/17 08:16 Completed ECG 12 lead ECG [ECG] Routine Y 10/26/17 12:02 Completed Date of admission: 10/26/17 11:50 Primary care physician: Leslie Malhotra CNP Consults: 10/26/17 12:04 Consult to Cardiac Rehabilitation-Phase1 [CONS] Routine Comment: Reason for Consult: post op cath Call Completed: Yes Discharging clinician: Kadeem Riley Anticipated date of discharge: 10/27/17 - Patient Status Disposition: Home, Self-Care Condition: Fair Functional capacity at discharge: independent ambulation Overall status at discharge: patient is progressing back to baseline - Discharge Instructions Follow Up With: Leslie Malhotra CNP [Primary Care Provider] - Additional Instructions: RISK FACTORS: STOP SMOKING: If you smoke, STOP. Smoking or tobacco use significantly increases your risk of heart disease because nicotine causes the arteries to narrow or constrict. It also causes fats to stick to the artery. Your chances of having a heart attack are greatly increased if you continue to smoke. For more information, call the education line for smoking cessation 0-852-GULMWJU EAT A LOW FAT/CHOLESTEROL/SODIUM DIET: This diet may help reduce your chances of having a heart attack. LIFTING: Avoid lifting anything more than 10 pounds for 5-7 days Prior to straining, laughing, sneezing and/or coughing, apply manual pressure directly over insertion site. ACTIVITY: You may walk or climb stairs as tolerated You can resume sexual activity as tolerated In general, you are encouraged to engage in a minimum of 30 minutes or more of moderate intensity physical activity, such as brisk walking, daily or at least 3 -4 times weekly BATHING Do not submerge the site into water (bath tub, hot tub, swimming pool) for 1 week. This can be a source for infection into the blood stream. You may shower after 24 hours SITE CARE: After 24 hours, you may remove the dressing and leave the site open to air. Keep the site clean and dry. Clean gently and pat dry. You can expect bruising and tenderness that gradually resolve within a week or two. Return to work as instructed per your physician Resume driving as instructed per physician Keep all scheduled follow up appointments Resume medications as instructed IMPORTANT: If prescribed a Platelet Aggregation Inhibitor such as, Plavix, Brilinta or Effient: Duration of therapy is minimum one year These medications are often used in combination with Aspirin in prevention of future heart attacks Never discontinue unless consult with your Visual Lead STROKE (CVA) Risk factors for a stroke are: Age, cigarette smoking, diabetes, excessive alcohol consumption, family history, high blood pressure, overweight, physical inactivity, prior stroke, heart attack, diagnosis of carotid artery stenosis or other artery disease. Warning signs: Sudden numbness or weakness of the face, arm or leg; especially on one side of the body, sudden confusion, trouble speaking or understanding, sudden trouble seeing in one or both eyes, sudden trouble walking, dizziness, loss of balance or coordination, sudden severe headache with no cause. Call 911 or go to the Emergency Room. CONGESTIVE HEART FAILURE: If you have been diagnosed with Congestive Heart Failure (CHF) and your symptoms return, make an appointment with your physician Weigh yourself daily. Notify your physician if you have a weight gain of two or more pounds in one day or five or more pounds in one week. If you experience any difficulty breathing, please call 911 BLEEDING: Although the risk of bleeding is minimal, it can happen. If you have any bleeding from the site, apply firm pressure above the puncture site for 10-15 minutes. If the bleeding does not stop, continue manual pressure and call 911 Contact your physician if: You develop a fever greater than 101 degrees Fahrenheit Your site becomes reddened or has any drainage You have an increase in pain or burning at the site or if a large knot forms at the site. If you experience chest pain, shortness of breath, dizziness, or extreme tiredness, stop the activity and rest. Please notify your physicians office if you experience any of these symptoms and they are not relieved by rest please call 911! - Diet and Activity Activity: increase activity as tolerated Diet: low fat, low cholesterol - Hospital Course Hospital course: Mr. Kilpatrick is a 37 year old male with PMH of tobacco abuse, DM, HTN, HLD, CKD stage 3, that presented for outpt C yesterday. He received SAMINA to proximal and mid LAD, proximal and mid RCA, RPL. He has been chest pain free overnight, reports breathing is improved and feels better overall. DAPT (ASA and Brilinta) uninterrupted x 1 year. Pt verbalizes understanding. Continue Statin, BB, ARB. Rx given. PRN nitro. Free 30 day Brilinta card given. Labs and vitals stable, renal function in his baseline range. Right femoral access site with moderate ecchymosis, but no active bleeding or hematoma. Follow-up in 3-4 weeks as already scheduled with Dr. Waller. Pt reports smoking cigarettes and using smokeless tobacco. Rx for nicotine patches given. Time spent discussing smoking cessation with patient: 3 to 10 minutes - Time Spent with Patient Total time spent providing and/or coordinating discharge services: Less than 30 minutes Physical Examination Vital Signs, Last 4 Hours Temp Pulse Resp BP Pulse Ox 10/27/17 10:00 87 20 140/102 95 10/27/17 09:00 75 12 134/98 94 10/27/17 08:27 97.7 F 10/27/17 08:00 86 18 136/87 95 10/27/17 07:41 89 10/27/17 07:00 93 24 139/86 96 Vital Signs Temp Pulse Pulse Resp BP Pulse Ox 10/27/17 10:00 87 20 140/102 95 10/27/17 09:00 75 12 134/98 94 10/27/17 08:27 97.7 F 10/27/17 08:00 86 18 136/87 95 10/27/17 07:41 89 10/27/17 07:00 93 24 139/86 96 10/27/17 06:00 81 21 113/77 97 10/27/17 05:00 89 19 105/59 97 10/27/17 04:00 97.7 F 103 17 121/85 96 10/27/17 03:00 83 13 111/69 96 10/27/17 02:00 93 17 118/76 96 10/27/17 01:00 99 18 151/95 95 10/27/17 00:00 114 16 128/85 95 10/26/17 23:19 98.4 F 10/26/17 23:04 99 27 139/95 97 10/26/17 22:00 80 19 149/97 96 10/26/17 21:28 17 98 10/26/17 21:06 93 21 133/87 98 10/26/17 20:00 90 27 147/91 96 10/26/17 19:00 112 18 146/109 97 10/26/17 18:47 16 95 10/26/17 18:45 98.3 F 10/26/17 18:00 97 10 149/101 95 10/26/17 17:00 111 17 147/8 96 10/26/17 16:30 98.6 F 10/26/17 16:04 103 10/26/17 16:00 86 10 126/102 94 10/26/17 15:00 91 18 141/94 96 10/26/17 14:17 86 10/26/17 14:00 88 22 120/85 94 10/26/17 13:30 86 10/26/17 13:00 86 18 122/60 95 10/26/17 12:45 86 86 18 120/89 95 10/26/17 12:30 86 86 18 143/91 93 10/26/17 12:29 86 10/26/17 12:15 92 92 16 137/99 92 10/26/17 12:00 99.0 F 92 90 16 137/99 93 Intake and Output 10/26/17 10/27/17 10/27/17 23:59 07:59 15:59 Intake Total 1190 / 1190 240 / 240 Output Total 1025 / 1025 800 / 800 1250 / 1250 Balance 165 / 165 -560 / -560 -1250 / -1250 Intake: IV Fluids 350 / 350 0.9 % Sodium Chloride 1,000 ML 350 / 350 @ 50 mls/hr IVC .Q20H MANI Rx#: [id number] Oral 840 / 840 240 / 240 Output: Urine 1025 / 1025 800 / 800 1250 / 1250 Other: Meal Breakfast Percent of Meal Consumed 100% # Voids 0 1 # Bowel Movements 1 Blood Glucose* 228 184 General: Conversant, No Apparent Distress HEENT: Atraumatic, Normocephaly, Mucus Membranes Moist Neck: No JVD, Normal carotid pulses Cardiac: Reg Rate and Rhythm, Normal S1 and S2, No Murmur Lungs: Normal Breath Sounds, No Wheeze, Rales, Rhonchi Neuro: Alert and responsive, No focal deficits noted Abdomen: Soft, Non-Tender Skin: Other (right femoral site with moderate ecchymosis. No bleeding or hematoma.) Musculoskeletal: No Chest Wall Tenderness Extremities: No Clubbing, No Cyanosis, No Edema, Normal Pulses
--- NOTE | 2017-10-27 17:49 | Electrocardiograph Report ---
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
== END 2017-10-27 11:40 | disposition home or self-care (01) ==
LOC: INVDIALAB 07:45 → ICNU 07:45
PROVIDERS: ADMIT Internal Medicine Cardiovascular Disease; ATTEND Internal Medicine Cardiovascular Disease

== ENCOUNTER 2018-01-29 13:43 | Inpatient (IN) ==
--- NOTE | 2018-01-29 14:02 | Emergency Department Note ---
Disposition Lower Extremity Injury HPI - General Chief Complaint: ED Extremity Injury, Lower Stated Complaint: Left leg injury Time Seen by Provider: 01/29/18 13:55 Source: patient Mode of arrival: private vehicle Limitations: no limitations Nursing Notes Reviewed: Yes Vital Signs Reviewed: Yes - History of Present Illness Pt Subjective Complaint: thigh injury Injury location: Left Leg Onset (ago): day(s) (5) Mechanism of Injury: blunt Context: direct blow Place: street/outdoors Pain Severity: moderate Improves with: immobilization, rest Worsens with: weight bearing, movement, palpation Associated symptoms: Reports: ambulatory, swelling. Denies: paresthesias Treatments prior to arrival: cold therapy, other (was seen at another ED and had xrays done. Rx Naproxen) - Related Data Home Medications Medication Instructions Recorded Confirmed Montelukast [Singulair] 10 mg PO DAILY 01/28/17 01/24/18 Fluticasone/Vilanterol [Breo 1 puff IH DAILY 04/28/17 01/24/18 Ellipta 100-25 Mcg INH] Subcutaneous Insulin Pump [T:Slim] 0 units MC Q1H PRN 04/28/17 01/24/18 Pregabalin [Lyrica] 200 mg PO BID 06/08/17 01/24/18 Albuterol Sulfate [Ventolin Hfa] 18 gm IH BID 10/26/17 01/24/18 Ipratropium/Albuterol Sulfate 4 gm IH TID 10/26/17 01/24/18 [Combivent Respimat Inhal [place]] Omeprazole [PriLOSEC] 20 mg PO DAILY 10/26/17 01/24/18 Allopurinol [Zyloprim 100 MG] 100 mg PO DAILY 10/27/17 01/24/18 Previous Rx's Medication Instructions Recorded Aspirin 81 mg PO DAILY #30 tab.chew 10/27/17 Atorvastatin [Lipitor] 20 mg PO HS #30 tablet 10/27/17 Furosemide [Lasix] 20 mg PO BID #60 tablet 10/27/17 Metoprolol XL (24 HR) Succ [Toprol 100 mg PO DAILY #30 tab.er.24h 10/27/17 Xl] Nitroglycerin [Nitrostat] 0.4 mg SL PRN PRN #30 tab.subl 10/27/17 Ticagrelor [Brilinta] 90 mg PO BID #60 tablet 10/27/17 Valsartan [Diovan] 160 mg PO DAILY #30 tablet 10/27/17 predniSONE [PredniSONE] 20 mg PO DAILY #5 tablet 12/23/17 Naproxen [Naprosyn] 500 mg PO BID PRN #20 tablet 01/25/18 Allergies Allergy/AdvReac Type Severity Reaction Status Date / Time Penicillins [PCN] Allergy raises Verified 01/29/18 13:53 blood sugar All systems ED: reviewed and negative except as stated. Review of Systems: As Per HPI Constitutional: Denies: fever, chills, weakness Cardiovascular: Denies: chest pain, palpitations Respiratory: Denies: cough, dyspnea, wheezes Gastrointestinal: Denies: abdominal pain, nausea, vomiting Musculoskeletal: Denies: back pain, neck pain, joint swelling Neurological: Denies: headache, weakness, numbness, paresthesias Hematological/Lymphatic: Denies: easy bleeding, easy bruising Past Medical History - Past Medical History Attestation: Yes The following information was validated with the patient. Source: patient Medical history: Reports: arthritis, asthma, coronary artery disease, diabetes, hyperlipidemia, hypertension, myocardial infarction, renal disease, other Surgical history: Reports: appendectomy, herniorrhaphy, orthopedic, other, other Psychiatric history: Reports: anxiety, depression - Social History Smoking Status: Current every day smoker Smokeless Tobacco Status: Yes (2 cans daily) Alcohol use: Reports: occasionally, recent Drug use: Reports: none Physical Exam - General Limitations: no limitations General appearance: alert, in no apparent distress - Head Head exam: atraumatic, normocephalic, normal inspection - Eye Eye exam: Present: normal appearance, PERRL. Absent: scleral icterus, conjunctival injection, periorbital swelling - ENT ENT exam: mucous membranes moist - Neck Neck exam: Present: normal inspection - Respiratory Respiratory exam: Absent: respiratory distress - Cardiovascular Cardiovascular exam: Present: regular rate - Extremities Exam Extremities exam: Present: tenderness, normal capillary refill. Absent: pedal edema, joint swelling, calf tenderness Course Vital Signs Temperature 98.5 F 01/29/18 13:48 Pulse Rate 96 01/29/18 13:48 Respiratory Rate 18 01/29/18 13:48 Blood Pressure 127/79 01/29/18 13:48 O2 Sat by Pulse Oximetry 95 01/29/18 13:48 Temperature 98.5 F 01/29/18 13:48 Pulse Rate 96 01/29/18 13:48 Respiratory Rate 18 01/29/18 13:48 Blood Pressure 127/79 01/29/18 13:48 O2 Sat by Pulse Oximetry 95 01/29/18 13:48 Oxygen Delivery Oxygen Delivery Room Air
[2018-01-29] MEDS ORDERED: *HR* Morphine 2 MG/ML SYRINGE SQ ONE (15:30)
[2018-01-29] MEDS ORDERED: Ondansetron 4 MG/2 ML VIAL IM ONE (15:36)
--- NOTE | 2018-01-29 15:40 | Emergency Department Note ---
Disposition Clinical Impression: Compartment syndrome Qualifiers: Encounter type: initial encounter Compartment syndrome location: lower extremity Laterality: left Disposition: Admitted As Inpatient Condition: Serious General Adult HPI - General Chief complaint: ED Extremity Injury, Lower Stated complaint: Left leg injury Time Seen by Provider: 01/29/18 13:55 Source: patient Limitations: no limitations - History of Present Illness HPI Narrative: Dennis Kilpatrick is a 37 year old male, s/p 5 stents 2016 on Brillinta/ASA, who presents with 5 day onset of left extremity pain after tree falling on his leg, it landed and rolled from upper thigh and pinned his garrett for several seconds. He states he went to a different ED on Thursday, XR showed no fracture, was sent home with pain medication. He is back with progressive pain, encompassing upper thigh and calf, bruising. Onset (ago): day(s) Location: left, lower extremity Pain Severity: severe Pain Scale: 9 Consistency: Worsening Improves with: nothing Worsens with: movement - Related Data Home Medications Medication Instructions Recorded Confirmed Montelukast [Singulair] 10 mg PO DAILY 01/28/17 01/29/18 Fluticasone/Vilanterol [Breo 1 puff IH DAILY 04/28/17 01/29/18 Ellipta 100-25 Mcg INH] Subcutaneous Insulin Pump [T:Slim] 0 units MC AD 04/28/17 01/29/18 Pregabalin [Lyrica] 200 mg PO BID 06/08/17 01/29/18 Albuterol Sulfate [Ventolin Hfa] 2 puff IH Q4H PRN 10/26/17 01/29/18 Ipratropium/Albuterol Sulfate 1 puff IH TID 10/26/17 01/29/18 [Combivent Respimat Inhal [place]] Omeprazole [PriLOSEC] 20 mg PO DAILY 10/26/17 01/29/18 Allopurinol [Zyloprim 100 MG] 200 mg PO DAILY 10/27/17 01/29/18 Atorvastatin [Lipitor] 40 mg PO HS 01/29/18 01/29/18 Ergocalciferol (VITAMIN D2) 50,000 unit PO MO 01/29/18 01/29/18 [Vitamin D2] Metoprolol Succinate [Toprol Xl] 100 mg PO DAILY 01/29/18 01/29/18 Nitroglycerin [Nitrostat] 0.4 mg SL Q5M PRN 01/29/18 01/29/18 Previous Rx's Medication Instructions Recorded Aspirin 81 mg PO DAILY #30 tab.chew 10/27/17 Furosemide [Lasix] 20 mg PO BID #60 tablet 10/27/17 Ticagrelor [Brilinta] 90 mg PO BID #60 tablet 10/27/17 Valsartan [Diovan] 160 mg PO DAILY #30 tablet 10/27/17 Allergies Allergy/AdvReac Type Severity Reaction Status Date / Time Penicillins [PCN] Allergy raises Verified 01/29/18 13:53 blood sugar Constitutional: Denies: fever, chills Eyes: Denies: eye pain Cardiovascular: Denies: chest pain Respiratory: Denies: dyspnea Gastrointestinal: Denies: abdominal pain Musculoskeletal: Reports: as per HPI Integumentary: Reports: lesions (after trauma from tree) Neurological: Denies: headache Psychiatric: Denies: anxiety Endocrine: Denies: fatigue Past Medical History - Past Medical History Medical history: Reports: arthritis, asthma, coronary artery disease, diabetes, hyperlipidemia, hypertension, myocardial infarction, renal disease, other Surgical history: Reports: appendectomy, herniorrhaphy, orthopedic, other, other Psychiatric history: Reports: anxiety, depression - Social History Smoking Status: Current every day smoker Smokeless Tobacco Status: Yes (2 cans daily) Alcohol use: Reports: occasionally, recent Drug use: Reports: none Physical Exam - General Limitations: no limitations General appearance: alert, in no apparent distress - Head Head exam: atraumatic - Eye Eye exam: Present: EOMI - ENT ENT exam: mucous membranes moist - Respiratory Respiratory exam: Present: normal lung sounds bilaterally. Absent: respiratory distress - Cardiovascular Cardiovascular exam: Present: regular rate, normal rhythm. Absent: rubs, gallop , clicks - Abdominal Exam Abdominal exam: Present: soft, Non-Tender. Absent: distention, ascites - Expanded Lower Extremity Exam Upper leg exam: Present: other (ecchymosis left medial thigh, contusion) Knee exam: Present: abrasion, laceration, ecchymosis. Absent: deformity, crepitus Lower leg exam: Present: other (absent dorsalis pedis pulse on L, L calf skin is taut, tender on general palpation, cool to touch) - Neurological Exam Neurological exam: Present: alert, oriented X3, other (limbs when assisted going to the bathroom) - Psychiatric Psychiatric exam: Present: normal affect, normal mood - Skin Skin exam: Present: erythema (anterior L garrett) Course Course Narrative: Dennis Kilpatrick presents s/p tree trunk falling on L leg 5 days ago. Prior separate ED visit performed XR showing no fracture, he presents today with worsening/progressive pain, ecchymosis, and left calf that is tight to the touch. Doppler US finds presence of PD pulse, but diminished DP pulse. [place] of left lower extremity performed showed pressures >30. Dr. Lopez has been consulted who agrees to take patient emergently to the OR for fasciotomy. Stat CBC/BMP, ECG/CXR ordered in preparation for OR. Admitter notified of plan for admission. Vital Signs Temperature 98.5 F 01/29/18 13:48 Pulse Rate 96 01/29/18 13:48 Respiratory Rate 18 01/29/18 13:48 Blood Pressure 127/79 01/29/18 13:48 O2 Sat by Pulse Oximetry 95 01/29/18 13:48 Temperature 98.5 F 01/29/18 13:48 Pulse Rate 100 01/29/18 16:14 Respiratory Rate 18 01/29/18 16:14 Blood Pressure 143/100 01/29/18 16:14 O2 Sat by Pulse Oximetry 94 01/29/18 16:14 Oxygen Delivery Oxygen Delivery Room Air Medical Decision Making - Medical Records Medical records reviewed: Yes I reviewed the patient's medical records. - Lab Data Lab results reviewed: Yes I reviewed the patient's lab results. Result diagrams: 01/29/18 15:42 01/29/18 15:42 Lab Results 01/29/18 01/29/18 Range/Units 15:42 15:42 WBC 8.1 (4.3-11.1) K/mcL RBC 4.83 (4.19-5.50) M/mcL Hgb 14.9 (12.9-16.9) g/dL Hct 42.7 (37.5-50.1) % MCV 88.4 (83.0-100.0) fL MCH 30.8 (28.0-33.3) pg MCHC 34.9 (31.6-35.5) g/dL RDW 13.3 (11.5-14.5) % Plt Count 280 (140-400) K/mcL MPV 9.2 L (9.4-12.4) fL Immature Gran % 0.9 (0-4) % Seg Neutrophils % 66.4 % Lymphocytes % 15.8 % Monocytes % 11.3 % Eosinophils % 4.9 % Basophils % 0.7 % Neutrophils # 5.4 (1.6-8.9) K/mcL Lymphocytes # 1.3 (0.6-4.6) K/mcL Monocytes # 0.9 (0.0-1.3) K/mcL Eosinophils # 0.4 (0.0-0.6) K/mcL Basophils # 0.1 (0.0-0.2) K/mcL Sodium 138 (136-145) mEq/L Potassium 4.3 (3.5-5.1) mEq/L Chloride 99 (98-107) mEq/L Carbon Dioxide 25 (23-29) mEq/L BUN 22 H (6-20) mg/dL Creatinine 1.45 H (0.70-1.30) mg/dL Est GFR ( Amer) > 60 (> 60) Est GFR (Non-Af Amer) 54 L (> 60) BUN/Creatinine Ratio 15 (6-26) Glucose 149 H (70-105) mg/dL Calculated Osmolality 292 (280-300) Calcium 9.7 (8.6-10.3) mg/dL - Radiology Data Radiology results reviewed: Yes I reviewed the patient's radiology results. Chest X-Ray 01/29/18 15:42 IMPRESSION: No acute cardiopulmonary process. D/ / Kaveh Martinez MD / Kaveh Martinez MD Interpreting Provider: Kaveh Martinez MD
[2018-01-29] MEDS ORDERED: *HR* Morphine 2 MG/ML SYRINGE IVP PRN ×3 (15:44→21:44)
--- NOTE | 2018-01-29 15:45 | Emergency Department Note ---
START Narrative - START START: I examined this patient and my medical decision-making was reviewed with the VP PRODUCT MANAGEMENT/PA/Advanced Practice Nurse/Resident Physician. I agree with the documented findings, disposition and treatment plan as described except to the extent set forth below. I did see the patient spoke with an examine him and I was not able to palpate peripheral pulses so Doppler study showed a Doppler PT pulse but no DP pulse and a Lila was used by Dr. Craig showing a pressure of 89 so the patient will be taken emergently to the operating room secondary to compartment syndrome. Preoperative labs, EKG and chest x-ray will be done. The patient will be admitted to medicine. [id number]
[2018-01-29] MEDS ORDERED: Ondansetron 4 MG/2 ML VIAL IVP ONE (15:49)
--- NOTE | 2018-01-29 16:04 | Orthopedic Consult Note ---
Date of Encounter: 01/29/18 Time of Encounter: 16:01 Assessment and Plan (1) Compartment syndrome of left lower extremity Current Visit: Yes Status: Acute The patient has a subacute developing compartment syndrome as been developing past 5 days. Since he is on the rilinta, is probably significant bleeding into the leg. He will be taken for emergent fasciotomies of the left leg. Informed consent was obtained. We will also check compartment pressures of his foot intraoperatively. Qualifiers: Encounter type: initial encounter Qualified Code(s): T79.A22A - Traumatic compartment syndrome of left lower extremity, initial encounter History of Present Illness Chief complaint: Left leg swelling and pain HPI: Mr. Kilpatrick is a 37 year old male who is significant past medical history of coronary disease with recent stents placed 2 months ago. The patient is working outside of the weekend and was cutting a tree when a tree fell onto his left leg. He was evaluated by the [facility]. He was told no fractures but use Naprosyn for the swelling. Patient reports increasing swelling since the weekend. The pain level has increased significantly to the point of being 10/ 10 at this point. He is using Brilinta. Past Med Surg Social Fam HX - Past Medical History Medical history: arthritis, asthma, coronary artery disease, diabetes, hyperlipidemia, hypertension, myocardial infarction, renal disease, other Psychiatric history: anxiety, depression - Past Surgical History Surgical History: appendectomy, herniorrhaphy, orthopedic, other (Right endoscopic carpal tunnel release), other - Social History Smoking Status: Current every day smoker Smokeless Tobacco Status: Yes (2 cans daily) Alcohol use: occasionally, recent Drug use: none - Family History Father Hx Family Cardiac Disorders: Yes Medications and Allergies Montelukast [Singulair] 10 mg PO DAILY 01/28/17 [History] Fluticasone/Vilanterol [Breo Ellipta 100-25 Mcg INH] 1 puff IH DAILY 04/28/17 [ History] Subcutaneous Insulin Pump [T:Slim] 0 units MC Q1H PRN 04/28/17 [History] Pregabalin [Lyrica] 200 mg PO BID 06/08/17 [History] Albuterol Sulfate [Ventolin Hfa] 18 gm IH BID 10/26/17 [History] Ipratropium/Albuterol Sulfate [Combivent Respimat Inhal [place]] 4 gm IH TID 10/26 [History] Omeprazole [PriLOSEC] 20 mg PO DAILY 10/26/17 [History] Allopurinol [Zyloprim 100 MG] 100 mg PO DAILY 10/27/17 [History] Aspirin 81 mg PO DAILY #30 tab.chew 10/27/17 [Rx] Atorvastatin [Lipitor] 20 mg PO HS #30 tablet 10/27/17 [Rx] Furosemide [Lasix] 20 mg PO BID #60 tablet 10/27/17 [Rx] Metoprolol XL (24 HR) Succ [Toprol Xl] 100 mg PO DAILY #30 tab.er.24h 10/27/17 [ Rx] Nitroglycerin [Nitrostat] 0.4 mg SL PRN PRN #30 tab.subl 10/27/17 [Rx] Ticagrelor [Brilinta] 90 mg PO BID #60 tablet 10/27/17 [Rx] Valsartan [Diovan] 160 mg PO DAILY #30 tablet 10/27/17 [Rx] predniSONE [PredniSONE] 20 mg PO DAILY #5 tablet 12/23/17 [Rx] Naproxen [Naprosyn] 500 mg PO BID PRN #20 tablet 01/25/18 [Rx] 3 Allergy/AdvReac Type Severity Reaction Status Date / Time Penicillins [PCN] Allergy raises Verified 01/29/18 13:53 blood sugar All Systems Reviewed: The remainder of the systems were reviewed and are negative Physical Exam - Constitutional Vitals: Temp Pulse Resp BP Pulse Ox 98.5 F 91 16 146/89 95 01/29/18 13:48 01/29/18 15:04 01/29/18 15:04 01/29/18 15:04 01/29/18 15:04 General appearance IM: mild distress, A&O X 3, answers questions appropriately Exam: Left lower extremity: Positive model ecchymosis to the thigh. Significant swelling of the leg. Diminished sensation of the foot and no palpable pulses. The leg is firm and very tender, slightly soft anteriorly but very tense posteriorly. Pain with passive motion. Patient's blood pressure had a diastolic of 105 His leg was prepped with chlorhexidine. Using the [employer] manometer, I took pressure readings ranging from 35 anteriorly and laterally, 45 posterior superficial and 65 posterior deep. Results - Labs Labs: All other labs normal. Consult Discharge Plan - Plan Referrals: Leslie Malhotra, CABIN SUPERVISOR [Primary Care Provider] -
[2018-01-29] MEDS ORDERED: *HR* FentaNYL (PF) 100 MCG/2 ML VIAL ONE (16:25)
[2018-01-29] MEDS ORDERED: *HR* Propofol 200 MG/20 ML VIAL IVP ONE (16:26)
[2018-01-29] MEDS ORDERED: *HR* Midazolam HCl 2 MG/2 ML VIAL ONE (16:26)
[2018-01-29] MEDS ORDERED: Lidocaine -MPF 2% 2 ML VIAL ONE (16:29)
[2018-01-29 16:31] LABS: Basophils # 0.1 K/mcL (0.0-0.2); Basophils % 0.7 %; Eosinophils # 0.4 K/mcL (0.0-0.6); Eosinophils % 4.9 %; Hematocrit 42.7 % (37.5-50.1); Hemoglobin 14.9 g/dL (12.9-16.9); Immature Granulocytes % 0.9 % (0-4); Lymphocytes # 1.3 K/mcL (0.6-4.6); Lymphocytes % 15.8 %; Mean Corpuscular HGB Conc 34.9 g/dL (31.6-35.5); Mean Corpuscular Hemoglobin 30.8 pg (28.0-33.3); Mean Corpuscular Volume 88.4 fL (83.0-100.0); Mean Platelet Volume 9.2 fL (9.4-12.4); Monocytes # 0.9 K/mcL (0.0-1.3); Monocytes % 11.3 %; Neutrophils # 5.4 K/mcL (1.6-8.9); Platelet Count 280 K/mcL (140-400); Red Blood Count 4.83 M/mcL (4.19-5.50); Red Cell Distribution Width 13.3 % (11.5-14.5); Segmented Neutrophils % 66.4 %
[2018-01-29] MEDS ORDERED: *HR* HYDROcodone/Acet 5/325 mg TABLET PO PRN (16:45)
[2018-01-29] MEDS ORDERED: Naloxone 0.4 MG/ML INJ IVP PRN ×2 (16:45→21:44)
[2018-01-29] MEDS ORDERED: Ringers Solution, Lactated 1,000 ML IVC SCH ×2 (16:45→21:44)
[2018-01-29] MEDS ORDERED: Acetaminophen 325 MG TABLET PO PRN (16:45)
[2018-01-29] MEDS ORDERED: Dextrose Gel 15 GM/37.5 ML TUBE PO PRN ×4 (16:47→21:44)
[2018-01-29] MEDS ORDERED: D5% in Water 1,000 ML IVC PRN ×2 (16:47→21:44)
[2018-01-29] MEDS ORDERED: *HR* Dextrose 50 % in Water (Syg) 50 ML SYRINGE IVP PRN ×2 (16:47→21:44)
--- NOTE | 2018-01-29 16:50 | Internal Med History&Physical ---
Date of Encounter: 01/29/18 Time of Encounter: 16:49 Assessment and Plan (1) Compartment syndrome of left lower extremity Current visit: Yes Status: Acute Worsening swelling and tightness in left leg, secondary to trauma. Distal pulses noted to be feeble, with elevated compartmental pressure in the ER; patient requires urgent fasciotomy; orthopedic surgeries on board, plan for urgent intervention tonight. Continue pain control with when necessary IV fentanyl and oral oxycodone. Patient is noted to be on aspirin and Brilinta at home due to recent coronary stents; these need to be resumed as soon as cleared by Orthopedics surgery; avoid anticoagulants at this time due to risk of perioperative bleeding; Qualifiers: Encounter type: initial encounter Qualified Code(s): T79.A22A - Traumatic compartment syndrome of left lower extremity, initial encounter (2) Chronic kidney disease Current visit: Yes Status: Chronic Serum creatinine noted to be at 1.45, at baseline. Continue to monitor closely. Qualifiers: Chronic kidney disease stage: stage 3 (moderate) Qualified Code(s): N18.3 - Chronic kidney disease, stage 3 (moderate) (3) Tobacco use Current visit: Yes Status: Chronic (4) CAD (coronary artery disease) Current visit: Yes Status: Chronic Dual antiplatelet therapy to be resumed as soon as cleared by orthopedic surgery. Patient received coronary stents in October 2017. Continue statin and beta prince. Qualifiers: Coronary Disease-Associated Artery/Lesion type: torres martinez artery [place] vs. transplanted heart: torres martinez heart Associated angina: without angina Qualified Code(s): I25.10 - Atherosclerotic heart disease of torres martinez coronary artery without angina pectoris (5) Diabetes Current visit: Yes Status: Chronic Accu-Chek blood glucose monitoring with basal bolus insulin regimen. Patient is probably on insulin pump at home, will hold for now and continue sliding scale; Qualifiers: Diabetes mellitus type: type 2 Diabetes mellitus correction insulin use: with terminal operations manager use Diabetes mellitus complication status: with kidney complications Diabetes mellitus complication detail: with chronic kidney disease Chronic kidney disease stage: stage 3 (moderate) Qualified Code(s): E11.22 - Type 2 diabetes mellitus with diabetic chronic kidney disease; N18.3 - Chronic kidney disease, stage 3 (moderate); N18.3 - Chronic kidney disease, stage 3 (moderate); Z79.4 - terminal clerk (current) use of insulin; Z79.4 - [facility] (current) use of insulin; Z79.4 - terminal clerk (current) use of insulin; Z79.4 - terminal clerk (current) use of insulin (6) HLD (hyperlipidemia) Current visit: Yes Status: Chronic Qualifiers: Hyperlipidemia type: unspecified Qualified Code(s): E78.5 - Hyperlipidemia , unspecified (7) HTN (hypertension) Current visit: Yes Status: Chronic Qualifiers: Hypertension type: essential hypertension Qualified Code(s): I10 - Essential (primary) hypertension Internal Medicine - H&P: HPI Chief complaint: Left leg pain and swelling Admitted From: Emergency Dept Plans for Post Hospital Care: Home History of present illness: Mr. Kilpatrick is a 37 year old male with h/o- hypertension, diabetes, coronary artery disease, who presents with complaints of worsening left leg pain and swelling. Patient reports working at his friend's house about 5 days ago, when he had a tree fall on his left thigh and rollover onto his leg. He presented to emergency room soon after this episode, had x-rays taken, no fractures, and was discharged home with when necessary pain medication. He felt well for the next 2 days, however, began to have significant burning pain in his left leg associated with tightness and swelling involving his entire left leg, getting worse for the last 3 days. His pain gets worse with any pressure or weight bearing, and he is unable to ambulate independently at this time. He does have numbness in the distal legs and hands due to diabetic neuropathy. No fever, chills, nausea, vomiting. Past Med Surg Social Fam HX - Past Medical History Medical history: arthritis, asthma, coronary artery disease, diabetes, hyperlipidemia, hypertension, myocardial infarction, renal disease, other Psychiatric history: anxiety, depression - Past Surgical History Surgical History: appendectomy, herniorrhaphy, orthopedic, other (right foot tendon repair), other - Social History Smoking Status: Current every day smoker Smokeless Tobacco Status: Yes (2 cans daily) Alcohol use: occasionally, recent Drug use: none Occupational status: employed Current living situation: Home, With Family Activity Level: Independent ambulation Recent Out of Country Travel Within the Last 8 Weeks: No Exposure or Possible Exposure to Illness During Travel: No - Family History Father Hx Family Cardiac Disorders: Yes Internal Medicine - H&P: Meds Montelukast [Singulair] 10 mg PO DAILY 01/28/17 [History] Fluticasone/Vilanterol [Breo Ellipta 100-25 Mcg INH] 1 puff IH DAILY 04/28/17 [ History] Subcutaneous Insulin Pump [T:Slim] 0 units MC AD 04/28/17 [History] Pregabalin [Lyrica] 200 mg PO BID 06/08/17 [History] Albuterol Sulfate [Ventolin Hfa] 2 puff IH Q4H PRN 10/26/17 [History] Ipratropium/Albuterol Sulfate [Combivent Respimat Inhal [place]] 1 puff IH TID 10/02 [History] Omeprazole [PriLOSEC] 20 mg PO DAILY 10/26/17 [History] Allopurinol [Zyloprim 100 MG] 200 mg PO DAILY 10/27/17 [History] Aspirin 81 mg PO DAILY #30 tab.chew 10/27/17 [Rx] Furosemide [Lasix] 20 mg PO BID #60 tablet 10/27/17 [Rx] Ticagrelor [Brilinta] 90 mg PO BID #60 tablet 10/27/17 [Rx] Valsartan [Diovan] 160 mg PO DAILY #30 tablet 10/27/17 [Rx] Atorvastatin [Lipitor] 40 mg PO HS 01/29/18 [History] Ergocalciferol (VITAMIN D2) [Vitamin D2] 50,000 unit PO MO 01/29/18 [History] Metoprolol Succinate [Toprol Xl] 100 mg PO DAILY 01/29/18 [History] Nitroglycerin [Nitrostat] 0.4 mg SL Q5M PRN 01/29/18 [History] 3 Allergy/AdvReac Type Severity Reaction Status Date / Time Penicillins [PCN] Allergy raises Verified 01/29/18 13:53 blood sugar All Systems PM: A 10-system review of systems was performed and is negative for pertinent findings except as documented above in the HPI. - Constitutional Constitutional: no chills, no fever(s), no night sweats - EENT Eyes: no change in vision, no discharge, no pain, no photophobia Ears: no ear discharge, no ear pain, no tinnitus Nose, mouth and throat: no dysphagia, no nasal discharge, no neck pain, no sore throat - Cardiovascular Cardiovascular ROS IM: no chest pain, no diaphoresis, no dyspnea, no lightheadedness, no palpitations, no syncope - Respiratory Respiratory: no cough, no dyspnea, no wheezing, no excessive phlegm production - Gastrointestinal Gastrointestinal: no abdominal pain, no diarrhea, no hematemesis, no hematochezia, no melena, no nausea, no vomiting - Musculoskeletal Musculoskeletal ROS IM: limited range of motion - Integumentary Integumentary IM: erythema - Neurological Neurological ROS: no confusion, no convulsions, no focal weakness, no numbness, no tingling, no tremor(s) - Hematologic/Lymphatic Hematologic/Lymphatic: no easy bruising - Constitutional Vitals: Temp Pulse Resp BP Pulse Ox 98.5 F 100 18 143/100 94 01/29/18 13:48 01/29/18 16:14 01/29/18 16:14 01/29/18 16:14 01/29/18 16:14 General appearance: Present: A&O X 3, obese, answers questions appropriately - Respiratory Respiratory exam: Present: CTAB. Absent: accessory muscle use, rales, rhonchi, wheezes - Cardiovascular Cardiovascular exam: Present: RRR, +S1, +S2. Absent: diastolic murmur, gallop, rubs, systolic murmur - GI/Abdominal GI/Abdominal exam: Present: normal bowel sounds, soft, no peritoneal signs. Absent: distended, tenderness - Extremities Exam Extremities exam: Present: pedal edema, warm, radial pulses palpable and symmetrical. Absent: calf tenderness, cyanotic Additional comments: Left leg- diffuse edema, tenderness; ecchymoses over left medial thigh and knee ; open incision with clotting blood, over medial left leg - Neurological Exam Neurological exam: Present: CN II-XII intact, oriented X3, no focal deficits. Absent: pronater drift, facial droop, speech deficit Internal Med - H&P Results - Labs CBC & Chem 7: 01/29/18 15:42 01/29/18 15:42 Labs: Short CBC 01/29/18 Range/Units 15:42 WBC 8.1 (4.3-11.1) K/mcL Hgb 14.9 (12.9-16.9) g/dL Hct 42.7 (37.5-50.1) % Plt Count 280 (140-400) K/mcL Neutrophils # 5.4 (1.6-8.9) K/mcL - Impressions ITS Impressions Chest X-Ray 01/29/18 15:42 IMPRESSION: No acute cardiopulmonary process. D/ / Kaveh Martinez MD / Kaveh Martinez MD Interpreting Provider: Kaveh Martinez MD
[2018-01-29 16:53] LABS: BUN/Creatinine Ratio 15 (6-26); Blood Urea Nitrogen 22 mg/dL (6-20); Calcium 9.7 mg/dL (8.6-10.3); Carbon Dioxide 25 mEq/L (23-29); Chloride 99 mEq/L (98-107); Glucose 149 mg/dL (70-105); Osmolality,Calculated 292 (280-300); Potassium 4.3 mEq/L (3.5-5.1); Sodium 138 mEq/L (136-145); eGFR For African Americans > 60 (> 60); eGFR For Non-African Americans 54 (> 60)
--- NOTE | 2018-01-29 17:32 | Anesthesia Evaluation PreOp ---
Date of Encounter: 01/29/18 Time of Encounter: 17:30 - Past History Planned Operation: Fasciotomy LEFT LE Cardiac History: [place], HTN, Hyperlipidemia, Other (CAD, PTCA X5 10/2017.) Pulmonary History: Smoker (2 cigs/day. 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 4.5 units/hr.), GERD, Other (Obesity, Anxiety, Depression) Anesthesia History: No Prior Anesthetic Complications, Past Anesthesia Alcohol Use: occasionally, recent Drug use: none Medications and Allergies Montelukast [Singulair] 10 mg PO DAILY 01/28/17 [History] Fluticasone/Vilanterol [Breo Ellipta 100-25 Mcg INH] 1 puff IH DAILY 04/28/17 [ History] Subcutaneous Insulin Pump [T:Slim] 0 units MC AD 04/28/17 [History] Pregabalin [Lyrica] 200 mg PO BID 06/08/17 [History] Albuterol Sulfate [Ventolin Hfa] 2 puff IH Q4H PRN 10/26/17 [History] Ipratropium/Albuterol Sulfate [Combivent Respimat Inhal [place]] 1 puff IH TID 10/02 [History] Omeprazole [PriLOSEC] 20 mg PO DAILY 10/26/17 [History] Allopurinol [Zyloprim 100 MG] 200 mg PO DAILY 10/27/17 [History] Aspirin 81 mg PO DAILY #30 tab.chew 10/27/17 [Rx] Furosemide [Lasix] 20 mg PO BID #60 tablet 10/27/17 [Rx] Ticagrelor [Brilinta] 90 mg PO BID #60 tablet 10/27/17 [Rx] Valsartan [Diovan] 160 mg PO DAILY #30 tablet 10/27/17 [Rx] Atorvastatin [Lipitor] 40 mg PO HS 01/29/18 [History] Ergocalciferol (VITAMIN D2) [Vitamin D2] 50,000 unit PO MO 01/29/18 [History] Metoprolol Succinate [Toprol Xl] 100 mg PO DAILY 01/29/18 [History] Nitroglycerin [Nitrostat] 0.4 mg SL Q5M PRN 01/29/18 [History] 3 Allergy/AdvReac Type Severity Reaction Status Date / Time Penicillins [PCN] Allergy raises Verified 01/29/18 13:53 blood sugar - Meds/Allergy Pre-op Review Medications Reviewed: Yes Allergies Reviewed: Yes Beta Blockers on Current Med List: Yes Anesthesia Results - Labs 01/29/18 15:42 01/29/18 15:42 Anesthesia Exam O2 Sat Height 1.7 m Weight 116.573 kg BMI 40 Vital Signs/O2 Sat/Glucose, Most Recent Temp Pulse Resp BP Pulse Ox 98.5 F 100 18 143/100 94 01/29/18 13:48 01/29/18 16:14 01/29/18 16:14 01/29/18 16:14 01/29/18 16:14 NPO (# of Hours): 6 hrs - clears - HEENT Mallampati: III Teeth: Normal - Cardiac Rhythm: Regular - Pulmonary Breath Sounds: bilateral Clear Anesthesia Assess/Plan ASA Score: 4, E Modified [place] Scale for Level of Consciousness: Cooperative, oriented, and tranquil Anesthetic Plan: General Monitoring Plan: Standard Monitors Recovery Plan: PACU Anes Supervising Prov Stmt: I have participated in the evaluation of this patient. Patient informed and consented. Risks, benefits, and alternatives discussed. Patient wishes to proceed.
[2018-01-29] MEDS ORDERED: Acetaminophen IV 1,000 MG/100 ML INFUS..BTL ONE (17:53)
[2018-01-29] MEDS ORDERED: *HR* Succinylcholine 200 MG/10 ML VIAL IVP ONE ×2 (17:56→19:52)
[2018-01-29] MEDS ORDERED: Ketamine *HR* 500 MG/10 ML MDV ONE (17:58)
[2018-01-29] MEDS ORDERED: Insulin LISPRO 300 UNITS/3 ML VIAL SQ SCH (18:00)
[2018-01-29] MEDS ORDERED: Dexamethasone 4 MG/ML VIAL ONE (18:14)
[2018-01-29] MEDS ORDERED: Ondansetron 4 MG/2 ML VIAL ONE (18:26)
[2018-01-29] MEDS ORDERED: Water for inj. (sterile) 10 ML IV ONE (18:29)
[2018-01-29] MEDS ORDERED: Propofol 500 MG/50 ML INFUS..BTL ONE (18:29)
[2018-01-29] MEDS ORDERED: *HR* PHENYLEPHRINE 1,000 MCG/10 ML SYRINGE IVP ONE ×2 (18:58→19:41)
[2018-01-29] MEDS ORDERED: *HR* Labetalol 20 MG/4 ML SYRINGE IVP PRN (19:02)
[2018-01-29] MEDS ORDERED: Ondansetron 4 MG/2 ML VIAL IVP PRN ×2 (19:02→21:44)
[2018-01-29] MEDS ORDERED: *HR* Ticagrelor 90 MG TABLET PO SCH (21:00)
--- NOTE | 2018-01-29 21:40 | Operative Note ---
Date of procedure: 01/29/18 Pre-op diagnosis: Left leg compartment syndrome Post-op diagnosis: other (Left leg and left foot compartment syndrome) Procedure: Left lower extremity fasciotomies to the leg and to the foot, for compartment releases Anesthesia: RUTH Surgeon: Grey Lopez Was there an digital assistant present: No Estimated blood loss (cc): 100 Specimen: 0 Condition: stable Disposition: PACU Procedure in Detail: Indications: Patient is a 33-year-old gentleman who sustained trauma to the left lower extremity 5 days ago. The patient and a friend with cutting down a tree when a tree hit his left thigh rolled down his leg. The patient is currently on antiplatelet medications for recent stents after an MRI. Patient presented with increased leg swelling and elevated compartment pressures in the leg in the emergency room. It was sent to check the foot compartment pressures later in the operating room. His thigh was completely soft. Procedure: The patient was brought to the operating room and placed or table in supine position. He underwent general anesthesia. His left lower extremity was then prepped and draped in usual sterile fashion. His left thigh, though ecchymotic , was still very soft. His leg and foot was swollen and tense. The patient's diastolic pressure 1 seizure was 53. It was noted that the diastolic pressure in the emergency room when he is having significant pain was 105. A timeout was performed. Using the [employer] manometer, the compartment pressures in his leg were taken. Anterior compartment measured 60 mmHg, lateral 58, posterior superficial 41, and posterior deep 43. On checking his foot, the lateral compartment measured 16, medial 20, interossei third metatarsal space with a 3, second metatarsal space 25 and the foot central compartment 53 Starting on the leg, a 12 - 15 cm long which she will incision was made on the anterolateral aspect of the leg. The subcutaneous tissues very edematous and elevated full-thickness off the muscle fascia making sure the superficial peroneal nerve was not in the way. Going anterior to the lateral meniscus septum, the anterior fascia was sharply incised longitudinally and going proximally and distally extending under the incision line. The muscle belly appeared, healthy and well perfused, with one small to similar patch of darkened tissue. Going inferiorly the fascia also incised releasing the lateral compartment. Next a 12-15 cm long incision was made on the posterior medial aspect of the leg. The fascia was incised longitudinally over the superficial posterior compartment. The muscle had also bed in good healthy/ friable condition. The muscle was elevated and exposing the soleus muscle, splitting the fascia and decompressing the posterior deep compartment. Sharply dissect all way down to the interosseous membrane. Moving to the foot, 2 parallel, short surgical made, approximately 4-5 cm long one over the dorsum of the second metatarsal space and over the third metatarsal space, at the mid to distal foot. Using a hemostat, I saw from the medial incision and releasing the first and second interossei compartments and going deeply releasing the medial and deep central compartments. The lateral incision, humerus and third and fourth dressing compartments was a lateral compartment and superficial middle cerebral compartments. The patient also very swollen medial calcaneal region. A 3 cm incision was made head releasing the medial calcaneal compartment. Compartment pressure measures very checked at the leg. Anterior 10, lateral 6, posterior superficial 6, and posterior deep 5. We checking the foot, lateral 24, medial 17 fitted interosseous space 12, second interspace 24 and central deep was 66. These hemostat once again and getting into the prominence and spreading, making sure to get into the inferior central compartment. This pressure now measured 19. The lateral and second interosseous space compartment pressures now went down to 17. The leg and foot felt much softer now. The open wounds were cultured with normal saline. Using 0 nylon, horizontal mattress sutures were placed on the dorsal foot skin incisions. The wounds were left open sutures not tied. On the medial aspect of the calcaneus, the proximal and distal ends of the incision was closed with 3-0 nylon simple sutures and a horizontal mattress sutures placed left untied. At the leg incisions, these were also left open. I placed multiple 3-0 nylon vertical mattress sutures at both incision sites. Sterile bulky soft dressings were applied. The patient was extubated and taken to the floor in stable condition.
[2018-01-29] MEDS ORDERED: *HR* Labetalol 100 MG/20 ML MDV IVP PRN (21:44)
[2018-01-29] MEDS: Acetaminophen 325 MG TABLET PO PRN (23:29)
[2018-01-30] MEDS ORDERED: CeFAZolin Syringe 2,000MG/20 ML SYR IVPB SCH
[2018-01-30] MEDS: CeFAZolin Premix DUPLEX 2,000 MG/50 ML BAG IVPB SCH ×3 (00:31→16:25)
[2018-01-30] MEDS: Insulin LISPRO 300 UNITS/3 ML VIAL SQ SCH ×4 (00:31→16:26)
[2018-01-30] MEDS: *HR* HYDROcodone/Acet 5/325 mg TABLET PO PRN ×4 (01:43→21:52)
[2018-01-30] MEDS: Acetaminophen 325 MG TABLET PO PRN (05:36)
[2018-01-30 05:41] LABS: Basophils % 0.2 %; Eosinophils % 0.1 %; Hematocrit 33.1 % (37.5-50.1); Lymphocytes # 0.4 K/mcL (0.6-4.6); Lymphocytes % 3.9 %; Mean Corpuscular HGB Conc 34.4 g/dL (31.6-35.5); Mean Corpuscular Volume 89.9 fL (83.0-100.0); Mean Platelet Volume 9.8 fL (9.4-12.4); Monocytes # 0.4 K/mcL (0.0-1.3); Monocytes % 3.6 %; Neutrophils # 10.3 K/mcL (1.6-8.9); Platelet Count 277 K/mcL (140-400); Red Blood Count 3.68 M/mcL (4.19-5.50); Red Cell Distribution Width 13.1 % (11.5-14.5); Segmented Neutrophils % 91.2 %
[2018-01-30 05:45] LABS: Hemoglobin 11.4 g/dL (12.9-16.9)
[2018-01-30 07:05] LABS: Calcium 8.3 mg/dL (8.6-10.3); Magnesium 1.8 mg/dL (1.6-2.6); Potassium 6.4 mEq/L (3.5-5.1)
[2018-01-30] MEDS: Metoprolol XL (24 HR) Succ 50 MG TAB.ER.24H PO SCH (08:14)
[2018-01-30] MEDS: Aspirin 81 MG TAB.CHEW PO SCH (08:14)
[2018-01-30] MEDS ORDERED: Insulin Human Regular 10 UNIT in 0.9 % Sodium Chloride 10 ML IV ONE (08:42)
[2018-01-30] MEDS: *HR* Ticagrelor 90 MG TABLET PO SCH ×2 (08:46→20:07)
[2018-01-30] MEDS ORDERED: Metoprolol XL (24 HR) Succ 50 MG TAB.ER.24H PO SCH (09:00)
[2018-01-30] MEDS ORDERED: Aspirin 81 MG TAB.CHEW PO SCH (09:00)
--- NOTE | 2018-01-30 09:12 | Internal Med Progress Note ---
Date of Encounter: 01/30/18 Time of Encounter: 09:09 - Assessment and plan (1) Compartment syndrome of left lower extremity Current Visit: Yes Status: Acute Assessment and plan: worsening swelling and tightness in left leg, secondary to trauma. Distal pulses noted to be feeble, with elevated compartmental pressure in the ER. S/p urgent fasciotomy 01/30/[address] Lopez. Hx CAD as noted below with PCI 10/2017 ; need to cont DAPT. Site cont to ooze. Closely monitor H&H. PRN IV fentanyl, hydrocodone for pain. Cont Ancef. CK pending. Ortho following Qualifiers: Encounter type: initial encounter Qualified Code(s): T79.A22A - Traumatic compartment syndrome of left lower extremity, initial encounter (2) Type 1 diabetes Current Visit: Yes Status: Acute Assessment and plan: per hx. Uses insulin pump at home. Blood sugars uncontrolled. Received one- time dose IV insulin on 01/30 for blood sugar in 500s. Add high dose SSI, long acting insulin. Monitor blood sugar and titrate PRN. Qualifiers: Diabetes mellitus complication status: with hyperglycemia Qualified Code(s) : E10.65 - Type 1 diabetes mellitus with hyperglycemia (3) Chronic kidney disease Current Visit: Yes Status: Chronic Assessment and plan: per hx. Follows with Dr. Abarca. Renal function appeared to be at baseline on admission, now slightly worsened (scr 2.17, GFR 41). Likely secondary to hypovolemia/dehydration. Continue IV fluids. Avoid nephrotoxic agents as possible. Monitor repeat renal function. Nephrology consulted Qualifiers: Chronic kidney disease stage: stage 3 (moderate) Qualified Code(s): N18.3 - Chronic kidney disease, stage 3 (moderate) (4) Hyperkalemia Current Visit: No Status: Resolved Assessment and plan: K 6.2; in the setting of worsening renal function. Received 1 time dose IV insulin. Placed on continuous telemetry monitoring. STAT BMP pending (5) Hyponatremia Current Visit: Yes Status: Acute Assessment and plan: Na 124; suspect pseudohyponatremia secondary to hyperglycemia. Neurologically intact. Continue IV fluids. Anticipate sodium will normalize as blood sugar is controlled. Monitor repeat BMP (6) CAD (coronary artery disease) Current Visit: Yes Status: Chronic Assessment and plan: per hx. 10/2017 [facility] showed severe 3 vessel disease. S/p successful PCI with SAMINA at that time. Cont ASA, brilinta. Cardiology consulted Qualifiers: Coronary Disease-Associated Artery/Lesion type: [place] artery [place] vs. transplanted heart: [place] heart Associated angina: without angina Qualified Code(s): I25.10 - Atherosclerotic heart disease of [place] coronary artery without angina pectoris (7) HTN (hypertension) Current Visit: Yes Status: Chronic Assessment and plan: per hx. BP controlled. Cont home BP medication. Monitor BP and titrate PRN Qualifiers: Hypertension type: essential hypertension Qualified Code(s): I10 - Essential (primary) hypertension (8) DVT prophylaxis Current Visit: No Status: Acute Assessment and plan: SCD - Subjective Interval history: Seen and examined at bedside, patient is new to me. Information obtained from chart review and patient report. He is complaining of pain to left lower extremity, rates 8 out of 10. Pain medicine helps a little and activity worsens pain. Has numbness and tingling but he also reports neuropathy from diabetes. No chest pain or shortness of breath. - Constitutional Vitals: Temp Pulse Resp BP Pulse Ox 98.1 F 98 15 145/74 94 01/30/18 07:19 01/30/18 07:19 01/30/18 07:19 01/30/18 07:19 01/30/18 07:19 General appearance: Present: A&O X 3, morbidly obese, obese, answers questions appropriately - Head Head exam: Present: atraumatic, normocephalic - Eye Eye exam: Present: PERRL, conjuntiva pink, sclera anicteric Pupils: Present: PERRL - Neck Neck exam general surgery: Present: supple, trachea midline. Absent: lymphadenopathy - Respiratory Respiratory exam: Present: CTAB. Absent: accessory muscle use, rales, rhonchi, wheezes - Cardiovascular Cardiovascular exam: Present: RRR, +S1, +S2. Absent: diastolic murmur, gallop, rubs, systolic murmur - GI/Abdominal GI/Abdominal exam: Present: normal bowel sounds, soft, no peritoneal signs. Absent: distended, tenderness - Extremities Exam Extremities exam: Present: pedal edema, warm, radial pulses palpable and symmetrical. Absent: calf tenderness, cyanotic Additional comments: Left lower extremity wrapped, oozing dark red blood. - Neurological Exam Neurological exam: Present: CN II-XII intact, oriented X3, no focal deficits. Absent: pronater drift, facial droop, speech deficit - Skin Skin exam: Present: dry, intact Internal Medicine: Result - Labs CBC & Chem 7: 01/30/18 05:10 01/30/18 06:22 Labs: Short CBC 01/30/18 Range/Units 05:10 WBC 11.3 H (4.3-11.1) K/mcL Hgb 11.4 L D (12.9-16.9) g/dL Hct 33.1 L (37.5-50.1) % Plt Count 277 (140-400) K/mcL Neutrophils # 10.3 H (1.6-8.9) K/mcL BMP 01/30/18 06:22 Sodium 124 L D Potassium 6.4 H D Chloride 94 L Carbon Dioxide 22 L BUN 34 H Creatinine 2.17 H Glucose 594 H* Calcium 8.3 L - VTE Documentation of Mechanical Device: Intermittent pneumatic compression device Consult Discharge Plan - Plan Referrals: Leslie Malhotra, RESIDENTIAL INSURANCE INSPECTOR [Primary Care Provider] -
[2018-01-30] MEDS ORDERED: *HR* Ticagrelor 90 MG TABLET PO ONE (09:25)
[2018-01-30] MEDS ORDERED: 0.9 % Sodium Chloride 1,000 ML IVC SCH (10:00)
--- NOTE | 2018-01-30 10:33 | Nephrology Consult Note ---
Date of Encounter: 01/30/18 Time of Encounter: 10:31 Assessment and Plan (1) SAUL (acute kidney injury) Current Visit: No Status: Resolved SAUL on CKD stage III likely from prerenal causes. Agree with checking CK to r/o Rhabdo. The very severely elevated hyperglycemia will induce a shift of hyperkalemia and hyponatremia: recommend correcting his insulin deficiency. Hyperkalemia: likely to improve with insulin, but will also provide Kayexalat 30gm po x1, to help minimize risks As long as the hyperkalemia improves, then there is no urgent indication for [employer] today. Thank you for consulting the [facility] group. Will follow with you. (2) Hyperglycemia Current Visit: Yes Status: Acute As per primary. Yesterday, this ontributed to the hyponatremia/hyperkalemia d/t the very elevated hyperglycemia. (3) Compartment syndrome of left lower extremity Current Visit: Yes Status: Acute Appreciate Surgery Qualifiers: Encounter type: initial encounter Qualified Code(s): T79.A22A - Traumatic compartment syndrome of left lower extremity, initial encounter (4) Hyponatremia Current Visit: Yes Status: Acute See above. Likely to correct as the hyperglycemia corrects (5) Type 1 diabetes Current Visit: Yes Status: Acute As per primary Qualifiers: Diabetes mellitus complication status: with hyperglycemia Qualified Code(s) : E10.65 - Type 1 diabetes mellitus with hyperglycemia (6) HTN (hypertension) Current Visit: Yes Status: Chronic Qualifiers: Hypertension type: essential hypertension Qualified Code(s): I10 - Essential (primary) hypertension (7) Obesity (BMI 30-39.9) Current Visit: No Status: Chronic (8) Hyperkalemia Current Visit: No Status: Resolved History of Present Illness - Reason for Consult Consult date: 01/30/18 Acute Kidney Injury, hyponatremia, hyperkalemia Requesting physician: Pearl Rajan - Chief Complaint SAUL s/p fasciotomy - History of Present Illness Dennis Kilpatrick is a 37 y/o T1DM with a pmh that includes CKD who presented with leg pain that was ultimately severe enough of compartment syndrome to require an urgent fasciotomy last night. His SCr is rising today and nephrology was consulted. The pt's BG was near 600 with a pseudohyponatremia and worsened hyperkalemia. He typically requires an insulin pump, per report. He did not affirm use of NSAIDs. His primary drying rack changer is Dr. Abarca. He said that a tree that his friend cut down feel on his leg. He denied N/V/D. He said that his family is bring in his insulin pump. He did not affirm CP, diarrhea or buring urination. Past Med Surg Social Fam HX - Past Medical History Medical history: arthritis, asthma, coronary artery disease, diabetes, hyperlipidemia, hypertension, myocardial infarction, renal disease, other Psychiatric history: anxiety, depression - Past Surgical History Surgical History: appendectomy, herniorrhaphy, orthopedic, other, other - Social History Smoking Status: Current every day smoker Smokeless Tobacco Status: Yes (2 cans daily) Alcohol use: occasionally, recent Drug use: none - Family History Father Hx Family Cardiac Disorders: Yes Medications and Allergies Montelukast [Singulair] 10 mg PO DAILY 01/28/17 [History] Fluticasone/Vilanterol [Breo Ellipta 100-25 Mcg INH] 1 puff IH DAILY 04/28/17 [ History] Subcutaneous Insulin Pump [T:Slim] 0 units MC AD 04/28/17 [History] Pregabalin [Lyrica] 200 mg PO BID 06/08/17 [History] Albuterol Sulfate [Ventolin Hfa] 2 puff IH Q4H PRN 10/26/17 [History] Ipratropium/Albuterol Sulfate [Combivent Respimat Inhal [place]] 1 puff IH TID 10/02 [History] Omeprazole [PriLOSEC] 20 mg PO DAILY 10/26/17 [History] Allopurinol [Zyloprim 100 MG] 200 mg PO DAILY 10/27/17 [History] Aspirin 81 mg PO DAILY #30 tab.chew 10/27/17 [Rx] Furosemide [Lasix] 20 mg PO BID #60 tablet 10/27/17 [Rx] Ticagrelor [Brilinta] 90 mg PO BID #60 tablet 10/27/17 [Rx] Valsartan [Diovan] 160 mg PO DAILY #30 tablet 10/27/17 [Rx] Atorvastatin [Lipitor] 40 mg PO HS 01/29/18 [History] Ergocalciferol (VITAMIN D2) [Vitamin D2] 50,000 unit PO MO 01/29/18 [History] Metoprolol Succinate [Toprol Xl] 100 mg PO DAILY 01/29/18 [History] Nitroglycerin [Nitrostat] 0.4 mg SL Q5M PRN 01/29/18 [History] 3 Allergy/AdvReac Type Severity Reaction Status Date / Time Penicillins [PCN] Allergy raises Verified 01/29/18 13:53 blood sugar Review of Systems All Systems: reviewed and no additional remarkable complaints except as stated Exam - Vital Signs Vital signs: Initial Vital Signs Temp Pulse Resp BP Pulse Ox 98.5 F 96 18 127/79 95 01/29/18 13:48 01/29/18 13:48 01/29/18 13:48 01/29/18 13:48 01/29/18 13:48 Vital Signs - Last 8 Hours Temp Pulse Resp BP Pulse Ox 01/30/18 07:19 98.1 F 98 15 145/74 94 01/30/18 04:23 98.0 F 102 18 102/61 97 Intake and Output 01/29/18 01/30/18 01/30/18 23:59 07:59 15:59 Intake Total 50 / 50 410 / 410 Output Total 100 / 100 600 / 600 Balance -100 / -100 -550 / -550 410 / 410 Intake: IV Fluids 50 / 50 50 / 50 Ancef Premix DUPLEX 2,000 mg In 50 / 50 50 / 50 50 ml @ 100 mls/hr IVPB Q8HR [facility] Rx#:[id number] Oral 360 / 360 Output: Urine 600 / 600 Estimated Blood Loss 100 / 100 Other: Meal NPO Breakfast Percent of Meal Consumed 100% # Urine Diapers 1 Blood Glucose* 89 [phone] - General Appearance General appearance: well-developed, well-nourished, appears started age, obese EENT: ATNC, PERRL, mucous membranes moist Neck: supple Respiratory: clear Cardiology: edema, regular rate, regular rhythm, normal S1, normal S2 Gastrointestinal: normoactive bowel sounds, no tenderness Integumentary: erythema Additional Comments: left leg wraps were soaked with blood Neurologic: no focal deficit, no asterixis, alert and oriented x3 Musculoskeletal: no clubbing Psychiatric: mood/affect appropriate, cooperative Results - Lab Results 01/31/18 17:11 01/31/18 04:08 Most recent lab results Calcium 8.3 mg/dL (8.6-10.3) L 01/30/18 06:22 Magnesium 1.8 mg/dL (1.6-2.6) 01/30/18 06:22 I reviewed the labs, progress notes, vitals, imaging and med lists Consult Discharge Plan - Plan Referrals: Leslie Malhotra, PRACTICE ADMINISTRATOR [Primary Care Provider] -
--- NOTE | 2018-01-30 10:36 | Event Note ---
<ArianaJas Judy - Last Filed: 01/30/18 10:32> Date of Encounter: 01/30/18 Time of Encounter: 10:30 - Cardiology Event Note Discussed and reviewed with Dr. Waller, underwent left heart catheterization October 2017 with PTCA/drug-eluting stent to proximal LAD 80% lesion, PTCA/drug -eluting stent to mid LAD 70% lesion, PTCA/drug-eluting stent to proximal RCA 80 % lesion, PTCA/drug-eluting stent to mid RCA 70% lesion, PTCA/drug-eluting stent to proximal RPL 90% lesion. Has remaining mid RPL 60% lesion. Records reviewed and patient had apparent acute trauma to lower extremity with cutting down a tree and status post surgery for compartment syndrome. Cardiology asked for confirmation regarding dual antiplatelet therapy. Hemoglobin noted to be 14 down to 11. Discussed and reviewed with Dr. Waller, based on evidence-based guidelines patient to remain on aspirin/Brilinta uninterrupted for at least one year with recent stenting. Continue current regimen. No further recommendations. If develops any significant worsening anemia or blood loss please consult cardiology for reevaluation and can re- evaluate. Primary service notified. <Brandon Waller - Last Filed: 01/30/18 22:21> Date of Encounter: 01/30/18 - Cardiology Event Note I have personally performed a face to face evaluation on this patient. I have reviewed and agree with the care plan. History and Exam by me shows: 37-year-old male status post PCI to his RCA and LAD with recent trauma here for surgery after developing compartment syndrome. In regards to his dual antiplatelet therapy we do recommend continuing both unless significant blood loss or worsening anemia. Patient would benefit from continuing on aspirin alone if Brilinta is stopped. This is in the setting of worsening anemia and blood loss. Please contact cardiology if there is a growing concern in regards to blood loss and anemia for a reevaluation.
[2018-01-30] MEDS ORDERED: *HR* FentaNYL (PF) 100 MCG/2 ML VIAL IVP ONE ×2 (11:01→15:29)
[2018-01-30 11:10] LABS: Hemoglobin 10.5 g/dL (12.9-16.9)
[2018-01-30] MEDS: 0.9 % Sodium Chloride 1,000 ML IVC SCH ×2 (11:20→20:09)
[2018-01-30 11:37] LABS: Calcium 8.3 mg/dL (8.6-10.3); Potassium 6.4 mEq/L (3.5-5.1)
[2018-01-30 14:13] LABS: Bilirubin,Urine Negative (Negative); Blood,Urine Negative (Negative); Clarity,Urine Clear (Clear); Color,Urine Yellow (Yellow); Glucose,Urine (UA) >=1000 mg/dL (Normal); Ketones,Urine Negative (Negative); Leukocyte Esterase,Urine Negative (Negative); Nitrite,Urine Negative (Negative); Protein,Urine 100 mg/dL (Neg-Trace); Specific Gravity,Urine 1.027 (1.010-1.025); Urobilinogen,Urine Normal (Normal)
[2018-01-30 14:15] LABS: Bacteria,Urine None Seen per hpf (None-Few); Hyaline Casts,Urine None Seen per lpf (None-Few); RBC,Urine 0-3 per hpf (0-3); Squamous Epithelial Cell,Urine Moderate per lpf (None-Few); WBC,Urine 0-3 per hpf (0-3)
[2018-01-30] MEDS: *HR* FentaNYL (PF) 100 MCG/2 ML VIAL IVP PRN ×2 (14:29→20:08)
[2018-01-30 15:56] LABS: Potassium,Urine 29.6 mEq/L; Sodium, Urine 25.4 mEq/L
--- NOTE | 2018-01-30 16:01 | Orthopedics Progress Note ---
Date of Encounter: 01/30/18 Time of Encounter: 15:58 - Assessment and Plan (1) Compartment syndrome of left lower extremity Current Visit: Yes Status: Acute The patient has a subacute developing compartment syndrome as been developing past 5 days. Since he is on the rilinta, is probably significant bleeding into the leg. He will be taken for emergent fasciotomies of the left leg. Informed consent was obtained. We will also check compartment pressures of his foot intraoperatively. Qualifiers: Encounter type: initial encounter Qualified Code(s): T79.A22A - Traumatic compartment syndrome of left lower extremity, initial encounter Subjective Principal diagnosis: Left leg and foot compartment syndrome Interval history: Patient's been controlled, however significant pain with dressing changes Left lower extremity: Dressings were changed ready and a currently blood soaked again. The dressings were taken down, with significant blood in dressings The leg is still swollen but compartments are soft. Able to move his toes passively without pain I closed the medial calcaneal incision as well as the dorsal medial foot incision. The wounds still open on his legs with still significant swelling, unable to close down the sutures. Postoperative day #1, improvement status post releases still very swollen. Patient has acute postoperative blood loss anemia Nephrology and cardiology input appreciated We attempted to put a wound VAC on, but that was too much bleeding Continue dry dressings, continue elevation and ice Close monitoring of H/H Objective Vital signs: Vital Signs Temp Pulse Resp BP Pulse Ox 01/30/18 15:16 98.4 F 77 16 142/74 91 01/30/18 11:52 98.8 F 95 16 123/56 93 01/30/18 07:19 98.1 F 98 15 145/74 94 01/30/18 04:23 98.0 F 102 18 102/61 97 01/29/18 23:36 98.7 F 97 16 148/74 95 01/29/18 23:10 96 01/29/18 22:21 97.4 F L 103 24 117/64 96 01/29/18 21:55 97.9 F 96 24 107/68 94 01/29/18 21:36 97.5 F L 106 24 87 01/29/18 21:09 90 20 107/78 96 01/29/18 21:05 97.2 F L 92 20 105/65 94 01/29/18 20:55 97.0 F L 89 20 106/69 96 01/29/18 20:45 96 18 109/71 95 01/29/18 20:35 92 20 118/86 96 01/29/18 20:25 90 120 120/78 96 01/29/18 20:15 97.4 F L 109 20 133/95 97 Intake and Output 01/29/18 01/30/18 01/30/18 23:59 07:59 15:59 Intake Total 50 / 50 650 / 650 Output Total 100 / 100 600 / 600 250 / 250 Balance -100 / -100 -550 / -550 400 / 400 Intake: IV Fluids 50 / 50 50 / 50 Ancef Premix DUPLEX 2,000 mg In 50 / 50 50 / 50 50 ml @ 100 mls/hr IVPB Q8HR [facility] Rx#:[id number] Oral 600 / 600 Output: Urine 600 / 600 250 / 250 Estimated Blood Loss 100 / 100 Other: Meal NPO Lunch Percent of Meal Consumed 100% # Urine Diapers 1 Blood Glucose* 89 551 525 - Labs CBC & BMP: 01/30/18 10:55 01/30/18 10:55 Labs: Abnormal lab results WBC 11.3 K/mcL (4.3-11.1) H 01/30/18 05:10 RBC 3.68 M/mcL (4.19-5.50) L 01/30/18 05:10 Hgb 10.5 g/dL (12.9-16.9) L 01/30/18 10:55 Hct 31.0 % (37.5-50.1) L 01/30/18 10:55 Neutrophils # 10.3 K/mcL (1.6-8.9) H 01/30/18 05:10 Lymphocytes # 0.4 K/mcL (0.6-4.6) L 01/30/18 05:10 Sodium 122 mEq/L (136-145) L 01/30/18 10:55 Potassium 6.4 mEq/L (3.5-5.1) H 01/30/18 10:55 Chloride 90 mEq/L (98-107) L 01/30/18 10:55 BUN 38 mg/dL (6-20) H 01/30/18 10:55 Creatinine 2.31 mg/dL (0.70-1.30) H 01/30/18 10:55 Est GFR ( Amer) 39 (> 60) L 01/30/18 10:55 Est GFR (Non-Af Amer) 32 (> 60) L 01/30/18 10:55 Glucose 606 mg/dL (70-105) H* 01/30/18 10:55 POC Glucose 330 (58-89) H 01/30/18 00:29 Calcium 8.3 mg/dL (8.6-10.3) L 01/30/18 10:55 Creatine Kinase 232 Units/L (30-223) H 01/30/18 10:55 Ur Specific [place] 1.027 (1.010-1.025) H 01/30/18 13:35 Urine Protein 100 mg/dL (Neg-Trace) H 01/30/18 13:35 Urine Glucose (UA) >=1000 mg/dL (Normal) H 01/30/18 13:35 Ur Squamous Epith Cells Moderate per lpf (None-Few) H 01/30/18 13:35 - VTE Documentation of Mechanical Device: Intermittent pneumatic compression device Consult Discharge Plan - Plan Referrals: Leslie Malhotra, IMMIGRATION ATTORNEY [Primary Care Provider] -
[2018-01-30 17:43] LABS: Hemoglobin 9.4 g/dL (12.9-16.9)
[2018-01-30 18:04] LABS: Calcium 8.4 mg/dL (8.6-10.3); Potassium 4.7 mEq/L (3.5-5.1)
[2018-01-30] MEDS ORDERED: Insulin LISPRO 300 UNITS/3 ML VIAL SQ SCH (21:00)
[2018-01-30 21:59] LABS: Hemoglobin 8.9 g/dL (12.9-16.9)
[2018-01-30] MEDS ORDERED: Insulin LISPRO 300 UNITS/3 ML VIAL SQ ONE (22:47)
[2018-01-30] MEDS ORDERED: Furosemide 20 MG/2 ML VIAL IVP PRN (23:52)
[2018-01-31] MEDS: *HR* FentaNYL (PF) 100 MCG/2 ML VIAL IVP PRN ×2 (00:34→14:59)
[2018-01-31] MEDS: CeFAZolin Premix DUPLEX 2,000 MG/50 ML BAG IVPB SCH ×3 (00:35→15:37)
[2018-01-31] MEDS ORDERED: Ipratropium/Albuterol Neb 3 ML IH PRN (00:54)
[2018-01-31] MEDS ORDERED: 0.9 % Sodium Chloride 250 ML ONE ×2 (02:43→06:35)
[2018-01-31 05:24] LABS: Calcium 8.3 mg/dL (8.6-10.3); Phosphorous 4.5 mg/dL (2.7-4.5); Potassium 4.3 mEq/L (3.5-5.1)
[2018-01-31] MEDS: Aspirin 81 MG TAB.CHEW PO SCH (08:01)
[2018-01-31] MEDS: *HR* Ticagrelor 90 MG TABLET PO SCH ×2 (08:01→19:56)
[2018-01-31] MEDS: Metoprolol XL (24 HR) Succ 50 MG TAB.ER.24H PO SCH (08:07)
--- NOTE | 2018-01-31 08:56 | Internal Med Progress Note ---
Date of Encounter: 01/31/18 Time of Encounter: 08:54 - Assessment and plan (1) Compartment syndrome of left lower extremity Current Visit: Yes Status: Acute Assessment and plan: presented with 5 day hx of worsening left lower leg pain, swelling and tightness (secondary to trauma; tree landed on left leg while at work). Distal pulses found to be feeble, with elevated compartmental pressure in the ER. No evidence of rhabdomyolysis; CK 282. S/p urgent fasciotomy 01/30/[address] Lopez. Hx CAD as noted below with PCI 10/2017; need to cont DAPT. Site cont to ooze. Hgb 8.9 on 01/31/18; received 2 units PRBC. Closely monitor H&H. PRN IV fentanyl, hydrocodone for pain. Cont Ancef. Ortho following Qualifiers: Encounter type: initial encounter Qualified Code(s): T79.A22A - Traumatic compartment syndrome of left lower extremity, initial encounter (2) Postoperative anemia due to acute blood loss Current Visit: Yes Status: Acute Assessment and plan: Hgb 14.9 on admission and dropped to 8.9 postoperatively. Post operative anemia due to acute blood loss in the setting of DAPT. Hemodynamically stable. No tachycardia or hypotension. Need to continue dual antiplatelet therapy with recent stents. Closely monitor repeat H&H. Transfuse for Hgb less than 8. We consult cardiology for reevaluation of dual antiplatelet therapy of anemia and/ or acute blood loss persist (3) CAD (coronary artery disease) Current Visit: Yes Status: Chronic Assessment and plan: per hx. 10/2017 C showed severe 3 vessel disease. S/p successful PCI with 5 SAMINA at that time. Evaluated by Cardiology who confirmed the need to continue DAPT at this time. Hgb dropped to 8.9 on 01/31/18; status post 2 units PRBC. Monitor repeat H&H and bleeding. Reconsult cardiology for re-evaluation of worsening edema or acute blood loss persists. Qualifiers: Coronary Disease-Associated Artery/Lesion type: [place] artery [place] vs. transplanted heart: [place] heart Associated angina: without angina Qualified Code(s): I25.10 - Atherosclerotic heart disease of [place] coronary artery without angina pectoris (4) Type 1 diabetes Current Visit: Yes Status: Acute Assessment and plan: per hx. Uses insulin pump at home. Blood sugars uncontrolled on admission (in the 600s; secondary to not having insulin pump). Received one-time dose IV insulin. Blood sugar significantly improved now that he has insulin pump from home. Monitor blood sugar. Hgb A1c pending Qualifiers: Diabetes mellitus complication status: with hyperglycemia Qualified Code(s) : E10.65 - Type 1 diabetes mellitus with hyperglycemia (5) Chronic kidney disease Current Visit: Yes Status: Chronic Assessment and plan: per hx. Follows with Dr. Abarca. Renal function appeared to be at baseline on admission, now slightly worsened (scr 2.17, GFR 41). Likely secondary to hypovolemia/dehydration. Renal function improving with IV fluids. Avoid nephrotoxic agents as possible. Monitor repeat renal function. Nephrology following. Qualifiers: Chronic kidney disease stage: stage 3 (moderate) Qualified Code(s): N18.3 - Chronic kidney disease, stage 3 (moderate) (6) Hyperkalemia Current Visit: No Status: Resolved Assessment and plan: K 6.2; in the setting of worsening renal function. K normalized with 1 time dose IV insulin, Kayexalate. Monitor electrolytes with daily BMPs (7) Hyponatremia Current Visit: Yes Status: Acute Assessment and plan: Na 124; suspect pseudohyponatremia secondary to hyperglycemia. Remained neurologically intact. Sodium normalizing as glucose is better controlled. Monitor electrolytes with daily BMPs (8) HTN (hypertension) Current Visit: Yes Status: Chronic Assessment and plan: per hx. BP controlled. Cont home BP medication. Monitor BP and titrate PRN Qualifiers: Hypertension type: essential hypertension Qualified Code(s): I10 - Essential (primary) hypertension (9) DVT prophylaxis Current Visit: No Status: Acute Assessment and plan: SCD - Subjective Interval history: Seen and examined at bedside. Sitting up on edge of bed, says he feels significantly improved from yesterday. Still with left lower leg pain however ( currently 7/10, described as sharp and burning, worse with activity). LLE pain improved with pain medicine and worse with activity. He also reports numbness and tingling which he says is somewhat chronic due to neuropathy however slightly worse than baseline. He has been nonweightbearing to left leg. Tolerating second unit of PRBC without) difficulty. He tells me Ortho is planning on taking him back to OR later today. - Constitutional Vitals: Temp Pulse Resp BP Pulse Ox 97.7 F 73 16 120/72 100 01/31/18 06:58 01/31/18 06:58 01/31/18 06:58 01/31/18 08:05 01/31/18 06:58 General appearance: Present: A&O X 3, morbidly obese, obese, answers questions appropriately - Head Head exam: Present: atraumatic, normocephalic - Eye Eye exam: Present: PERRL, conjuntiva pink, sclera anicteric Pupils: Present: PERRL - Neck Neck exam general surgery: Present: supple, trachea midline. Absent: lymphadenopathy - Respiratory Respiratory exam: Present: CTAB. Absent: accessory muscle use, rales, rhonchi, wheezes - Cardiovascular Cardiovascular exam: Present: RRR, +S1, +S2. Absent: diastolic murmur, gallop, rubs, systolic murmur - GI/Abdominal GI/Abdominal exam: Present: normal bowel sounds, soft, no peritoneal signs. Absent: distended, tenderness - Extremities Exam Extremities exam: Present: pedal edema, warm, radial pulses palpable and symmetrical. Absent: calf tenderness, cyanotic Additional comments: Bilateral lower extremities with trace, nonpitting edema. Left lower leg with bulky dressing intact, scant shadowing - Neurological Exam Neurological exam: Present: CN II-XII intact, oriented X3, no focal deficits. Absent: pronater drift, facial droop, speech deficit - Skin Skin exam: Present: dry, intact Internal Medicine: Result - Labs CBC & Chem 7: 01/30/18 21:38 01/31/18 04:08 Labs: Short CBC 01/30/18 01/30/18 01/30/18 Range/Units 10:55 17:29 21:38 Hgb 10.5 L 9.4 L 8.9 L (12.9-16.9) g/dL Hct 31.0 L 28.0 L 26.0 L (37.5-50.1) % BMP 01/30/18 01/30/18 01/31/18 10:55 17:29 04:08 Sodium 122 L 126 L 133 L Potassium 6.4 H 4.7 D 4.3 Chloride 90 L 93 L 100 Carbon Dioxide 26 27 29 BUN 38 H 42 H 42 H Creatinine 2.31 H 2.18 H 1.83 H Glucose 606 H* 414 H 198 H Calcium 8.3 L 8.4 L 8.3 L Liver Function 01/31/18 Range/Units 04:08 Albumin 3.0 L (3.5-5.7) g/dL Urine 01/30/18 Range/Units 13:35 Urine Color Yellow (Yellow) Urine Clarity Clear (Clear) Urine pH 6.0 (5.0-8.0) pH Units Ur Specific [place] 1.027 H (1.010-1.025) Urine Protein 100 H (Neg-Trace) mg/dL Urine Glucose (UA) >=1000 H (Normal) mg/dL - VTE Documentation of Mechanical Device: Intermittent pneumatic compression device Consult Discharge Plan - Plan Referrals: Leslie Malhotra, SENIOR SQL SERVER DATABASE DEVELOPER [Primary Care Provider] -
[2018-01-31] MEDS: 0.9 % Sodium Chloride 1,000 ML IVC SCH ×2 (09:25→22:17)
[2018-01-31] MEDS: *HR* HYDROcodone/Acet 5/325 mg TABLET PO PRN ×2 (10:23→19:56)
--- NOTE | 2018-01-31 10:57 | Nephrology Progress Note ---
Date of Encounter: 01/31/18 Time of Encounter: 10:30 - Assessment and Plan (1) SAUL (acute kidney injury) Current Visit: No Status: Resolved SAUL on CKD stage III, and he is nearly back to his baseline level of CKD stage III The hyperkalemia and pseudohyponatremia was from the DKA/HHS level of hyperglycemia, which seems to be improving as well. No need for HD. Avoid nephrotoxins as able such as NSAIDs, IV contrast, Bactrim. Strict I/Os and daily weights. Will follow with you. (2) Compartment syndrome of left lower extremity Current Visit: Yes Status: Acute As per surgery Qualifiers: Encounter type: initial encounter Qualified Code(s): T79.A22A - Traumatic compartment syndrome of left lower extremity, initial encounter (3) Hyponatremia Current Visit: Yes Status: Acute Improved. Hyperglycemia was better controlled during the time of the AM labs, which led to near resolution of the pseudohyponatremia (4) HTN (hypertension) Current Visit: Yes Status: Chronic Will monitor. Hold any MICKEY or ARB during the timing of the SAUL Qualifiers: Hypertension type: essential hypertension Qualified Code(s): I10 - Essential (primary) hypertension (5) Hyperkalemia Current Visit: No Status: Resolved Improved. Subjective Principal diagnosis: Left leg and foot compartment syndrome Interval history: He was s/e and did not affirm N/V/D and voiced that he felt better today. He was wearing his insulin pump. The floor RN was present during my exam/ interview. Objective - Vital Signs Vital signs: Vital Signs Temp Pulse Resp BP Pulse Ox 01/31/18 09:22 98.5 F 75 17 127/74 93 01/31/18 08:05 120/72 01/31/18 06:58 97.7 F 73 16 111/64 100 01/31/18 06:43 97.7 F 74 16 104/57 98 01/31/18 06:19 97.9 F 74 17 125/67 98 01/31/18 05:01 97.7 F 78 19 109/50 100 01/31/18 03:22 97.7 F 73 18 109/50 100 01/31/18 03:07 98.0 F 71 18 152/74 96 01/31/18 01:05 18 94 01/30/18 23:36 98.6 F 89 17 147/76 93 01/30/18 22:20 98.9 F 77 19 144/89 94 01/30/18 15:16 98.4 F 77 16 142/74 91 01/30/18 11:52 98.8 F 95 16 123/56 93 Intake and Output 01/30/18 01/31/18 01/31/18 23:59 07:59 15:59 Intake Total 1050 / 1050 250 / 250 350 / 350 Output Total 1150 / 1150 1800 / 1800 Balance -100 / -100 250 / 250 -1450 / -1450 Intake: IV Fluids 1050 / 1050 50 / 50 50 / 50 0.9 % Sodium Chloride 1,000 ML 1000 / 1000 @ 150 mls/hr IVC .Q6H40M [facility] Rx #:[id number] Ancef Premix DUPLEX 2,000 mg In 50 / 50 50 / 50 50 / 50 50 ml @ 100 mls/hr IVPB Q8HR [facility] Rx#:[id number] Blood Product 200 / 200 300 / 300 Rbcs Leuko Poor As-1 Unit 200 / 200 [id number] Rbcs Leuko Poor As-1 Unit 0 / 0 300 / 300 [id number] Output: Urine 1150 / 1150 1800 / 1800 Other: Meal Dinner Percent of Meal Consumed 95% Weight 116.687 kg Blood Glucose* 386 206 Patient Weight 01/31/18 23:59 Weight 116.687 kg - General Appearance General appearance: Present: well-developed, well-nourished, appears started age EENT: Present: ATNC, PERRL, mucous membranes moist Neck: Present: supple Respiratory: Present: clear, rhonchi (RLL) Cardiology: Present: no edema, regular rate, regular rhythm, normal S1, normal S2 Gastrointestinal: Present: normoactive bowel sounds, no tenderness, no guarding , obese Additional Comments: left leg dressings were C/D/I Neurologic: Present: no focal deficit, no asterixis, alert and oriented x3 Musculoskeletal: Present: no cyanosis, no clubbing Psychiatric: Present: mood/affect appropriate, cooperative - Lab 01/31/18 17:11 01/31/18 04:08 Most recent lab results Calcium 8.3 mg/dL (8.6-10.3) L 01/31/18 04:08 Phosphorus 4.5 mg/dL (2.7-4.5) 01/31/18 04:08 Magnesium 1.8 mg/dL (1.6-2.6) 01/30/18 06:22 Urine Sodium 25.4 mEq/L 01/30/18 13:35 - VTE Documentation of Mechanical Device: Intermittent pneumatic compression device Consult Discharge Plan - Plan Referrals: Leslie Malhotra, MANAGER FLOAT [Primary Care Provider] -
[2018-01-31 12:02] LABS: Estimated Average Glucose 232 mg/dl; Hemoglobin A1C 9.7 %
--- NOTE | 2018-01-31 12:56 | Event Note ---
Date of Encounter: 01/31/18 Time of Encounter: 12:54 Patient was transfused 2 U PRBC overnight Still active bleeding with dressing today Will take to the OR to try to reduce oozing, possible closure. Possible grafting.
[2018-01-31 17:23] LABS: Hematocrit 28.8 % (37.5-50.1); Hemoglobin 9.5 g/dL (12.9-16.9)
--- NOTE | 2018-01-31 17:24 | Orthopedics Progress Note ---
Date of Encounter: 01/31/18 Time of Encounter: 17:22 - Assessment and Plan (1) Compartment syndrome of left lower extremity Current Visit: Yes Status: Acute The patient has a subacute developing compartment syndrome as been developing past 5 days. Since he is on the rilinta, is probably significant bleeding into the leg. He will be taken for emergent fasciotomies of the left leg. Informed consent was obtained. We will also check compartment pressures of his foot intraoperatively. Qualifiers: Encounter type: initial encounter Qualified Code(s): T79.A22A - Traumatic compartment syndrome of left lower extremity, initial encounter Subjective Principal diagnosis: Left leg and foot compartment syndrome Interval history: Patient's pain is being controlled, however significant pain with dressing changes The patient's was good drop arm today but he just drank a [place]. Left lower extremity: Dressings were changed ready- minimal blood soaked The dressings were taken down, the lateral wound still swollen positioned minimal bruising, mild oozing coming from the medial wound also swollen The leg is still swollen but compartments are soft. Able to move his toes passively without pain Avitene was placed over the exposed wounds. Bulky dressings were applied Postoperative day #2, improvement status post releases still very swollen. Patient has acute postoperative blood loss anemia Nephrology and cardiology input appreciated Continue dry dressings, continue elevation and ice Most likely will require grafting. Close monitoring of H/H Objective Vital signs: Vital Signs Temp Pulse Resp BP Pulse Ox 01/31/18 15:41 98.1 F 94 16 121/74 94 01/31/18 11:36 98.1 F 76 16 123/73 97 01/31/18 09:22 98.5 F 75 17 127/74 93 01/31/18 08:05 120/72 01/31/18 06:58 97.7 F 73 16 111/64 100 01/31/18 06:43 97.7 F 74 16 104/57 98 01/31/18 06:19 97.9 F 74 17 125/67 98 01/31/18 05:01 97.7 F 78 19 109/50 100 01/31/18 03:22 97.7 F 73 18 109/50 100 01/31/18 03:07 98.0 F 71 18 152/74 96 01/31/18 01:05 18 94 01/30/18 23:36 98.6 F 89 17 147/76 93 01/30/18 22:20 98.9 F 77 19 144/89 94 Intake and Output 01/31/18 01/31/18 01/31/18 07:59 15:59 23:59 Intake Total 250 / 250 350 / 350 Output Total 2400 / 2400 650 / 650 Balance 250 / 250 -2050 / -2050 -650 / -650 Intake: IV Fluids 50 / 50 50 / 50 Ancef Premix DUPLEX 2,000 mg In 50 / 50 50 / 50 50 ml @ 100 mls/hr IVPB Q8HR COUNT INCLUDES THE [facility] Rx#:[id number] Blood Product 200 / 200 300 / 300 Rbcs Leuko Poor As-1 Unit 200 / 200 [id number] Rbcs Leuko Poor As-1 Unit 0 / 0 300 / 300 [id number] Output: Urine 2400 / 2400 650 / 650 Other: Weight 116.687 kg Blood Glucose* 206 73 77 Patient Weight 01/31/18 23:59 Weight 116.687 kg - Labs CBC & BMP: 01/30/18 21:38 01/31/18 04:08 Labs: Abnormal lab results WBC 11.3 K/mcL (4.3-11.1) H 01/30/18 05:10 RBC 3.68 M/mcL (4.19-5.50) L 01/30/18 05:10 Hgb 8.9 g/dL (12.9-16.9) L 01/30/18 21:38 Hct 26.0 % (37.5-50.1) L 01/30/18 21:38 Neutrophils # 10.3 K/mcL (1.6-8.9) H 01/30/18 05:10 Lymphocytes # 0.4 K/mcL (0.6-4.6) L 01/30/18 05:10 Sodium 133 mEq/L (136-145) L 01/31/18 04:08 BUN 42 mg/dL (6-20) H 01/31/18 04:08 Creatinine 1.83 mg/dL (0.70-1.30) H 01/31/18 04:08 Est GFR ( Amer) 50 (> 60) L 01/31/18 04:08 Est GFR (Non-Af Amer) 42 (> 60) L 01/31/18 04:08 Glucose 198 mg/dL (70-105) H 01/31/18 04:08 Hemoglobin A1c 9.7 % (-5.6) H 01/30/18 21:38 Calcium 8.3 mg/dL (8.6-10.3) L 01/31/18 04:08 Albumin 3.0 g/dL (3.5-5.7) L 01/31/18 04:08 Ur Specific [place] 1.027 (1.010-1.025) H 01/30/18 13:35 Urine Protein 100 mg/dL (Neg-Trace) H 01/30/18 13:35 Urine Glucose (UA) >=1000 mg/dL (Normal) H 01/30/18 13:35 Ur Squamous Epith Cells Moderate per lpf (None-Few) H 01/30/18 13:35 - VTE Documentation of Mechanical Device: Intermittent pneumatic compression device Consult Discharge Plan - Plan Referrals: Leslie Malhotra, RESIDENTIAL INSTALLER [Primary Care Provider] -
[2018-01-31] MEDS ORDERED: Insulin LISPRO 300 UNITS/3 ML VIAL SQ ONE (22:20)
[2018-02-01] MEDS: CeFAZolin Premix DUPLEX 2,000 MG/50 ML BAG IVPB SCH ×4 (01:14→23:49)
[2018-02-01] MEDS: *HR* FentaNYL (PF) 100 MCG/2 ML VIAL IVP PRN ×3 (01:17→22:11)
[2018-02-01 06:34] LABS: Hemoglobin 9.1 g/dL (12.9-16.9); Immature Platelets 1.9 % (1.1-6.1); Mean Corpuscular HGB Conc 32.5 g/dL (31.6-35.5); Mean Corpuscular Hemoglobin 30.2 pg (28.0-33.3); Mean Platelet Volume 9.6 fL (9.4-12.4); Red Blood Count 3.01 M/mcL (4.19-5.50); Red Cell Distribution Width 14.3 % (11.5-14.5)
[2018-02-01 06:45] LABS: BUN/Creatinine Ratio 23 (6-26); Blood Urea Nitrogen 31 mg/dL (6-20); Calcium 8.7 mg/dL (8.6-10.3); Carbon Dioxide 30 mEq/L (23-29); Chloride 104 mEq/L (98-107); Glucose 152 mg/dL (70-105); Osmolality,Calculated 294 (280-300); Potassium 4.1 mEq/L (3.5-5.1); Sodium 137 mEq/L (136-145); eGFR For African Americans > 60 (> 60); eGFR For Non-African Americans > 60 (> 60)
--- NOTE | 2018-02-01 07:20 | Event Note ---
Date of Encounter: 02/01/18 Time of Encounter: 07:19 Nephrology Chart Review SAUL appears prerenal and is nicely rebounding with IVF, so will sign-off. His SCr has shown trends of improvement and he is now back to his baseline of CKD stage II-IIIa. Thank you for having consulted the [facility]. Please feel free to call or page us with any questions.
[2018-02-01] MEDS: *HR* HYDROcodone/Acet 5/325 mg TABLET PO PRN ×2 (07:27→23:49)
[2018-02-01] MEDS: *HR* Ticagrelor 90 MG TABLET PO SCH ×2 (07:42→22:07)
[2018-02-01] MEDS: Metoprolol XL (24 HR) Succ 50 MG TAB.ER.24H PO SCH (07:42)
[2018-02-01] MEDS: Aspirin 81 MG TAB.CHEW PO SCH (07:42)
[2018-02-01] MEDS: 0.9 % Sodium Chloride 1,000 ML IVC SCH (11:55)
--- NOTE | 2018-02-01 12:44 | Internal Med Progress Note ---
Date of Encounter: 02/01/18 Time of Encounter: 12:41 - Assessment and plan (1) Compartment syndrome of left lower extremity Current Visit: Yes Status: Acute Assessment and plan: presented with 5 day hx of worsening left lower leg pain, swelling and tightness (secondary to trauma; tree landed on left leg while at work). Distal pulses found to be feeble, with elevated compartmental pressure in the ER. No evidence of rhabdomyolysis; CK 282. S/p urgent fasciotomy 01/30/[address] Lopez. Hx CAD as noted below with PCI 10/2017; need to cont DAPT. Site cont to ooze. Hgb 8.9 on 01/31/18; received 2 units PRBC. Closely monitor H&H. PRN IV fentanyl, hydrocodone for pain. Cont Ancef. Ortho following. Defer bearing and mobility status to Ortho Qualifiers: Encounter type: initial encounter Qualified Code(s): T79.A22A - Traumatic compartment syndrome of left lower extremity, initial encounter (2) Postoperative anemia due to acute blood loss Current Visit: Yes Status: Acute Assessment and plan: Hgb 14.9 on admission and dropped to 8.9 postoperatively. Post operative anemia due to acute blood loss in the setting of DAPT. Hemodynamically stable. No tachycardia or hypotension. Need to continue dual antiplatelet therapy with recent stents. /Closely monitor repeat H&H. Transfuse for Hgb less than 8. Hgb 9.1 02/01/18 (3) CAD (coronary artery disease) Current Visit: Yes Status: Chronic Assessment and plan: per hx. 10/2017 C showed severe 3 vessel disease. S/p successful PCI with 5 SAMINA at that time. Evaluated by Cardiology who confirmed the need to continue DAPT at this time. Hgb dropped to 8.9 on 01/31/18; status post 2 units PRBC. Monitor repeat H&H and bleeding. Reconsult cardiology for re-evaluation of worsening edema or acute blood loss persists. Qualifiers: Coronary Disease-Associated Artery/Lesion type: [place] artery [place] vs. transplanted heart: [place] heart Associated angina: without angina Qualified Code(s): I25.10 - Atherosclerotic heart disease of [place] coronary artery without angina pectoris (4) Type 1 diabetes Current Visit: Yes Status: Acute Assessment and plan: per hx. Hgb A1c 9.7%. Uses insulin pump at home. Blood sugars uncontrolled on admission (in the 600s; secondary to not having insulin pump). Received one- time dose IV insulin. Blood sugar significantly improved now that he has insulin pump from home. Monitor blood sugar. Qualifiers: Diabetes mellitus complication status: with hyperglycemia Qualified Code(s) : E10.65 - Type 1 diabetes mellitus with hyperglycemia (5) Chronic kidney disease Current Visit: Yes Status: Chronic Assessment and plan: per hx. Follows with Dr. Abarca. Renal function appeared to be at baseline on admission, now slightly worsened (scr 2.17, GFR 41). Likely secondary to hypovolemia/dehydration. Renal function improving with IV fluids. Avoid nephrotoxic agents as possible. Monitor repeat renal function. Nephrology followed Qualifiers: Chronic kidney disease stage: stage 3 (moderate) Qualified Code(s): N18.3 - Chronic kidney disease, stage 3 (moderate) (6) Hyperkalemia Current Visit: No Status: Resolved Assessment and plan: K 6.2; in the setting of worsening renal function. K normalized with 1 time dose IV insulin, Kayexalate. Monitor electrolytes with daily BMPs (7) Hyponatremia Current Visit: Yes Status: Acute Assessment and plan: Na 124; suspect pseudohyponatremia secondary to hyperglycemia. Remained neurologically intact. Sodium normalizing as glucose is better controlled. Monitor electrolytes with daily BMPs (8) HTN (hypertension) Current Visit: Yes Status: Chronic Assessment and plan: per hx. BP controlled. Cont home BP medication. Monitor BP and titrate PRN Qualifiers: Hypertension type: essential hypertension Qualified Code(s): I10 - Essential (primary) hypertension (9) DVT prophylaxis Current Visit: No Status: Acute Assessment and plan: SCD - Subjective Interval history: Seen and examined at bedside. Overall says he feels okay. Had some nausea this morning and did not eat much breakfast. No abdominal pain, no vomiting or diarrhea. Says pain to left lower leg is tolerable as long distress and is not being change. Advised him to take as needed oral pain medication on a consistent basis and to utilize IV pain medication for breakthrough pain. No chest pain or shortness of breath. - Constitutional Vitals: Temp Pulse Resp BP Pulse Ox 98.3 F 99 17 147/75 94 02/01/18 11:46 02/01/18 11:46 02/01/18 11:46 02/01/18 11:46 02/01/18 11:46 General appearance: Present: A&O X 3, morbidly obese, obese, answers questions appropriately - Head Head exam: Present: atraumatic, normocephalic - Eye Eye exam: Present: PERRL, conjuntiva pink, sclera anicteric Pupils: Present: PERRL - Neck Neck exam general surgery: Present: supple, trachea midline. Absent: lymphadenopathy - Respiratory Respiratory exam: Present: CTAB. Absent: accessory muscle use, rales, rhonchi, wheezes - Cardiovascular Cardiovascular exam: Present: RRR, +S1, +S2. Absent: diastolic murmur, gallop, rubs, systolic murmur - GI/Abdominal GI/Abdominal exam: Present: normal bowel sounds, soft, no peritoneal signs. Absent: distended, tenderness - Extremities Exam Extremities exam: Present: pedal edema, warm, radial pulses palpable and symmetrical. Absent: calf tenderness, cyanotic Additional comments: Bilateral lower extremity nonpitting edema. Left lower leg with bulky dressing in place. - Neurological Exam Neurological exam: Present: CN II-XII intact, oriented X3, no focal deficits. Absent: pronater drift, facial droop, speech deficit - Skin Skin exam: Present: dry, intact Internal Medicine: Result - Labs CBC & Chem 7: 02/01/18 04:18 02/01/18 04:18 Labs: Short CBC 01/31/18 02/01/18 Range/Units 17:11 04:18 WBC 5.9 (4.3-11.1) K/mcL Hgb 9.5 L 9.1 L (12.9-16.9) g/dL Hct 28.8 L 28.0 L (37.5-50.1) % Plt Count 237 (140-400) K/mcL BMP 02/01/18 04:18 Sodium 137 Potassium 4.1 Chloride 104 Carbon Dioxide 30 H BUN 31 H Creatinine 1.32 H Glucose 152 H Calcium 8.7 - VTE Documentation of Mechanical Device: Intermittent pneumatic compression device Consult Discharge Plan - Plan Referrals: Leslie Malhotra, RECEPTIONIST TELEPHONE OPERATOR [Primary Care Provider] -
--- NOTE | 2018-02-01 17:28 | Orthopedics Progress Note ---
Date of Encounter: 02/01/18 Time of Encounter: 13:55 - Assessment and Plan (1) Compartment syndrome of left lower extremity Current Visit: Yes Status: Acute Continue to ice and elevate LLE. Dressings changed today. Avitene left in place. Hgb today 9.1 He did receive 2 unit RBC yesterday, hospitalist managing. Pain control per hospitalist. Plan for return to OR tomorrow for possible closure of wounds or skin grafts. May have clear diet for breakfast tomorrow. NPO after that. Qualifiers: Encounter type: initial encounter Qualified Code(s): T79.A22A - Traumatic compartment syndrome of left lower extremity, initial encounter Subjective Principal diagnosis: POD#3 s/p LLE faciotomies to leg and foot 01/29/18 Interval history: Patient doing well today with no concerns. Pain is tolerable except during dressing changes but improving. Denies any calf pain or n/t. No events overnight. He did receive 2 units rbc yesterday. Objective Vital signs: Vital Signs Temp Pulse Resp BP Pulse Ox 02/01/18 16:10 97.4 F L 96 17 146/79 96 02/01/18 11:46 98.3 F 99 17 147/75 94 02/01/18 06:57 97.6 F 97 18 174/98 94 02/01/18 03:16 97.9 F 90 16 143/89 95 01/31/18 23:10 97.8 F 70 15 108/66 94 01/31/18 22:30 15 97 01/31/18 19:49 98.7 F 92 18 141/74 96 Intake and Output 02/01/18 02/01/18 02/01/18 07:59 15:59 23:59 Intake Total 50 / 50 1330 / 1330 Output Total 650 / 650 600 / 600 Balance -600 / -600 730 / 730 Intake: IV Fluids 50 / 50 1050 / 1050 0.9 % Sodium Chloride 1,000 ML 1000 / 1000 @ 75 mls/hr IVC .[id number] MANI Rx #:[id number] Ancef Premix DUPLEX 2,000 mg In 50 / 50 50 / 50 50 ml @ 100 mls/hr IVPB Q8HR MANI Rx#:[id number] Oral 280 / 280 Output: Urine 650 / 650 600 / 600 Other: Meal Breakfast Percent of Meal Consumed 0% # Voids 1 Weight 115.1 kg Blood Glucose* 170 261 216 Patient Weight 02/01/18 23:59 Weight 115.1 kg Incision: swollen (Continued swelling to LLE with minimal ecchymosis, dressings were taken down which had moderate bloody drainage on dressings. No active drainage or oozing from incisions to leg or foot. Avitene in place. Tissue around incisions soft to palpation, moderate tenderness to palpation. good ROM of toes, grossly NV intact distally) - Labs CBC & BMP: 02/01/18 04:18 02/01/18 04:18 Labs: Abnormal lab results RBC 3.01 M/mcL (4.19-5.50) L 02/01/18 04:18 Hgb 9.1 g/dL (12.9-16.9) L 02/01/18 04:18 Hct 28.0 % (37.5-50.1) L 02/01/18 04:18 Neutrophils # 10.3 K/mcL (1.6-8.9) H 01/30/18 05:10 Lymphocytes # 0.4 K/mcL (0.6-4.6) L 01/30/18 05:10 Carbon Dioxide 30 mEq/L (23-29) H 02/01/18 04:18 BUN 31 mg/dL (6-20) H 02/01/18 04:18 Creatinine 1.32 mg/dL (0.70-1.30) H 02/01/18 04:18 Glucose 152 mg/dL (70-105) H 02/01/18 04:18 POC Glucose 238 (58-89) H 01/31/18 19:46 Hemoglobin A1c 9.7 % (-5.6) H 01/30/18 21:38 Albumin 3.0 g/dL (3.5-5.7) L 01/31/18 04:08 Ur Specific [place] 1.027 (1.010-1.025) H 01/30/18 13:35 Urine Protein 100 mg/dL (Neg-Trace) H 01/30/18 13:35 Urine Glucose (UA) >=1000 mg/dL (Normal) H 01/30/18 13:35 Ur Squamous Epith Cells Moderate per lpf (None-Few) H 01/30/18 13:35 - VTE Documentation of Mechanical Device: Intermittent pneumatic compression device Consult Discharge Plan - Plan Referrals: Leslie Malhotra, AUTOMOBILE RENTAL AGENT [Primary Care Provider] -
[2018-02-01] MEDS: Nicotine 21 MG PATCH.TD24 TD SCH (19:41)
[2018-02-01] MEDS: Ondansetron 4 MG/2 ML VIAL IVP PRN ×2 (19:41→23:49)
--- NOTE | 2018-02-01 20:19 | Anesthesia Evaluation PreOp ---
Date of Encounter: 02/01/18 Time of Encounter: 20:17 - Past History Planned Operation: LEFT LEG CLOSURE OF FASCIOTOMY INCISIONS Cardiac History: [place], HTN, Hyperlipidemia, Other (CAD, PTCA X5 10/2017) Pulmonary History: Smoker (2 cigs/day. 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 Trauma to LLE with compartment syndrome. Fascitomy 01/29. Postoperative anemia and blood transfusion.) Anesthesia History: No Prior Anesthetic Complications, Past Anesthesia, Difficult Airway Alcohol Use: occasionally, recent Drug use: none Medications and Allergies Montelukast [Singulair] 10 mg PO DAILY 01/28/17 [History] Fluticasone/Vilanterol [Breo Ellipta 100-25 Mcg INH] 1 puff IH DAILY 04/28/17 [ History] Subcutaneous Insulin Pump [T:Slim] 0 units MC AD 04/28/17 [History] Pregabalin [Lyrica] 200 mg PO BID 06/08/17 [History] Albuterol Sulfate [Ventolin Hfa] 2 puff IH Q4H PRN 10/26/17 [History] Ipratropium/Albuterol Sulfate [Combivent Respimat Inhal [place]] 1 puff IH TID 10/02 [History] Omeprazole [PriLOSEC] 20 mg PO DAILY 10/26/17 [History] Allopurinol [Zyloprim 100 MG] 200 mg PO DAILY 10/27/17 [History] Aspirin 81 mg PO DAILY #30 tab.chew 10/27/17 [Rx] Furosemide [Lasix] 20 mg PO BID #60 tablet 10/27/17 [Rx] Ticagrelor [Brilinta] 90 mg PO BID #60 tablet 10/27/17 [Rx] Valsartan [Diovan] 160 mg PO DAILY #30 tablet 10/27/17 [Rx] Atorvastatin [Lipitor] 40 mg PO HS 01/29/18 [History] Ergocalciferol (VITAMIN D2) [Vitamin D2] 50,000 unit PO MO 01/29/18 [History] Metoprolol Succinate [Toprol Xl] 100 mg PO DAILY 01/29/18 [History] Nitroglycerin [Nitrostat] 0.4 mg SL Q5M PRN 01/29/18 [History] 3 Allergy/AdvReac Type Severity Reaction Status Date / Time Penicillins [PCN] Allergy raises Verified 01/29/18 13:53 blood sugar - Meds/Allergy Pre-op Review Allergies Reviewed: Yes Beta Blockers on Current Med List: Yes Anesthesia Results - Labs 02/01/18 04:18 02/01/18 04:18 Anesthesia Exam Vital Signs/O2 Sat/Glucose, Most Recent Temp Pulse Resp BP Pulse Ox 98 F 106 15 153/89 95 02/01/18 19:44 02/01/18 19:44 02/01/18 19:44 02/01/18 19:44 02/01/18 19:44 Blood Glucose* 216 - HEENT Mallampati: III Teeth: Normal - Cardiac Rhythm: Regular - Pulmonary Breath Sounds: bilateral Clear Anesthesia Assess/Plan ASA Score: 3 Modified Hardwick Scale for Level of Consciousness: Cooperative, oriented, and tranquil Anesthetic Plan: General Monitoring Plan: Standard Monitors Recovery Plan: PACU Anes Supervising Prov Stmt: I have participated in the evaluation of this patient. Patient informed and consented. Risks, benefits, and alternatives discussed. Patient wishes to proceed. - Discharge Medications Home Medications: Montelukast [Singulair] 10 mg PO DAILY 01/28/17 [History] Fluticasone/Vilanterol [Breo Ellipta 100-25 Mcg INH] 1 puff IH DAILY 04/28/17 [ History] Subcutaneous Insulin Pump [T:Slim] 0 units MC AD 04/28/17 [History] Pregabalin [Lyrica] 200 mg PO BID 06/08/17 [History] Albuterol Sulfate [Ventolin Hfa] 2 puff IH Q4H PRN 10/26/17 [History] Ipratropium/Albuterol Sulfate [Combivent Respimat Inhal [place]] 1 puff IH TID 10/02 [History] Omeprazole [PriLOSEC] 20 mg PO DAILY 10/26/17 [History] Allopurinol [Zyloprim 100 MG] 200 mg PO DAILY 10/27/17 [History] Aspirin 81 mg PO DAILY #30 tab.chew 10/27/17 [Rx] Furosemide [Lasix] 20 mg PO BID #60 tablet 10/27/17 [Rx] Ticagrelor [Brilinta] 90 mg PO BID #60 tablet 10/27/17 [Rx] Valsartan [Diovan] 160 mg PO DAILY #30 tablet 10/27/17 [Rx] Atorvastatin [Lipitor] 40 mg PO HS 01/29/18 [History] Ergocalciferol (VITAMIN D2) [Vitamin D2] 50,000 unit PO MO 01/29/18 [History] Metoprolol Succinate [Toprol Xl] 100 mg PO DAILY 01/29/18 [History] Nitroglycerin [Nitrostat] 0.4 mg SL Q5M PRN 01/29/18 [History] Allergies/Adverse Reactions: 3 Allergy/AdvReac Type Severity Reaction Status Date / Time Penicillins [PCN] Allergy raises Verified 01/29/18 13:53 blood sugar Medications Montelukast [Singulair] 10 mg PO DAILY 01/28/17 [History] Fluticasone/Vilanterol [Breo Ellipta 100-25 Mcg INH] 1 puff IH DAILY 04/28/17 [ History] Subcutaneous Insulin Pump [T:Slim] 0 units MC AD 04/28/17 [History] Pregabalin [Lyrica] 200 mg PO BID 06/08/17 [History] Albuterol Sulfate [Ventolin Hfa] 2 puff IH Q4H PRN 10/26/17 [History] Ipratropium/Albuterol Sulfate [Combivent Respimat Inhal [place]] 1 puff IH TID 10/02 [History] Omeprazole [PriLOSEC] 20 mg PO DAILY 10/26/17 [History] Allopurinol [Zyloprim 100 MG] 200 mg PO DAILY 10/27/17 [History] Aspirin 81 mg PO DAILY #30 tab.chew 10/27/17 [Rx] Furosemide [Lasix] 20 mg PO BID #60 tablet 10/27/17 [Rx] Ticagrelor [Brilinta] 90 mg PO BID #60 tablet 10/27/17 [Rx] Valsartan [Diovan] 160 mg PO DAILY #30 tablet 10/27/17 [Rx] Atorvastatin [Lipitor] 40 mg PO HS 01/29/18 [History] Ergocalciferol (VITAMIN D2) [Vitamin D2] 50,000 unit PO MO 01/29/18 [History] Metoprolol Succinate [Toprol Xl] 100 mg PO DAILY 01/29/18 [History] Nitroglycerin [Nitrostat] 0.4 mg SL Q5M PRN 01/29/18 [History] 3 Allergy/AdvReac Type Severity Reaction Status Date / Time Penicillins [PCN] Allergy raises Verified 01/29/18 13:53 blood sugar
--- NOTE | 2018-02-01 20:38 | Anesthesia Evaluation PreOp ---
Date of Encounter: 02/01/18 Time of Encounter: 21:24 - Past History Planned Operation: LEFT LEG CLOSURE OF FASCIOTOMY INCISIONS Cardiac History: [place], HTN, Hyperlipidemia, Other (CAD, PTCA X5 10/2017) Pulmonary History: Smoker (2 cigs/day. 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 Trauma LLE with compartment syndrome. Fasciotomy 01/29. Post operative bleeding, anemia, blood transfusion.) Anesthesia History: No Prior Anesthetic Complications, Past Anesthesia, Difficult Airway Alcohol Use: occasionally, recent Drug use: none Medications and Allergies Montelukast [Singulair] 10 mg PO DAILY 01/28/17 [History] Fluticasone/Vilanterol [Breo Ellipta 100-25 Mcg INH] 1 puff IH DAILY 04/28/17 [ History] Subcutaneous Insulin Pump [T:Slim] 0 units MC AD 04/28/17 [History] Pregabalin [Lyrica] 200 mg PO BID 06/08/17 [History] Albuterol Sulfate [Ventolin Hfa] 2 puff IH Q4H PRN 10/26/17 [History] Ipratropium/Albuterol Sulfate [Combivent Respimat Inhal [place]] 1 puff IH TID 10/02 [History] Omeprazole [PriLOSEC] 20 mg PO DAILY 10/26/17 [History] Allopurinol [Zyloprim 100 MG] 200 mg PO DAILY 10/27/17 [History] Aspirin 81 mg PO DAILY #30 tab.chew 10/27/17 [Rx] Furosemide [Lasix] 20 mg PO BID #60 tablet 10/27/17 [Rx] Ticagrelor [Brilinta] 90 mg PO BID #60 tablet 10/27/17 [Rx] Valsartan [Diovan] 160 mg PO DAILY #30 tablet 10/27/17 [Rx] Atorvastatin [Lipitor] 40 mg PO HS 01/29/18 [History] Ergocalciferol (VITAMIN D2) [Vitamin D2] 50,000 unit PO MO 01/29/18 [History] Metoprolol Succinate [Toprol Xl] 100 mg PO DAILY 01/29/18 [History] Nitroglycerin [Nitrostat] 0.4 mg SL Q5M PRN 01/29/18 [History] 3 Allergy/AdvReac Type Severity Reaction Status Date / Time Penicillins [PCN] Allergy raises Verified 01/29/18 13:53 blood sugar - Meds/Allergy Pre-op Review Medications Reviewed: Yes Allergies Reviewed: Yes Beta Blockers on Current Med List: Yes Anesthesia Results - Labs 02/01/18 04:18 02/01/18 04:18 - Imaging EKG: image reviewed (NSR) Anesthesia Exam Vital Signs/O2 Sat/Glucose, Most Recent Temp Pulse Resp BP Pulse Ox 98 F 106 15 153/89 95 02/01/18 19:44 02/01/18 19:44 02/01/18 19:44 02/01/18 19:44 02/01/18 19:44 Blood Glucose* 216 Weight: 115 Kg BMI 40 NPO (# of Hours): Instructed NPO after MN - HEENT Mallampati: III Teeth: Normal - Cardiac Rhythm: Regular - Pulmonary Breath Sounds: bilateral Clear Anesthesia Assess/Plan ASA Score: 4 Modified Moni Scale for Level of Consciousness: Cooperative, oriented, and tranquil Anesthetic Plan: General Monitoring Plan: Standard Monitors Recovery Plan: PACU Anes Supervising Prov Stmt: I have participated in the evaluation of this patient. Patient informed and consented. Risks, benefits, and alternatives discussed. Patient wishes to proceed.
[2018-02-02] MEDS: 0.9 % Sodium Chloride 1,000 ML IVC SCH (02:54)
[2018-02-02 06:05] LABS: Hematocrit 27.4 % (37.5-50.1); Mean Corpuscular HGB Conc 32.8 g/dL (31.6-35.5); Mean Corpuscular Hemoglobin 30.2 pg (28.0-33.3); Mean Corpuscular Volume 91.9 fL (83.0-100.0); Mean Platelet Volume 9.3 fL (9.4-12.4); Platelet Count 227 K/mcL (140-400); Red Blood Count 2.98 M/mcL (4.19-5.50); Red Cell Distribution Width 13.7 % (11.5-14.5)
[2018-02-02 06:25] LABS: BUN/Creatinine Ratio 16 (6-26); Blood Urea Nitrogen 18 mg/dL (6-20); Carbon Dioxide 29 mEq/L (23-29); Chloride 105 mEq/L (98-107); Glucose 197 mg/dL (70-105); Osmolality,Calculated 297 (280-300); Potassium 4.1 mEq/L (3.5-5.1); Sodium 140 mEq/L (136-145); eGFR For African Americans > 60 (> 60); eGFR For Non-African Americans > 60 (> 60)
--- NOTE | 2018-02-02 08:29 | Internal Med Progress Note ---
Date of Encounter: 02/02/18 Time of Encounter: 08:27 - Assessment and plan (1) Compartment syndrome of left lower extremity Current Visit: Yes Status: Acute Assessment and plan: presented with 5 day hx of worsening left lower leg pain, swelling and tightness (secondary to trauma; tree landed on left leg while at work). Distal pulses found to be feeble, with elevated compartmental pressure in the ER. No evidence of rhabdomyolysis; CK 282. S/p urgent fasciotomy 01/30/[address] Lopez. Hx CAD as noted below with PCI 10/2017; need to cont DAPT. Ortho planning wound closure 02/02/18; will need PT/OT eval post-op. Cont Ancef, pain control with PRN hydrocodone, fentanyl. Qualifiers: Encounter type: initial encounter Qualified Code(s): T79.A22A - Traumatic compartment syndrome of left lower extremity, initial encounter (2) Postoperative anemia due to acute blood loss Current Visit: Yes Status: Acute Assessment and plan: Hgb 14.9 on admission and dropped to 8.9 postoperatively. Receibed 2 units PRBC on 01/31/18. Post operative anemia due to acute blood loss in the setting of DAPT. Hemodynamically stable. With intermittent tachycardia (suspect due to pain). No hypotension. Need to continue dual antiplatelet therapy with recent stents. Bleeding now controlled and Hgb stable. Closely monitor H&H. Transfuse for Hgb less than 8. Hgb 9 02/02/18 (3) Nausea Current Visit: Yes Status: Acute Assessment and plan: new onset on 02/01 with intermittent clear emesis. No ABD pain, no loose stool. ABD exam begnin. Possibly secondary to nicotine w/d (patient reports using 2-3 cans of chewing tobacco a day and becomes nauseated without it). Add nicotine patch. Monitor. (4) CAD (coronary artery disease) Current Visit: Yes Status: Chronic Assessment and plan: per hx. 10/2017 [facility] showed severe 3 vessel disease. S/p successful PCI with 5 SAMINA at that time. Asymptomatic, denies chest pain. Evaluated by Cardiology who confirmed the need to continue DAPT at this time. Cont home ASA, brilinta, BB, statin. We consult cardiology if significant bleeding recurs/persistent anemia for reevaluation of DAPT Qualifiers: Coronary Disease-Associated Artery/Lesion type: craig artery [place] vs. transplanted heart: craig heart Associated angina: without angina Qualified Code(s): I25.10 - Atherosclerotic heart disease of craig coronary artery without angina pectoris (5) Type 1 diabetes Current Visit: Yes Status: Acute Assessment and plan: per hx. Hgb A1c 9.7%. Uses insulin pump at home. Blood sugars uncontrolled on admission (in the 600s; secondary to not having insulin pump). Received one- time dose IV insulin. Blood sugar significantly improved now that he has insulin pump from home. Monitor blood sugar. Qualifiers: Diabetes mellitus complication status: with hyperglycemia Qualified Code(s) : E10.65 - Type 1 diabetes mellitus with hyperglycemia (6) Chronic kidney disease Current Visit: Yes Status: Chronic Assessment and plan: per hx. Follows with Dr. Abarca. Renal function appeared to be at baseline on admission, now slightly worsened (scr 2.17, GFR 41). Likely secondary to hypovolemia/dehydration. Renal function improving with IV fluids. Avoid nephrotoxic agents as possible. Monitor repeat renal function. Nephrology followed Qualifiers: Chronic kidney disease stage: stage 3 (moderate) Qualified Code(s): N18.3 - Chronic kidney disease, stage 3 (moderate) (7) Hyperkalemia Current Visit: No Status: Resolved Assessment and plan: K 6.2; in the setting of worsening renal function. K normalized with 1 time dose IV insulin, Kayexalate. Monitor electrolytes with daily BMPs (8) Hyponatremia Current Visit: Yes Status: Acute Assessment and plan: Na 124; suspect pseudohyponatremia secondary to hyperglycemia. Remained neurologically intact. Sodium normalized as glucose controlled. Monitor electrolytes with daily BMPs (9) HTN (hypertension) Current Visit: Yes Status: Chronic Assessment and plan: per hx. BP variable but acceptable. Cont home BP medication. Monitor BP and titrate PRN Qualifiers: Hypertension type: essential hypertension Qualified Code(s): I10 - Essential (primary) hypertension (10) Nicotine dependence, chewing tobacco, with withdrawal Current Visit: Yes Status: Acute Assessment and plan: patient reports using 2-3 cans of chewing tobacco as noted above. In possible w/ d with nausea. Cessation advised. Nicotine patch added with some improvement in symptoms. (11) DVT prophylaxis Current Visit: No Status: Acute Assessment and plan: SCD - Subjective Interval history: Seen and examined at bedside. Still with c/o LLE pain but says it is controlled with PRN pain medicine. Says he feels nauseated, thinks it is due to not having chewing tobacco. Had small amount clear emesis yesterday. No ABD pain, no loose stool. Feels a little better today. - Constitutional Vitals: Temp Pulse Resp BP Pulse Ox 98.0 F 108 17 133/81 99 02/02/18 07:33 02/02/18 07:33 02/02/18 07:33 02/02/18 07:33 02/02/18 07:33 General appearance: Present: A&O X 3, morbidly obese, obese, answers questions appropriately - Head Head exam: Present: atraumatic, normocephalic - Eye Eye exam: Present: PERRL, conjuntiva pink, sclera anicteric Pupils: Present: PERRL - Neck Neck exam general surgery: Present: supple, trachea midline. Absent: lymphadenopathy - Respiratory Respiratory exam: Present: CTAB. Absent: accessory muscle use, rales, rhonchi, wheezes - Cardiovascular Cardiovascular exam: Present: RRR, +S1, +S2. Absent: diastolic murmur, gallop, rubs, systolic murmur - GI/Abdominal GI/Abdominal exam: Present: normal bowel sounds, soft, no peritoneal signs. Absent: distended, tenderness - Extremities Exam Extremities exam: Present: pedal edema, warm, radial pulses palpable and symmetrical. Absent: calf tenderness, cyanotic Additional comments: LLE with bulky dressing in place - Neurological Exam Neurological exam: Present: CN II-XII intact, oriented X3, no focal deficits. Absent: pronater drift, facial droop, speech deficit - Skin Skin exam: Present: dry, intact Internal Medicine: Result - Labs CBC & Chem 7: 02/02/18 05:10 02/02/18 05:10 Labs: Short CBC 02/02/18 Range/Units 05:10 WBC 5.6 (4.3-11.1) K/mcL Hgb 9.0 L (12.9-16.9) g/dL Hct 27.4 L (37.5-50.1) % Plt Count 227 (140-400) K/mcL BMP 02/02/18 05:10 Sodium 140 Potassium 4.1 Chloride 105 Carbon Dioxide 29 BUN 18 Creatinine 1.15 Glucose 197 H Calcium 9.0 - VTE Documentation of Mechanical Device: Intermittent pneumatic compression device Consult Discharge Plan - Plan Referrals: Leslie Malhotra, RETAIL SERVICE REPRESENTATIVE [Primary Care Provider] -
[2018-02-02] MEDS: *HR* Ticagrelor 90 MG TABLET PO SCH ×2 (09:16→21:18)
[2018-02-02] MEDS: Metoprolol XL (24 HR) Succ 50 MG TAB.ER.24H PO SCH (09:16)
[2018-02-02] MEDS: Aspirin 81 MG TAB.CHEW PO SCH (09:16)
[2018-02-02] MEDS: CeFAZolin Premix DUPLEX 2,000 MG/50 ML BAG IVPB SCH ×2 (09:16→16:20)
[2018-02-02] MEDS: Nicotine 21 MG PATCH.TD24 TD SCH (09:17)
[2018-02-02] MEDS: Ondansetron 4 MG/2 ML VIAL IVP PRN (11:01)
[2018-02-02] MEDS: *HR* FentaNYL (PF) 100 MCG/2 ML VIAL IVP PRN ×2 (11:07→18:47)
[2018-02-02] MEDS ORDERED: *HR* FentaNYL (PF) 100 MCG/2 ML VIAL ONE ×2 (16:09→16:19)
[2018-02-02] MEDS ORDERED: *HR* Propofol 200 MG/20 ML VIAL IVP ONE (16:10)
[2018-02-02] MEDS ORDERED: Propofol 500 MG/50 ML INFUS..BTL ONE (16:51)
[2018-02-02] MEDS ORDERED: Dexamethasone 4 MG/ML VIAL ONE (16:52)
[2018-02-02] MEDS ORDERED: Ondansetron 4 MG/2 ML VIAL ONE (16:52)
[2018-02-02] MEDS ORDERED: *HR* Promethazine 25 MG/ML VIAL IVP PRN (17:30)
[2018-02-02] MEDS ORDERED: *HR* OxyCODONE Immed Rel 5 MG TABLET PO PRN (17:30)
[2018-02-02] MEDS ORDERED: *HR* Metoprolol 5 MG/5 ML VIAL IVP ONE (17:33)
[2018-02-02] MEDS: *HR* Metoprolol 5 MG/5 ML VIAL IVP PRN ×2 (17:35→17:54)
--- NOTE | 2018-02-02 18:14 | Anesthesia Evaluation Post Op ---
Date of Encounter: 02/02/18 Time of Encounter: 18:13 - Vital Signs Vital Signs: Last Vital Signs Temp 98.5 F 02/02/18 17:54 Pulse 103 02/02/18 18:04 Resp 18 02/02/18 18:04 BP 142/56 02/02/18 18:04 Pulse Ox 96 02/02/18 18:04 - Lungs Lungs: Clear Ascult./Percussion - Airway Airway: Non-obstructed - Cardiovascular Regular Rate - Mental Status Mental Status: Alert & Oriented, Answers Appropriately - Pain Pain Scale: 3 - Nausea Vomiting Nausea Vomiting: Not Present - Hydration Hydration: Ice chips - Discharge PostOp Status: Transfer Patient to floor
[2018-02-02] MEDS ORDERED: 0.9 % Sodium Chloride 1,000 ML IVC SCH (18:27)
[2018-02-02] MEDS ORDERED: Furosemide 20 MG/2 ML VIAL IVP PRN (18:27)
[2018-02-02] MEDS ORDERED: *HR* Labetalol 100 MG/20 ML MDV IVP PRN (18:27)
[2018-02-02] MEDS ORDERED: Acetaminophen 325 MG TABLET PO PRN (18:27)
[2018-02-02] MEDS ORDERED: Naloxone 0.4 MG/ML INJ IVP PRN (18:27)
[2018-02-02] MEDS ORDERED: Nitroglycerin 0.4 MG TAB.SUBL SL PRN (18:27)
[2018-02-02] MEDS ORDERED: D5% in Water 1,000 ML IVC PRN (18:27)
[2018-02-02] MEDS ORDERED: Ondansetron 4 MG/2 ML VIAL IVP PRN ×2 (18:27)
[2018-02-02] MEDS ORDERED: Ipratropium/Albuterol Neb 3 ML IH PRN (18:27)
[2018-02-02] MEDS ORDERED: *HR* Dextrose 50 % in Water (Syg) 50 ML SYRINGE IVP PRN (18:27)
[2018-02-02] MEDS ORDERED: Dextrose Gel 15 GM/37.5 ML TUBE PO PRN ×2 (18:27)
[2018-02-02] MEDS: Pregabalin 50 MG CAPSULE PO SCH (21:18)
[2018-02-02] MEDS: *HR* HYDROcodone/Acet 5/325 mg TABLET PO PRN (21:27)
--- NOTE | 2018-02-02 22:57 | Electrocardiograph Report ---
[place] [id number] Test Date: 2018-01-29 Pat Name: Dennis Kilpatrick Department: 104 Room: [facility] Gender: M Chart Writer: CLAUDIA : 1980 Requested By: Daryl Rodriguez Order Number: [id number] Reading MD: Michael Rosario DO Measurements Intervals [place] Rate: 93 P: 46 VA: 151 QRS: 49 QRSD: 90 T: 6 QT: 319 QTc: 370 Interpretive Statements SINUS RHYTHM Electronically Signed On 02-02-2018 22:55:57 EDT by Michael Rosario DO
[2018-02-03] MEDS: CeFAZolin Premix DUPLEX 2,000 MG/50 ML BAG IVPB SCH ×2 (00:25→08:13)
[2018-02-03] MEDS: *HR* FentaNYL (PF) 100 MCG/2 ML VIAL IVP PRN (05:34)
[2018-02-03 06:27] LABS: Hematocrit 30.2 % (37.5-50.1); Hemoglobin 9.7 g/dL (12.9-16.9); Mean Corpuscular HGB Conc 32.1 g/dL (31.6-35.5); Mean Corpuscular Hemoglobin 29.8 pg (28.0-33.3); Mean Corpuscular Volume 92.6 fL (83.0-100.0); Mean Platelet Volume 9.4 fL (9.4-12.4); Platelet Count 295 K/mcL (140-400); Red Blood Count 3.26 M/mcL (4.19-5.50); Red Cell Distribution Width 13.7 % (11.5-14.5)
[2018-02-03 06:48] LABS: BUN/Creatinine Ratio 15 (6-26); Blood Urea Nitrogen 23 mg/dL (6-20); Calcium 9.2 mg/dL (8.6-10.3); Carbon Dioxide 25 mEq/L (23-29); Chloride 100 mEq/L (98-107); Glucose 378 mg/dL (70-105); Osmolality,Calculated 301 (280-300); Potassium 4.4 mEq/L (3.5-5.1); Sodium 136 mEq/L (136-145); eGFR For African Americans > 60 (> 60); eGFR For Non-African Americans 53 (> 60)
[2018-02-03] MEDS: *HR* Ticagrelor 90 MG TABLET PO SCH (08:12)
[2018-02-03] MEDS: Pregabalin 50 MG CAPSULE PO SCH (08:13)
[2018-02-03] MEDS ORDERED: Nicotine 21 MG PATCH.TD24 TD SCH (09:00)
[2018-02-03] MEDS ORDERED: (Fluticasone/Vilanterol [Breo Ellipta 100-25 Mcg Inh]) IH SCH (09:00)
[2018-02-03] MEDS ORDERED: Aspirin 81 MG TAB.CHEW PO SCH (09:00)
[2018-02-03] MEDS ORDERED: Metoprolol XL (24 HR) Succ 50 MG TAB.ER.24H PO SCH (09:00)
[2018-02-03] MEDS: *HR* HYDROcodone/Acet 5/325 mg TABLET PO PRN (11:14)
[2018-02-03 11:15] VITALS: BP 134/78
--- NOTE | 2018-02-03 12:39 | Discharge Summary ---
Date of Encounter: 02/03/18 Time of Encounter: 12:37 - Discharge Diagnosis (1) Compartment syndrome of left lower extremity Priority: Primary Status: Acute Comments: S/p urgent fasciotomy 01/30/[address] Lopez. sutured on 02/03/18 Qualifiers: Encounter type: initial encounter Qualified Code(s): T79.A22A - Traumatic compartment syndrome of left lower extremity, initial encounter (2) Postoperative anemia due to acute blood loss Priority: Primary Status: Acute (3) Hyponatremia Priority: Secondary Status: Acute (4) Nicotine dependence, chewing tobacco, with withdrawal Priority: Secondary Status: Acute (5) Type 1 diabetes Priority: Secondary Status: Acute Qualifiers: Diabetes mellitus complication status: with hyperglycemia Qualified Code(s) : E10.65 - Type 1 diabetes mellitus with hyperglycemia (6) Hyperkalemia Priority: Secondary Status: Resolved (7) CKD (chronic kidney disease) stage 3, GFR 30-59 ml/min Priority: Secondary Status: Acute Hospital course: Mr. Kilpatrick is a 37 year old male with h/o- hypertension, diabetes type I using an insulin pump, coronary artery disease status post drug-eluting stents in the LAD and RCA on antiplatelet therapy, chronic kidney disease stage III, depression, anxiety, asthma, tobacco use, hyperlipidemia, presented with 5 day hx of worsening left lower leg pain, swelling and tightness (secondary to trauma ; tree landed on left leg while at work). Distal pulses found to be feeble, with elevated compartmental pressure in the ER. No evidence of rhabdomyolysis; CK 282. S/p urgent fasciotomy 01/30/[address] Lopez. Hx CAD as noted below with PCI 2016; need to cont DAPT. Site cont to ooze. Hgb 8.9 on 01/31/18; received 2 units PRBC. Hgb was 14.9 on admission and dropped to 8.9 postoperatively. Post operative anemia due to acute blood loss in the setting of DAPT. Hemodynamically stable. No tachycardia or hypotension. Need to continue dual antiplatelet therapy with recent stents. /Closely monitor repeat H&H. hx. 10/2017 [facility] showed severe 3 vessel disease. S/p successful PCI with 5 SAMINA at that time. Evaluated by Cardiology who confirmed the need to continue DAPT at this time. K was 6.2, received Kayexelate hx. Hgb A1c 9.7%. Uses insulin pump at home. The patient's wounds were closed to yesterday. No further bleeding. Hemoglobin is 9.7 today. Stable to be discharged Time spent discussing smoking cessation with patient: 3 to 10 minutes - Time Spent with Patient Total time spent providing and/or coordinating discharge services: Greater than 30 minutes (40 min) - Discharge Medications Prescriptions: HYDROcodone/Acet 5/325 mg [[place] 5-325 mg] 1 tab PO Q6HR PRN 7 Days #28 tablet PRN Reason: Moderate Pain Home Medications: Montelukast [Singulair] 10 mg PO DAILY 01/28/17 [History] Fluticasone/Vilanterol [Breo Ellipta 100-25 Mcg INH] 1 puff IH DAILY 04/28/17 [ History] Subcutaneous Insulin Pump [T:Slim] 0 units MC AD 04/28/17 [History] Pregabalin [Lyrica] 200 mg PO BID 06/08/17 [History] Albuterol Sulfate [Ventolin Hfa] 2 puff IH Q4H PRN 10/26/17 [History] Ipratropium/Albuterol Sulfate [Combivent Respimat Inhal [place]] 1 puff IH TID 10/02 [History] Omeprazole [PriLOSEC] 20 mg PO DAILY 10/26/17 [History] Allopurinol [Zyloprim 100 MG] 200 mg PO DAILY 10/27/17 [History] Aspirin 81 mg PO DAILY #30 tab.chew 10/27/17 [Rx] Furosemide [Lasix] 20 mg PO BID #60 tablet 10/27/17 [Rx] Ticagrelor [Brilinta] 90 mg PO BID #60 tablet 10/27/17 [Rx] Valsartan [Diovan] 160 mg PO DAILY #30 tablet 10/27/17 [Rx] Atorvastatin [Lipitor] 40 mg PO HS 01/29/18 [History] Ergocalciferol (VITAMIN D2) [Vitamin D2] 50,000 unit PO MO 01/29/18 [History] Metoprolol Succinate [Toprol Xl] 100 mg PO DAILY 01/29/18 [History] Nitroglycerin [Nitrostat] 0.4 mg SL Q5M PRN 01/29/18 [History] HYDROcodone/Acet 5/325 mg [[place] 5-325 mg] 1 tab PO Q6HR PRN 7 Days #28 tablet 02/03/18 [Rx] Allergies/Adverse Reactions: 3 Allergy/AdvReac Type Severity Reaction Status Date / Time Penicillins [PCN] Allergy raises Verified 01/29/18 13:53 blood sugar Date of admission: 01/29/18 17:46 Primary care physician: Leslie Malhotra CNP Consults: 01/30/18 09:57 Consult to Nephrology [CONS] Routine Consulting Provider: Kidney [facility]et/MANUEL/JAYLAN/AINSLEY Reason for Consult: CKD Call Completed: Yes 02/01/18 12:45 Consult to Physical Therapy [CONS] Routine Comment: Evaluate, develop and implement POC Reason for Consult: D/C planning. WBAT. Can work with therapy and has bathroom privileges. Minimal ambulation. Elevate LLE after working with therapy. Does patient have active BEDREST order?: No Is patient medically & hemodynamically stable?: Yes - Constitutional Vitals: Temp Pulse Resp BP Pulse Ox 98.9 F 106 16 134/78 94 02/03/18 11:08 02/03/18 11:08 02/03/18 11:08 02/03/18 11:08 02/03/18 11:08 General appearance: Present: A&O X 3, morbidly obese, obese, answers questions appropriately - Head Head exam: Present: atraumatic, normocephalic - Eye Eye exam: Present: PERRL, conjuntiva pink, sclera anicteric Pupils: Present: PERRL - Neck Neck exam general surgery: Present: supple, trachea midline. Absent: lymphadenopathy - Respiratory Respiratory exam: Present: CTAB. Absent: accessory muscle use, rales, rhonchi, wheezes - Cardiovascular Cardiovascular exam: Present: RRR, +S1, +S2. Absent: diastolic murmur, gallop, rubs, systolic murmur - GI/Abdominal GI/Abdominal exam: Present: normal bowel sounds, soft, no peritoneal signs. Absent: distended, tenderness - Extremities Exam Extremities exam: Present: warm, radial pulses palpable and symmetrical. Absent : calf tenderness, cyanotic, pedal edema - Neurological Exam Neurological exam: Present: CN II-XII intact, oriented X3, no focal deficits. Absent: pronater drift, facial droop, speech deficit Additional comments: Vasectomy wounds on the left lower extremity without signs of hematoma, wound on the dorsum of the left foot does not show signs of hematoma or infection - Skin Skin exam: Present: dry, intact - Patient Status Disposition: Home, Self-Care Condition: Good - Discharge Instructions Follow Up With: Leslie Malhotra CNP [Primary Care Provider] - Additional Instructions: Follow-up with primary care physician within the next 7 days. Continue Brilinta and aspirin. Stop using tobacco - Diet and Activity Activity: increase activity as tolerated Diet: diabetic diet - VTE Documentation of Mechanical Device: Intermittent pneumatic compression device
--- NOTE | 2018-02-03 17:03 | Orthopedics Progress Note ---
Date of Encounter: 02/03/18 Time of Encounter: 01:10 - Assessment and Plan (1) Compartment syndrome of left lower extremity Status: Acute Continue to ice and elevate LLE. Pain control per hospitalist. Discussed with patient that he is WBAT but he is to limit how much walking he does to only when necessary. He has crutches at home he will use. Dressings to LLE are to be left in place until follow up visit at POW#1. Will follow up with Stefania Jordan PA-C in [facility] office on 02/08/18 at 3:00pm. Qualifiers: Encounter type: initial encounter Qualified Code(s): T79.A22A - Traumatic compartment syndrome of left lower extremity, initial encounter Subjective Principal diagnosis: POD#4 s/p LLE faciotomies to leg and foot 01/29/18 Interval history: Patient doing well today with no concerns. Pain is much better now since the procedure yesterday. Denies any calf pain or n/t. No events overnight. Objective Vital signs: Vital Signs Temp Pulse Resp BP Pulse Ox 02/03/18 11:08 98.9 F 106 16 134/78 94 02/03/18 07:33 98.2 F 106 16 172/93 97 02/03/18 00:16 98.8 F 89 14 139/66 93 02/02/18 20:00 99.4 F 99 16 130/73 02/02/18 18:53 99.1 F 105 18 122/68 95 02/02/18 18:32 99.1 F 106 16 124/75 95 02/02/18 18:18 98.8 F 101 18 131/74 98 02/02/18 18:04 103 18 142/56 96 02/02/18 17:54 98.5 F 104 18 125/74 96 02/02/18 17:44 104 18 140/78 94 02/02/18 17:34 117 18 134/86 99 02/02/18 17:24 98.1 F 118 15 167/92 100 Intake and Output 02/03/18 02/03/18 02/03/18 07:59 15:59 23:59 Intake Total 50 / 50 530 / 530 Output Total 1999 Balance 50 / 50 -1470 / -1470 Intake: IV Fluids 50 / 50 50 / 50 Ancef Premix DUPLEX 2,000 mg In 50 / 50 50 / 50 50 ml @ 100 mls/hr IVPB Q8HR [facility] Rx#:[id number] Oral 480 / 480 Output: Urine 1999 Other: Meal Breakfast Percent of Meal Consumed 100% # Voids 1 Blood Glucose* 410 362 Incision: clean and dry (dressings c/d/i to LLE with no visible drainage. good movement of toes. Grossly NV intact) - Labs CBC & BMP: 02/03/18 05:32 02/03/18 05:32 Labs: Abnormal lab results RBC 3.26 M/mcL (4.19-5.50) L 02/03/18 05:32 Hgb 9.7 g/dL (12.9-16.9) L 02/03/18 05:32 Hct 30.2 % (37.5-50.1) L 02/03/18 05:32 Neutrophils # 10.3 K/mcL (1.6-8.9) H 01/30/18 05:10 Lymphocytes # 0.4 K/mcL (0.6-4.6) L 01/30/18 05:10 BUN 23 mg/dL (6-20) H 02/03/18 05:32 Creatinine 1.49 mg/dL (0.70-1.30) H 02/03/18 05:32 Est GFR (Non-Af Amer) 53 (> 60) L 02/03/18 05:32 Glucose 378 mg/dL (70-105) H 02/03/18 05:32 POC Glucose 193 (58-89) H 02/02/18 15:20 Hemoglobin A1c 9.7 % (-5.6) H 01/30/18 21:38 Calculated Osmolality 301 (280-300) H 02/03/18 05:32 Albumin 3.0 g/dL (3.5-5.7) L 01/31/18 04:08 Ur Specific [place] 1.027 (1.010-1.025) H 01/30/18 13:35 Urine Protein 100 mg/dL (Neg-Trace) H 01/30/18 13:35 Urine Glucose (UA) >=1000 mg/dL (Normal) H 01/30/18 13:35 Ur Squamous Epith Cells Moderate per lpf (None-Few) H 03/17/18 13:35 - VTE Documentation of Mechanical Device: Intermittent pneumatic compression device Consult Discharge Plan - Plan Instructions: Hydrocodone/Acetaminophen (By mouth), Compartment Syndrome (DC) Additional Instructions: Follow-up with primary care physician within the next 7 days. Continue Brilinta and aspirin. Stop using tobacco. Do not change dressing. Please call the office if the dressing becomes saturated. Follow-up appointments: If there is not an appointment listed below, please call your physician and schedule a follow-up appointment. If you have congestive heart failure and your symptoms return, make an appointment with your physician. Medication List: Carry an up to date list of medications you are taking at all time. We have given you an updated medication list including any new medications that you have been prescribed. Please provide that list to your primary provider Symptoms: If your condition changes or you experience any of the following symptoms, notify your physician immediately: Unusual or worsening pain, fever, persistent nausea and vomiting, bleeding, increase in swelling (especially in your legs), sudden weight gain, extreme dizziness, chest pain, increased drainage or redness from a wound or incision. Go to the emergency department if you experience a problem with breathing. Weights: If you have a history of swelling or shortness of breath, weigh yourself daily and notify your physician if you have a weight gain of two or more pounds in one day or 5 or more pounds in a week. If you experience any of the warning signs for stroke: Sudden numbness or weakness of the face, arm or leg; especially on one side of the body, sudden confusion, trouble speaking or understanding, sudden trouble seeing in one or both eyes, sudden trouble walking, dizziness, loss of balance or coordination, sudden sever headache with no cause; Call 911 or go to the emergency room. Stroke is a medical emergency. Some risk factors for stroke: Age, cigarette smoking, diabetes, excessive alcohol consumption, family history , high blood pressure, overweight, physical inactivity, prior stroke, heart attack, diagnosis of carotid artery stenosis or other artery disease. If you smoke, STOP: Smoking or tobacco use significantly increases your risk of heart and lung disease. Your chance of disease greatly increases if you continue to smoke. For more information, call the [place] tobacco quit line for smoking cessation -NOW ( ) Referrals: Leslie Malhotra, [employer] [address] [Primary Care Provider] - Prescriptions: HYDROcodone/Acet 5/325 mg [[place] 5-325 mg] 1 tab PO Q6HR PRN 7 Days #28 tablet PRN Reason: Moderate Pain
--- NOTE | 2018-02-05 13:44 | Operative Note ---
Date of procedure: 02/02/18 Pre-op diagnosis: Left leg and foot open wounds status post fasciotomies for compartment synd Post-op diagnosis: same (Left leg and foot open wounds status post fasciotomies for compartment syndrome) Procedure: Left foot simple closure of 2 dorsal wounds, each proximal before some numbness along Left leg debridement of open wounds with bed preparation and application of acellular graft to medial wound 6 cm wide by 15 cm long and lateral wound 8 cm wide by 15 cm long Anesthesia: SHANA Surgeon: Grey Lopez Was there an access services assistant present: No Estimated blood loss (cc): 20 Tourniquet Time (Minutes): 0 Specimen: 0 Condition: stable Disposition: PACU Procedure in Detail: Indications: Patient is a 29-year-old gentleman who sustained trauma to the left lower extremity, developing into compartment syndromes of his left leg and foot. He underwent fasciotomies 4 days ago. The compartments are soft and now is scheduled for possible wound closure or grafting. Procedure: The patient was brought to operating room and placed or table in supine position. He underwent general anesthesia. His left lower extremity was prepped and draped in usual sterile fashion. A timeout was performed. At the start of the case the patient had blood drawn, which was spun down using the [employer] [place] system, to extract PRP. The components were mixed on the back table with appropriate regions and set aside. The open wounds were cultured irrigated with normal saline and aggressively debrided, removing all hematoma and granulation tissue. The medial wound on the foot was previously closed and the floor. The dorsum of the foot was very soft. These 2 incisions were now completely closed tying off the 3-0 nylon horizontal mattress sutures, followed by 0 nylon simple sutures. The exposed muscle on the medial and lateral sides leg. Healthy with no signs of necrosis. The compartments are very soft on palpation, but the skin could not be closed down. It was set to graft over the muscle tissue. The muscle was then sprayed with the PRP. This was then followed by the fibrous component to obtain good hemostasis. Once that was achieved, we used the Integra mashed bilaminar wound matrix dressing. A 25 cm the 25 cm sheet was opened up and soaked in saline. A 10 cm strip was cut off and set aside. The remaining strip was then cut down to midline. The undersurface of the acellular graft was sprayed with the remaining PRP. Starting on the medial side the graft with the silicone side up was applied, covering the muscle tissue completely. The graft was stapled in place, and the edges trimmed. The step was repeated on the lateral side also. There is good coverage of the muscle tissue. Sterile dressings were then applied using Acticoat over the gracilis followed by gauze soaked in sterile water. Remaining bulky dressings were applied. The patient was extubated and taken to recovery room in stable condition.
== END 2018-02-03 15:25 | disposition home or self-care (01) | DRG 982 ==
LOC: EMEROO 13:43 → 3ANU 13:43 → 3NENU 23:12
PROVIDERS: ADMIT Student in an Organized Health Care Education/Training Program; ATTEND Hospitalist
PROC: ORTFASC (2018-01-29 17:30)

== ENCOUNTER 2020-04-19 14:24 | Inpatient (IN) ==
[2020-04-19] MEDS ORDERED: Naloxone 0.4 MG/ML INJ IVP PRN (18:09)
[2020-04-19] MEDS ORDERED: Ondansetron 4 MG/2 ML VIAL IVP PRN (18:09)
[2020-04-19] MEDS ORDERED: D5% in Water 1,000 ML IVC PRN ×2 (18:20→18:58)
[2020-04-19] MEDS ORDERED: *HR* Dextrose 50 % in Water (Syg) 50 ML SYRINGE IVP PRN ×2 (18:20→18:58)
[2020-04-19] MEDS ORDERED: Dextrose Gel 15 GM/37.5 ML TUBE PO PRN ×4 (18:20→18:58)
[2020-04-19] MEDS ORDERED: *HR* LORazepam 2 MG/ML VIAL IVP PRN ×3 (18:21)
[2020-04-19] MEDS ORDERED: Insulin LISPRO 300 UNITS/3 ML VIAL SQ SCH ×3 (18:30→21:00)
[2020-04-19 18:52] LABS: Basophils % 0.8 %; Eosinophils # 0.2 K/mcL (0.0-0.6); Eosinophils % 3.4 %; Hematocrit 44.1 % (37.5-50.1); Hemoglobin 15.2 g/dL (12.9-16.9); Immature Granulocytes % 0.6 % (0-4); Lymphocytes # 0.9 K/mcL (0.6-4.6); Lymphocytes % 16.5 %; Mean Corpuscular HGB Conc 34.5 g/dL (31.6-35.5); Mean Corpuscular Hemoglobin 31.9 pg (28.0-33.3); Mean Corpuscular Volume 92.6 fL (83.0-100.0); Mean Platelet Volume 9.3 fL (9.4-12.4); Monocytes # 0.6 K/mcL (0.0-1.3); Monocytes % 10.5 %; Neutrophils # 3.6 K/mcL (1.6-8.9); Platelet Count 226 K/mcL (140-400); Red Blood Count 4.76 M/mcL (4.19-5.50); Red Cell Distribution Width 12.1 % (11.5-14.5); Segmented Neutrophils % 68.2 %; White Blood Count 5.3 K/mcL (4.3-11.1)
[2020-04-19 19:08] LABS: BUN/Creatinine Ratio 13 (6-26); Blood Urea Nitrogen 22 mg/dL (6-20); Calcium 8.6 mg/dL (8.6-10.3); Carbon Dioxide 25 mEq/L (23-29); Chloride 92 mEq/L (98-107); Glucose 446 mg/dL (70-105); Magnesium 2.1 mg/dL (1.6-2.6); Osmolality,Calculated 287 (280-300); Potassium 4.3 mEq/L (3.5-5.1); Sodium 127 mEq/L (136-145); Troponin I < 0.03 ng/mL (< 0.04); eGFR For African Americans 57 (> 60); eGFR For Non-African Americans 47 (> 60)
[2020-04-19 19:22] LABS: Thyroid Stimulating Hormone 2.464 mcIU/mL (0.340-5.600)
[2020-04-19 19:50] LABS: C-Reactive Protein < 5 mg/L (Less than 10)
[2020-04-19] MEDS: Pregabalin 50 MG CAPSULE PO SCH (20:59)
[2020-04-19] MEDS ORDERED: Insulin DETEMIR 100 UNIT/ML X5UNITS SQ SCH (21:00)
[2020-04-19] MEDS ORDERED: *HR* Ticagrelor 90 MG TABLET PO SCH (21:00)
[2020-04-19] MEDS: Metoprolol XL (24 HR) Succ 50 MG TAB.ER.24H PO SCH (21:02)
[2020-04-19] MEDS: 0.9 % Sodium Chloride 1,000 ML IVC SCH (21:02)
[2020-04-19] MEDS: Insulin LISPRO 300 UNITS/3 ML VIAL SQ SCH (21:06)
[2020-04-19] MEDS: Thiamine (B-1) 100 MG TABLET PO SCH (21:11)
[2020-04-19] MEDS: Vitamin B Complex/Vit C/Vit E 1 EACH TABLET PO SCH (21:11)
[2020-04-19] MEDS: Acetaminophen 325 MG TABLET PO PRN (21:11)
[2020-04-19] MEDS: Folic Acid 1 MG TABLET PO SCH (21:18)
[2020-04-19] MEDS: Aspirin 81 MG TAB.CHEW PO SCH (21:21)
[2020-04-19 21:32] LABS: Amphetamine Screen,Urine Negative ng/mL (Cutoff=1000); Barbiturate Screen,Urine Negative ng/mL (Cutoff=200); Benzodiazepines Screen,Urine Negative ng/mL (Cutoff=200); Cannabinoid Screen,Urine Negative ng/mL (Cutoff = 50); Cocaine Screen,Urine Negative ng/mL (Cutoff= 300); Opiate Screen,Urine Negative ng/mL (Cutoff=300); Phencyclidine Screen,Urine Negative ng/mL (Cutoff=25)
[2020-04-20] MEDS: *HR* Heparin 5,000 UNIT/ML VIAL SQ SCH ×2 (05:29→16:43)
[2020-04-20 06:51] LABS: Chol/HDL Ratio 4.7 (0-4.9); Cholesterol 183 mg/dL (< 200); HDL Cholesterol 39 mg/dL (40-59); Triglycerides 764 mg/dL (< 150)
[2020-04-20] MEDS: Acetaminophen 325 MG TABLET PO PRN ×3 (06:52→20:37)
[2020-04-20 09:02] LABS: BUN/Creatinine Ratio 16 (6-26); Blood Urea Nitrogen 22 mg/dL (6-20); Calcium 8.7 mg/dL (8.6-10.3); Carbon Dioxide 18 mEq/L (23-29); Chloride 102 mEq/L (98-107); Glucose 349 mg/dL (70-105); Osmolality,Calculated 293 (280-300); Potassium 4.6 mEq/L (3.5-5.1); Sodium 133 mEq/L (136-145); Troponin I < 0.03 ng/mL (< 0.04); eGFR For African Americans > 60 (> 60); eGFR For Non-African Americans 56 (> 60)
[2020-04-20] MEDS: Insulin LISPRO 300 UNITS/3 ML VIAL SQ SCH (09:47)
[2020-04-20] MEDS: Aspirin 81 MG TAB.CHEW PO SCH (09:47)
[2020-04-20] MEDS: Pregabalin 50 MG CAPSULE PO SCH ×2 (09:47→16:43)
[2020-04-20] MEDS: allopurinoL 100 MG TABLET PO SCH (09:48)
[2020-04-20] MEDS: Vitamin B Complex/Vit C/Vit E 1 EACH TABLET PO SCH (09:48)
[2020-04-20] MEDS: Thiamine (B-1) 100 MG TABLET PO SCH (09:48)
[2020-04-20] MEDS: Metoprolol XL (24 HR) Succ 50 MG TAB.ER.24H PO SCH (09:48)
[2020-04-20] MEDS: Folic Acid 1 MG TABLET PO SCH (09:48)
[2020-04-20] MEDS: Levothyroxine 25 MCG TABLET PO SCH (09:51)
[2020-04-20 10:52] LABS: LDL Cholesterol,Direct 48 mg/dL (75-193)
[2020-04-20 11:14] LABS: Estimated Average Glucose 318 mg/dl
[2020-04-20] MEDS: Nicotine 14 MG PATCH.TD24 TD SCH (12:41)
[2020-04-20] MEDS: Insulin NPH/REG 70/30 100 UNIT/ML (x5UNIT) SQ SCH ×2 (12:47→16:43)
[2020-04-20] MEDS ORDERED: 0.9 % Sodium Chloride 1,000 ML ONE (13:18)
[2020-04-20] MEDS: 0.9 % Sodium Chloride 1,000 ML IVC SCH (13:19)
[2020-04-21 05:14] LABS: Hematocrit 38.9 % (37.5-50.1); Mean Corpuscular HGB Conc 34.7 g/dL (31.6-35.5); Mean Corpuscular Hemoglobin 32.4 pg (28.0-33.3); Mean Corpuscular Volume 93.3 fL (83.0-100.0); Mean Platelet Volume 9.3 fL (9.4-12.4); Platelet Count 202 K/mcL (140-400); Red Blood Count 4.17 M/mcL (4.19-5.50); Red Cell Distribution Width 11.9 % (11.5-14.5)
[2020-04-21 05:15] LABS: Hemoglobin 13.5 g/dL (12.9-16.9)
[2020-04-21 05:31] LABS: Calcium 8.8 mg/dL (8.6-10.3)
[2020-04-21] MEDS: Levothyroxine 25 MCG TABLET PO SCH (05:31)
[2020-04-21] MEDS: *HR* Heparin 5,000 UNIT/ML VIAL SQ SCH ×2 (05:31→17:08)
[2020-04-21] MEDS: Insulin LISPRO 300 UNITS/3 ML VIAL SQ SCH (07:39)
[2020-04-21] MEDS: Insulin NPH/REG 70/30 100 UNIT/ML (x5UNIT) SQ SCH ×3 (07:57→17:07)
[2020-04-21] MEDS ORDERED: 0.9 % Sodium Chloride 1,000 ML IVC SCH (08:00)
[2020-04-21] MEDS ORDERED: Insulin NPH/REG 70/30 100 UNIT/ML (x5UNIT) SQ SCH ×2 (08:00→12:30)
[2020-04-21] MEDS: Aspirin 81 MG TAB.CHEW PO SCH (08:46)
[2020-04-21] MEDS: allopurinoL 100 MG TABLET PO SCH (08:46)
[2020-04-21] MEDS: Gabapentin 300 MG CAPSULE PO SCH ×3 (08:46→19:38)
[2020-04-21] MEDS: Folic Acid 1 MG TABLET PO SCH (08:46)
[2020-04-21] MEDS: Vitamin B Complex/Vit C/Vit E 1 EACH TABLET PO SCH (08:46)
[2020-04-21] MEDS: Metoprolol XL (24 HR) Succ 50 MG TAB.ER.24H PO SCH (08:46)
[2020-04-21] MEDS: Nicotine 14 MG PATCH.TD24 TD SCH (08:46)
[2020-04-21] MEDS: Thiamine (B-1) 100 MG TABLET PO SCH (08:47)
[2020-04-21] MEDS: Acetaminophen 325 MG TABLET PO PRN (20:07)
[2020-04-22 04:22] LABS: Hematocrit 40.3 % (37.5-50.1); Hemoglobin 13.8 g/dL (12.9-16.9); Mean Corpuscular HGB Conc 34.2 g/dL (31.6-35.5); Mean Corpuscular Volume 93.5 fL (83.0-100.0); Mean Platelet Volume 9.1 fL (9.4-12.4); Platelet Count 225 K/mcL (140-400); Red Blood Count 4.31 M/mcL (4.19-5.50); Red Cell Distribution Width 11.9 % (11.5-14.5); White Blood Count 3.6 K/mcL (4.3-11.1)
[2020-04-22 04:40] LABS: Albumin 2.9 g/dL (3.5-5.7); Albumin/Globulin Ratio 1.1 (1.1-2.2); BUN/Creatinine Ratio 18 (6-26); Bilirubin,Indirect 0.2 mg/dL (0.0-1.0); Bilirubin,Total 0.2 mg/dL (0.3-1.0); Blood Urea Nitrogen 26 mg/dL (6-20); Carbon Dioxide 27 mEq/L (23-29); Chloride 99 mEq/L (98-107); Globulin 2.7 g/dL (2.4-3.5); Glucose 119 mg/dL (70-105); Osmolality,Calculated 290 (280-300); Sodium 137 mEq/L (136-145); Total Protein 5.6 g/dL (6.4-8.9); eGFR For African Americans > 60 (> 60); eGFR For Non-African Americans 55 (> 60)
[2020-04-22] MEDS: Levothyroxine 25 MCG TABLET PO SCH (05:12)
[2020-04-22] MEDS: *HR* Heparin 5,000 UNIT/ML VIAL SQ SCH (05:12)
[2020-04-22 07:09] VITALS: BP 161/78
[2020-04-22] MEDS: Aspirin 81 MG TAB.CHEW PO SCH (08:21)
[2020-04-22] MEDS: Thiamine (B-1) 100 MG TABLET PO SCH (08:21)
[2020-04-22] MEDS: Folic Acid 1 MG TABLET PO SCH (08:21)
[2020-04-22] MEDS: allopurinoL 100 MG TABLET PO SCH (08:21)
[2020-04-22] MEDS: Vitamin B Complex/Vit C/Vit E 1 EACH TABLET PO SCH (08:21)
[2020-04-22] MEDS: Gabapentin 300 MG CAPSULE PO SCH (08:21)
[2020-04-22] MEDS: Metoprolol XL (24 HR) Succ 50 MG TAB.ER.24H PO SCH (08:21)
[2020-04-22] MEDS: Nicotine 14 MG PATCH.TD24 TD SCH (08:22)
[2020-04-22] MEDS: Insulin NPH/REG 70/30 100 UNIT/ML (x5UNIT) SQ SCH (08:29)
[2020-04-22] MEDS ORDERED: amLODIPine 5 MG TABLET PO SCH (09:00)
== END 2020-04-22 10:13 | disposition home or self-care (01) | DRG 65 ==
LOC: 3BNU → SUATTDRO 16:43
PROVIDERS: ADMIT Pharmacist; ATTEND Pharmacist

== ENCOUNTER 2021-01-08 13:13 | Observation (INO) ==
[2021-01-08] MEDS ORDERED: Naloxone 0.4 MG/ML INJ IVP PRN (16:00)
[2021-01-08] MEDS ORDERED: Ondansetron 4 MG/2 ML VIAL IVP PRN (16:00)
[2021-01-08] MEDS ORDERED: Acetaminophen 325 MG TABLET PO PRN (16:00)
[2021-01-08] MEDS ORDERED: Dextrose Gel 15 GM/37.5 ML TUBE PO PRN ×2 (16:03)
[2021-01-08] MEDS ORDERED: *HR* Dextrose 50 % in Water (Vial) 50 ML VIAL IVP PRN (16:03)
[2021-01-08] MEDS ORDERED: D5% in Water 1,000 ML IVC PRN (16:03)
[2021-01-08] MEDS ORDERED: *HR* LORazepam 2 MG/ML VIAL IVP PRN ×3 (16:05)
[2021-01-08] MEDS ORDERED: *HR* Labetalol 20 MG/4 ML SYRINGE IVP PRN (16:14)
[2021-01-08] MEDS ORDERED: Insulin LISPRO 300 UNITS/3 ML VIAL SUBQ SCH ×2 (16:30→21:00)
[2021-01-08 16:33] LABS: Hematocrit 42.6 % (37.5-50.1); Hemoglobin 14.9 g/dL (12.9-16.9); Red Blood Count 4.72 M/mcL (4.19-5.50); White Blood Count 7.6 K/mcL (4.3-11.1)
[2021-01-08 16:34] LABS: Basophils # 0.1 K/mcL (0.0-0.2); Basophils % 1.1 %; Eosinophils # 0.6 K/mcL (0.0-0.6); Eosinophils % 8.5 %; Immature Granulocytes % 0.4 % (0-4); Lymphocytes # 1.4 K/mcL (0.6-4.6); Lymphocytes % 17.9 %; Mean Corpuscular Hemoglobin 31.6 pg (28.0-33.3); Mean Corpuscular Volume 90.3 fL (83.0-100.0); Mean Platelet Volume 8.8 fL (9.4-12.4); Monocytes # 0.6 K/mcL (0.0-1.3); Monocytes % 7.9 %; Neutrophils # 4.9 K/mcL (1.6-8.9); Platelet Count 293 K/mcL (140-400); Red Cell Distribution Width 11.7 % (11.5-14.5); Segmented Neutrophils % 64.2 %
[2021-01-08 16:51] LABS: BUN/Creatinine Ratio 15 (6-26); Blood Urea Nitrogen 28 mg/dL (6-20); Calcium 8.9 mg/dL (8.6-10.3); Carbon Dioxide 23 mEq/L (23-29); Chloride 99 mEq/L (98-107); Ethanol < 10 mg/dL (Less than 10); Glucose 253 mg/dL (70-105); Osmolality,Calculated 282 (280-300); Potassium 4.4 mEq/L (3.5-5.1); Sodium 129 mEq/L (136-145); eGFR For African Americans 47 (> 60); eGFR For Non-African Americans 39 (> 60)
[2021-01-08 16:52] LABS: Troponin I < 0.03 ng/mL (< 0.04)
[2021-01-08 16:54] LABS: Chol/HDL Ratio 4.7 (0-4.9); Cholesterol 185 mg/dL (< 200); HDL Cholesterol 39 mg/dL (40-59); Triglycerides 628 mg/dL (< 150)
[2021-01-08 17:04] LABS: Thyroid Stimulating Hormone 4.848 mcIU/mL (0.340-5.600)
[2021-01-08 17:21] LABS: Folate > 22.3 ng/mL (3.0-16.0); Vitamin B12 644 pg/mL (250-1100)
[2021-01-08 17:24] LABS: Estimated Average Glucose 260 mg/dl; Hemoglobin A1C 10.7 %
[2021-01-08] MEDS ORDERED: Folic Acid 1 MG in 0.9 % Sodium Chloride 50 ML IVPB SCH (18:00)
[2021-01-08] MEDS ORDERED: Thiamine (B-1) 100 MG in 0.9 % Sodium Chloride 50 ML IVPB SCH (18:00)
[2021-01-08] MEDS ORDERED: Thiamine (B-1) 100 MG, Folic Acid 1 MG, MVI, adult with vitamin K 10 ML in 0.9 % Sodi... IVPB SCH (18:00)
[2021-01-08] MEDS: Insulin NPH/REG 70/30 100 UNIT/ML (x5UNIT) SUBQ SCH (18:19)
[2021-01-08 22:23] LABS: Amphetamine Screen,Urine Negative ng/mL (Cutoff=1000); Barbiturate Screen,Urine Negative ng/mL (Cutoff=200); Benzodiazepines Screen,Urine Negative ng/mL (Cutoff=200); Cannabinoid Screen,Urine Negative ng/mL (Cutoff = 50); Cocaine Screen,Urine Negative ng/mL (Cutoff= 300); Opiate Screen,Urine Negative ng/mL (Cutoff=300); Phencyclidine Screen,Urine Negative ng/mL (Cutoff=25)
[2021-01-08 22:28] LABS: Bilirubin,Urine Negative (Negative); Blood,Urine Negative (Negative); Clarity,Urine Clear (Clear); Color,Urine Colorless (Yellow); Glucose,Urine (UA) >=1000 mg/dL (Normal); Ketones,Urine Negative (Negative); Leukocyte Esterase,Urine Negative (Negative); Nitrite,Urine Negative (Negative); Protein,Urine >=300 mg/dL (Neg-Trace); RBC,Urine 0-3 per hpf (0-3); Specific Gravity,Urine 1.015 (1.010-1.025); Urobilinogen,Urine Normal (Normal); WBC,Urine 0-3 per hpf (0-3)
[2021-01-08] MEDS ORDERED: Insulin LISPRO 300 UNITS/3 ML VIAL SUBQ ONE (23:23)
[2021-01-09 02:27] LABS: Hematocrit 37.8 % (37.5-50.1); Mean Corpuscular HGB Conc 34.9 g/dL (31.6-35.5); Mean Corpuscular Hemoglobin 31.7 pg (28.0-33.3); Mean Corpuscular Volume 90.9 fL (83.0-100.0); Mean Platelet Volume 8.7 fL (9.4-12.4); Platelet Count 243 K/mcL (140-400); Red Blood Count 4.16 M/mcL (4.19-5.50); Red Cell Distribution Width 11.8 % (11.5-14.5); White Blood Count 6.5 K/mcL (4.3-11.1)
[2021-01-09 02:31] LABS: Hemoglobin 13.2 g/dL (12.9-16.9)
[2021-01-09 02:57] LABS: Albumin/Globulin Ratio 1.2 (1.1-2.2); Bilirubin,Total 0.3 mg/dL (0.3-1.0); Calcium 8.5 mg/dL (8.6-10.3); Globulin 2.5 g/dL (2.4-3.5); Potassium 4.1 mEq/L (3.5-5.1); Total Protein 5.5 g/dL (6.4-8.9)
[2021-01-09] MEDS: Levothyroxine 25 MCG TABLET PO SCH (05:06)
[2021-01-09] MEDS ORDERED: Metoprolol XL (24 HR) Succ 50 MG TAB.ER.24H PO SCH (09:00)
[2021-01-09] MEDS ORDERED: Spironolactone 25 MG TABLET PO SCH (09:00)
[2021-01-09] MEDS ORDERED: Vitamin B Complex/Vit C/Vit E 1 EACH TABLET PO SCH (09:00)
[2021-01-09] MEDS ORDERED: Furosemide 40 MG TABLET PO SCH (09:00)
[2021-01-09] MEDS ORDERED: Aspirin Enteric Coated 81 MG Tablet PO SCH (09:00)
[2021-01-09] MEDS ORDERED: Thiamine (B-1) 100 MG TABLET PO SCH (09:00)
[2021-01-09] MEDS: Insulin NPH/REG 70/30 100 UNIT/ML (x5UNIT) SUBQ SCH ×2 (10:56→17:01)
[2021-01-09] MEDS ORDERED: cloNIDine HCL 0.1 MG TABLET PO PRN (11:11)
[2021-01-09] MEDS ORDERED: Insulin LISPRO 300 UNITS/3 ML VIAL SUBQ SCH ×3 (11:30→21:00)
[2021-01-09] MEDS: Thiamine (B-1) 100 MG TABLET PO SCH (15:13)
[2021-01-09] MEDS: Folic Acid 1 MG TABLET PO SCH (15:13)
[2021-01-09] MEDS: Gabapentin 300 MG CAPSULE PO SCH ×2 (15:13→23:03)
[2021-01-09] MEDS: Insulin LISPRO 300 UNITS/3 ML VIAL SUBQ SCH (17:01)
[2021-01-10 03:29] LABS: Basophils # 0.1 K/mcL (0.0-0.2); Basophils % 1.1 %; Eosinophils # 0.6 K/mcL (0.0-0.6); Eosinophils % 7.7 %; Hematocrit 39.3 % (37.5-50.1); Hemoglobin 13.3 g/dL (12.9-16.9); Immature Granulocytes % 0.4 % (0-4); Lymphocytes # 1.2 K/mcL (0.6-4.6); Lymphocytes % 15.4 %; Mean Corpuscular HGB Conc 33.8 g/dL (31.6-35.5); Mean Corpuscular Hemoglobin 31.1 pg (28.0-33.3); Mean Corpuscular Volume 91.8 fL (83.0-100.0); Monocytes # 0.6 K/mcL (0.0-1.3); Monocytes % 7.7 %; Neutrophils # 5.1 K/mcL (1.6-8.9); Platelet Count 279 K/mcL (140-400); Red Blood Count 4.28 M/mcL (4.19-5.50); Red Cell Distribution Width 11.5 % (11.5-14.5); Segmented Neutrophils % 67.7 %; White Blood Count 7.6 K/mcL (4.3-11.1)
[2021-01-10 03:47] LABS: Calcium 9.1 mg/dL (8.6-10.3); Potassium 4.2 mEq/L (3.5-5.1)
[2021-01-10] MEDS: Levothyroxine 25 MCG TABLET PO SCH (06:27)
[2021-01-10] MEDS ORDERED: 0.9 % Sodium Chloride 1,000 ML IVC ONE (07:13)
[2021-01-10] MEDS: Folic Acid 1 MG TABLET PO SCH (08:05)
[2021-01-10] MEDS: Gabapentin 300 MG CAPSULE PO SCH (08:05)
[2021-01-10] MEDS: Thiamine (B-1) 100 MG TABLET PO SCH (08:05)
[2021-01-10] MEDS: Insulin NPH/REG 70/30 100 UNIT/ML (x5UNIT) SUBQ SCH ×2 (08:12→12:07)
[2021-01-10] MEDS: Insulin LISPRO 300 UNITS/3 ML VIAL SUBQ SCH ×2 (08:12→12:03)
[2021-01-10] MEDS ORDERED: amLODIPine 5 MG TABLET PO SCH (09:00)
[2021-01-10 11:57] VITALS: BP 162/90
[2021-01-10 12:13] LABS: Calcium 9.1 mg/dL (8.6-10.3); Potassium 4.9 mEq/L (3.5-5.1)
== END 2021-01-10 13:48 | disposition home or self-care (01) ==
LOC: 2ANU → SUATTDRO 15:20
PROVIDERS: ADMIT Internal Medicine; ATTEND Family Medicine

== ENCOUNTER 2022-05-08 16:08 | Observation (INO) ==
[2022-05-08 17:54] LABS: Hemoglobin 13.1 g/dL (12.9-16.9); Mean Corpuscular HGB Conc 34.5 g/dL (31.6-35.5); Mean Corpuscular Hemoglobin 31.6 pg (28.0-33.3); Mean Corpuscular Volume 91.8 fL (83.0-100.0); Mean Platelet Volume 8.8 fL (9.4-12.4); Platelet Count 285 K/mcL (140-400); Red Blood Count 4.14 M/mcL (4.19-5.50); Red Cell Distribution Width 12.5 % (11.5-14.5); White Blood Count 8.5 K/mcL (4.3-11.1)
[2022-05-08 18:11] LABS: Calcium 8.5 mg/dL (8.6-10.3); Potassium 5.1 mEq/L (3.5-5.1)
[2022-05-08 19:50] LABS: Bacteria,Urine Few per hpf (None-Few); Bilirubin,Urine Negative (Negative); Blood,Urine Trace (Negative); Clarity,Urine Clear (Clear); Color,Urine Light-Yellow (Yellow); Glucose,Urine (UA) >=1000 mg/dL (Normal); Ketones,Urine Negative (Negative); Leukocyte Esterase,Urine Negative (Negative); Nitrite,Urine Negative (Negative); Protein,Urine >=300 mg/dL (Neg-Trace); RBC,Urine 0-3 per hpf (0-3); Urobilinogen,Urine Normal (Normal); WBC,Urine 0-3 per hpf (0-3)
[2022-05-08] MEDS ORDERED: Melatonin 3 MG TABLET PO PRN (20:59)
[2022-05-08] MEDS ORDERED: Naloxone 0.4 MG/ML INJ IVP PRN (20:59)
[2022-05-08] MEDS ORDERED: Acetaminophen 325 MG TABLET PO PRN (20:59)
[2022-05-08] MEDS ORDERED: Ondansetron 4 MG/2 ML VIAL IVP PRN (20:59)
[2022-05-08] MEDS ORDERED: 0.9 % Sodium Chloride 1,000 ML IVC ONE (21:02)
[2022-05-08] MEDS ORDERED: D5% in Water 1,000 ML IVC PRN (21:03)
[2022-05-08] MEDS ORDERED: *HR* Dextrose 50 % in Water (Syg) 50 ML SYRINGE IVP PRN (21:03)
[2022-05-08] MEDS ORDERED: Dextrose Gel 15 GM/37.5 ML TUBE PO PRN ×2 (21:03)
[2022-05-08] MEDS ORDERED: Insulin LISPRO 300 UNITS/3 ML VIAL SUBQ SCH (21:15)
[2022-05-09] MEDS ORDERED: 0.9 % Sodium Chloride 1,000 ML IVC ONE ×2 (00:58→05:12)
[2022-05-09] MEDS ORDERED: *HR* HYDROcodone/Acet 5/325 mg TABLET PO PRN ×2 (00:59→09:41)
[2022-05-09 03:55] LABS: Basophils # 0.1 K/mcL (0.0-0.2); Eosinophils # 0.6 K/mcL (0.0-0.6); Hematocrit 35.2 % (37.5-50.1); Hemoglobin 11.9 g/dL (12.9-16.9); Immature Granulocytes % 0.7 % (0-4); Lymphocytes # 1.2 K/mcL (0.6-4.6); Lymphocytes % 17.3 %; Mean Corpuscular HGB Conc 33.8 g/dL (31.6-35.5); Mean Corpuscular Hemoglobin 31.8 pg (28.0-33.3); Mean Corpuscular Volume 94.1 fL (83.0-100.0); Mean Platelet Volume 9.1 fL (9.4-12.4); Monocytes # 0.6 K/mcL (0.0-1.3); Monocytes % 8.1 %; Neutrophils # 4.6 K/mcL (1.6-8.9); Platelet Count 251 K/mcL (140-400); Red Blood Count 3.74 M/mcL (4.19-5.50); Red Cell Distribution Width 12.4 % (11.5-14.5); Segmented Neutrophils % 63.9 %; White Blood Count 7.2 K/mcL (4.3-11.1)
[2022-05-09 04:16] LABS: Albumin 2.7 g/dL (3.5-5.7); Bilirubin,Total 0.2 mg/dL (0.3-1.0); Calcium 8.2 mg/dL (8.6-10.3); Globulin 2.6 g/dL (2.4-3.5); Magnesium 1.8 mg/dL (1.6-2.6); Phosphorous 4.7 mg/dL (2.7-4.5); Potassium 4.2 mEq/L (3.5-5.1); Total Protein 5.3 g/dL (6.4-8.9)
[2022-05-09] MEDS ORDERED: cloNIDine HCL 0.1 MG TABLET PO PRN (05:17)
[2022-05-09] MEDS ORDERED: Gadolinium Contrast Agent (WT Based) IV PRN (05:31)
[2022-05-09] MEDS: *HR* Heparin 5,000 UNIT/ML VIAL SQ SCH ×2 (06:28→17:19)
[2022-05-09] MEDS ORDERED: Insulin LISPRO 300 UNITS/3 ML VIAL SUBQ SCH (07:30)
[2022-05-09] MEDS: Insulin LISPRO 300 UNITS/3 ML VIAL SUBQ SCH ×3 (08:25→17:19)
[2022-05-09] MEDS: Aspirin 81 MG TAB.CHEW PO SCH (08:26)
[2022-05-09] MEDS: Thiamine (B-1) 100 MG TABLET PO SCH (08:26)
[2022-05-09] MEDS: Folic Acid 1 MG TABLET PO SCH (08:26)
[2022-05-09] MEDS: Vitamin B Complex/Vit C/Vit E 1 EACH TABLET PO SCH (08:26)
[2022-05-09] MEDS: cloNIDine HCL 0.1 MG TABLET PO SCH ×3 (08:27→20:40)
[2022-05-09] MEDS: Insulin DETEMIR 100 UNIT/ML X5UNITS SUBQ SCH ×2 (08:40→20:40)
[2022-05-09] MEDS ORDERED: amLODIPine 5 MG TABLET PO SCH (09:00)
[2022-05-09] MEDS: Nicotine 14 MG PATCH.TD24 TD SCH (12:01)
[2022-05-09] MEDS: hydrALAZINE 25 MG TABLET PO SCH ×2 (12:01→20:39)
[2022-05-09 12:23] LABS: Sodium, Urine 79.2 mEq/L
[2022-05-09 13:07] LABS: Protein/Creatinine Ratio,Urine 19.19 mg/mg (0.00-0.20)
[2022-05-09] MEDS ORDERED: *HR* LORazepam 2 MG/ML VIAL IVP PRN ×3 (14:28)
[2022-05-09] MEDS: Gabapentin 300 MG CAPSULE PO SCH ×2 (15:42→20:40)
[2022-05-09] MEDS: Sodium Bicarbonate 75 MEQ in 0.45 % Sodium Chloride 1,000 ML IVC SCH (16:15)
[2022-05-10 02:45] LABS: Basophils # 0.1 K/mcL (0.0-0.2); Basophils % 1.1 %; Eosinophils # 0.7 K/mcL (0.0-0.6); Eosinophils % 9.4 %; Hemoglobin 12.5 g/dL (12.9-16.9); Immature Granulocytes % 0.8 % (0-4); Lymphocytes # 1.2 K/mcL (0.6-4.6); Lymphocytes % 17.1 %; Mean Corpuscular HGB Conc 33.8 g/dL (31.6-35.5); Mean Corpuscular Hemoglobin 31.6 pg (28.0-33.3); Mean Corpuscular Volume 93.4 fL (83.0-100.0); Mean Platelet Volume 8.7 fL (9.4-12.4); Monocytes # 0.6 K/mcL (0.0-1.3); Neutrophils # 4.6 K/mcL (1.6-8.9); Platelet Count 231 K/mcL (140-400); Red Blood Count 3.96 M/mcL (4.19-5.50); Red Cell Distribution Width 12.4 % (11.5-14.5); Segmented Neutrophils % 63.6 %; White Blood Count 7.2 K/mcL (4.3-11.1)
[2022-05-10 02:56] LABS: Alanine Aminotransferase 17 Units/L (7-52); Albumin 2.9 g/dL (3.5-5.7); Albumin/Globulin Ratio 1.1 (1.1-2.2); Alkaline Phosphatase 95 Units/L (34-104); Aspartate Amino Transferase 16 Units/L (13-39); BUN/Creatinine Ratio 12 (6-26); Bilirubin,Direct 0.1 mg/dL (0.0-0.2); Bilirubin,Indirect 0.1 mg/dL (0.0-1.0); Bilirubin,Total 0.2 mg/dL (0.3-1.0); Blood Urea Nitrogen 39 mg/dL (6-20); Calcium 8.5 mg/dL (8.6-10.3); Carbon Dioxide 20 mEq/L (23-29); Chloride 103 mEq/L (98-107); Chol/HDL Ratio 4.8 (0-4.9); Cholesterol 169 mg/dL (< 200); Globulin 2.6 g/dL (2.4-3.5); Glucose 354 mg/dL (70-105); HDL Cholesterol 35 mg/dL (40-59); Magnesium 1.8 mg/dL (1.6-2.6); Osmolality,Calculated 296 (280-300); Phosphorous 4.6 mg/dL (2.7-4.5); Potassium 4.8 mEq/L (3.5-5.1); Sodium 131 mEq/L (136-145); Total Protein 5.5 g/dL (6.4-8.9); Triglycerides 670 mg/dL (< 150); eGFR For African Americans 26 (> 60); eGFR For Non-African Americans 22 (> 60)
[2022-05-10 03:01] LABS: INR 0.8
[2022-05-10 03:07] LABS: Prothrombin Time 8.8 Seconds (9.4-12.1)
[2022-05-10 03:08] LABS: LDL Cholesterol,Direct 60 mg/dL (75-193)
[2022-05-10 04:13] LABS: Estimated Average Glucose 209 mg/dl; Hemoglobin A1C 8.9 %
[2022-05-10] MEDS: Sodium Bicarbonate 75 MEQ in 0.45 % Sodium Chloride 1,000 ML IVC SCH (05:42)
[2022-05-10] MEDS: *HR* Heparin 5,000 UNIT/ML VIAL SQ SCH (05:42)
[2022-05-10] MEDS ORDERED: Insulin LISPRO 300 UNITS/3 ML VIAL SUBQ SCH ×2 (07:16→21:00)
[2022-05-10 07:30] VITALS: BP 159/81; PULSE 94; TEMP 97.7; O2SAT 98
[2022-05-10] MEDS: Nicotine 14 MG PATCH.TD24 TD SCH (08:15)
[2022-05-10] MEDS: hydrALAZINE 25 MG TABLET PO SCH (08:16)
[2022-05-10] MEDS: Folic Acid 1 MG TABLET PO SCH (08:16)
[2022-05-10] MEDS: Thiamine (B-1) 100 MG TABLET PO SCH (08:16)
[2022-05-10] MEDS: Gabapentin 300 MG CAPSULE PO SCH (08:16)
[2022-05-10] MEDS: Vitamin B Complex/Vit C/Vit E 1 EACH TABLET PO SCH (08:17)
[2022-05-10] MEDS: cloNIDine HCL 0.1 MG TABLET PO SCH (08:17)
[2022-05-10] MEDS: Aspirin 81 MG TAB.CHEW PO SCH (08:17)
[2022-05-10] MEDS ORDERED: Nicotine 14 MG PATCH.TD24 TD SCH (09:00)
[2022-05-10] MEDS ORDERED: Metoprolol XL (24 HR) Succ 50 MG TAB.ER.24H PO SCH (09:00)
[2022-05-10] MEDS ORDERED: Finerenone [Kerendia] 10 MG Tablet PO SCH (09:00)
[2022-05-10] MEDS ORDERED: Loratadine 10 MG TABLET PO SCH (09:00)
[2022-05-10] MEDS ORDERED: Vitamin B Complex/Vit C/Vit E 1 EACH TABLET PO SCH (09:00)
[2022-05-10] MEDS ORDERED: Insulin DETEMIR 100 UNIT/ML X5UNITS SUBQ SCH (09:00)
[2022-05-12] MEDS ORDERED: Ergocalciferol (VIT D2) 50,000 UNIT (1.25MG) CAP PO SCH (09:00)
== END 2022-05-10 11:01 | disposition home or self-care (01) ==
LOC: 2ANU 16:08 → EMEROOARM 16:08 → SUATTDRO 19:47 → 2ANU 20:51
PROVIDERS: ADMIT Internal Medicine; ATTEND Family Medicine

== ENCOUNTER 2022-08-29 11:52 | Inpatient (IN) ==
[2022-08-29 14:36] LABS: Basophils # 0.1 K/mcL (0.0-0.2); Basophils % 0.8 %; Eosinophils # 1.1 K/mcL (0.0-0.6); Eosinophils % 11.1 %; Hematocrit 36.2 % (37.5-50.1); Hemoglobin 12.1 g/dL (12.9-16.9); Immature Granulocytes % 0.3 % (0-4); Lymphocytes # 1.2 K/mcL (0.6-4.6); Lymphocytes % 12.9 %; Mean Corpuscular HGB Conc 33.4 g/dL (31.6-35.5); Mean Corpuscular Hemoglobin 30.2 pg (28.0-33.3); Mean Corpuscular Volume 90.3 fL (83.0-100.0); Mean Platelet Volume 8.5 fL (9.4-12.4); Monocytes # 0.8 K/mcL (0.0-1.3); Neutrophils # 6.4 K/mcL (1.6-8.9); Platelet Count 304 K/mcL (140-400); Red Blood Count 4.01 M/mcL (4.19-5.50); Red Cell Distribution Width 13.7 % (11.5-14.5); Segmented Neutrophils % 66.9 %; White Blood Count 9.6 K/mcL (4.3-11.1)
[2022-08-29 14:55] LABS: BUN/Creatinine Ratio 8 (6-26); Blood Urea Nitrogen 49 mg/dL (6-20); Calcium 8.4 mg/dL (8.6-10.3); Carbon Dioxide 20 mEq/L (23-29); Chloride 105 mEq/L (98-107); Glucose 234 mg/dL (70-105); Osmolality,Calculated 299 (280-300); Potassium 4.7 mEq/L (3.5-5.1); Sodium 134 mEq/L (136-145)
[2022-08-29 14:56] LABS: Troponin I < 0.03 ng/mL (< 0.04)
[2022-08-29] MEDS ORDERED: *HR* OxyCODONE/APAP 5/325 TABLET PO ONE (15:09)
[2022-08-29] MEDS ORDERED: Ondansetron ODT 4 MG TAB.RAPDIS SL PRN (15:54)
[2022-08-29] MEDS ORDERED: Naloxone 0.4 MG/ML INJ IVP PRN (15:54)
[2022-08-29] MEDS ORDERED: Acetaminophen 325 MG TABLET PO PRN (15:54)
[2022-08-29] MEDS ORDERED: *HR* Dextrose 50 % in Water (Syg) 50 ML SYRINGE IVP PRN (18:24)
[2022-08-29] MEDS ORDERED: D5% in Water 1,000 ML IVC PRN (18:24)
[2022-08-29] MEDS ORDERED: Dextrose Gel 15 GM/37.5 ML TUBE PO PRN ×2 (18:24)
[2022-08-29 18:41] LABS: Bilirubin,Urine Negative (Negative); Blood,Urine Small (Negative); Clarity,Urine Clear (Clear); Color,Urine Light-Yellow (Yellow); Glucose,Urine (UA) >=1000 mg/dL (Normal); Ketones,Urine Negative (Negative); Leukocyte Esterase,Urine Negative (Negative); Mucus,Urine Few per lpf (None-Few); Nitrite,Urine Negative (Negative); PH,Urine 6.5 pH Units (5.0-8.0); Protein,Urine >=600 mg/dL (Neg-Trace); RBC,Urine 0-3 per hpf (0-3); Specific Gravity,Urine 1.015 (1.010-1.025); Squamous Epithelial Cell,Urine Few per hpf (None-Few); Urobilinogen,Urine Normal (Normal)
[2022-08-29 18:58] LABS: Hepatitis B Surface Antibody < 3.10 mIU/mL
[2022-08-29 19:09] LABS: Hepatitis B Surface Antigen Nonreactive (Nonreactive)
[2022-08-29] MEDS ORDERED: Insulin NPH/REG 70/30 100 UNIT/ML (x5UNIT) SUBQ SCH (21:00)
[2022-08-29] MEDS ORDERED: Famotidine 20 MG TABLET PO SCH (21:00)
[2022-08-29] MEDS: Furosemide 40 MG/4 ML VIAL IVP SCH (22:27)
[2022-08-29] MEDS: *HR* Heparin 5,000 UNIT/ML VIAL SQ SCH (22:28)
[2022-08-29] MEDS: Insulin LISPRO 300 UNITS/3 ML VIAL SUBQ SCH (22:45)
[2022-08-30 02:36] LABS: Hematocrit 32.2 % (37.5-50.1); Hemoglobin 10.7 g/dL (12.9-16.9); Mean Corpuscular HGB Conc 33.2 g/dL (31.6-35.5); Mean Corpuscular Hemoglobin 29.6 pg (28.0-33.3); Mean Corpuscular Volume 89.2 fL (83.0-100.0); Mean Platelet Volume 8.5 fL (9.4-12.4); Platelet Count 246 K/mcL (140-400); Red Blood Count 3.61 M/mcL (4.19-5.50); Red Cell Distribution Width 13.6 % (11.5-14.5); White Blood Count 9.3 K/mcL (4.3-11.1)
[2022-08-30 02:55] LABS: Calcium 7.8 mg/dL (8.6-10.3); Magnesium 1.9 mg/dL (1.6-2.6); Potassium 4.5 mEq/L (3.5-5.1)
[2022-08-30] MEDS: *HR* Heparin 5,000 UNIT/ML VIAL SQ SCH ×3 (06:50→21:21)
[2022-08-30] MEDS: Furosemide 40 MG/4 ML VIAL IVP SCH ×3 (08:44→21:20)
[2022-08-30] MEDS: Insulin LISPRO 300 UNITS/3 ML VIAL SUBQ SCH ×4 (09:19→21:00)
[2022-08-30] MEDS: Insulin NPH/REG 70/30 100 UNIT/ML (x5UNIT) SUBQ SCH ×4 (09:19→21:00)
[2022-08-30] MEDS: Aspirin 81 MG TAB.CHEW PO SCH (09:20)
[2022-08-30] MEDS: amLODIPine 5 MG TABLET PO SCH (09:20)
[2022-08-30] MEDS: Vitamin B Complex/Vit C/Vit E 1 EACH TABLET PO SCH (09:20)
[2022-08-30] MEDS: Loratadine 10 MG TABLET PO SCH (09:20)
[2022-08-30] MEDS: Metoprolol XL (24 HR) Succ 50 MG TAB.ER.24H PO SCH (09:20)
[2022-08-30] MEDS ORDERED: Naloxone 0.4 MG/ML INJ IVP PRN (13:24)
[2022-08-30] MEDS: *HR* HYDROcodone/Acet 5/325 mg TABLET PO PRN ×2 (14:01→21:34)
[2022-08-30] MEDS: Famotidine 20 MG TABLET PO SCH (21:20)
[2022-08-31] MEDS: *HR* Heparin 5,000 UNIT/ML VIAL SQ SCH ×3 (06:48→21:36)
[2022-08-31 07:31] LABS: Hematocrit 34.4 % (37.5-50.1); Hemoglobin 11.7 g/dL (12.9-16.9); Mean Corpuscular Hemoglobin 30.7 pg (28.0-33.3); Mean Corpuscular Volume 90.3 fL (83.0-100.0); Mean Platelet Volume 8.1 fL (9.4-12.4); Platelet Count 279 K/mcL (140-400); Red Blood Count 3.81 M/mcL (4.19-5.50); Red Cell Distribution Width 14.1 % (11.5-14.5); White Blood Count 7.7 K/mcL (4.3-11.1)
[2022-08-31] MEDS: Insulin LISPRO 300 UNITS/3 ML VIAL SUBQ SCH ×4 (07:34→21:38)
[2022-08-31 08:06] LABS: Calcium 8.2 mg/dL (8.6-10.3); Potassium 4.4 mEq/L (3.5-5.1)
[2022-08-31] MEDS: Furosemide 40 MG/4 ML VIAL IVP SCH ×2 (08:40→21:38)
[2022-08-31] MEDS: Metoprolol XL (24 HR) Succ 50 MG TAB.ER.24H PO SCH (08:43)
[2022-08-31] MEDS: amLODIPine 5 MG TABLET PO SCH (08:43)
[2022-08-31] MEDS: Loratadine 10 MG TABLET PO SCH (08:43)
[2022-08-31] MEDS: Vitamin B Complex/Vit C/Vit E 1 EACH TABLET PO SCH (08:43)
[2022-08-31] MEDS: Gabapentin 300 MG CAPSULE PO SCH (08:43)
[2022-08-31] MEDS: Aspirin 81 MG TAB.CHEW PO SCH (08:43)
[2022-08-31] MEDS: Insulin NPH/REG 70/30 100 UNIT/ML (x5UNIT) SUBQ SCH ×3 (11:02→21:37)
[2022-08-31] MEDS: Calcium Acetate 667 MG CAPSULE PO SCH ×2 (12:54→18:08)
[2022-08-31] MEDS: *HR* HYDROcodone/Acet 5/325 mg TABLET PO PRN (18:08)
[2022-08-31] MEDS: Famotidine 20 MG TABLET PO SCH (21:37)
[2022-09-01] MEDS: *HR* Heparin 5,000 UNIT/ML VIAL SQ SCH ×3 (06:03→20:01)
[2022-09-01 06:12] LABS: Hematocrit 36.1 % (37.5-50.1); Hemoglobin 12.6 g/dL (12.9-16.9); Mean Corpuscular HGB Conc 34.9 g/dL (31.6-35.5); Mean Corpuscular Hemoglobin 30.3 pg (28.0-33.3); Mean Corpuscular Volume 86.8 fL (83.0-100.0); Mean Platelet Volume 8.7 fL (9.4-12.4); Platelet Count 256 K/mcL (140-400); Red Blood Count 4.16 M/mcL (4.19-5.50); Red Cell Distribution Width 13.7 % (11.5-14.5)
[2022-09-01 06:32] LABS: Bilirubin,Direct 0.1 mg/dL (0.0-0.2); Bilirubin,Indirect 0.2 mg/dL (0.0-1.0); Bilirubin,Total 0.3 mg/dL (0.3-1.0); Globulin 2.9 g/dL (2.4-3.5); Total Protein 5.9 g/dL (6.4-8.9)
[2022-09-01 06:33] LABS: Phosphorous 8.2 mg/dL (2.7-4.5)
[2022-09-01] MEDS ORDERED: 0.9 % Sodium Chloride 250 ML IVC PRN (08:08)
[2022-09-01] MEDS ORDERED: *HR* Heparin 10,000 UNIT/10 ML VIAL IV PRN (08:08)
[2022-09-01] MEDS ORDERED: Ethyl Chloride Spray Bottle (104 SPRAY/BOTTLE) TP PRN (08:08)
[2022-09-01] MEDS ORDERED: 0.9 % Sodium Chloride 2,000 ML PRIME SCH (08:15)
[2022-09-01] MEDS: Calcium Acetate 667 MG CAPSULE PO SCH ×4 (08:27→16:50)
[2022-09-01] MEDS: Insulin NPH/REG 70/30 100 UNIT/ML (x5UNIT) SUBQ SCH ×4 (08:27→20:01)
[2022-09-01 08:29] LABS: Calcium 8.4 mg/dL (8.6-10.3); Potassium 5.4 mEq/L (3.5-5.1)
[2022-09-01] MEDS: Vitamin B Complex/Vit C/Vit E 1 EACH TABLET PO SCH (08:42)
[2022-09-01] MEDS: Gabapentin 300 MG CAPSULE PO SCH (08:42)
[2022-09-01] MEDS: Aspirin 81 MG TAB.CHEW PO SCH (08:42)
[2022-09-01] MEDS: Loratadine 10 MG TABLET PO SCH (08:42)
[2022-09-01] MEDS: Insulin LISPRO 300 UNITS/3 ML VIAL SUBQ SCH ×5 (08:51→19:50)
[2022-09-01] MEDS ORDERED: Ergocalciferol (VIT D2) 50,000 UNIT (1.25MG) CAP PO SCH (09:00)
[2022-09-01] MEDS: Furosemide 40 MG/4 ML VIAL IVP SCH (12:27)
[2022-09-01] MEDS: *HR* HYDROcodone/Acet 5/325 mg TABLET PO PRN (12:27)
[2022-09-01] MEDS: Cholecalciferol (D-3) 1,000 UNIT (25MCG) TABLET PO SCH (12:27)
[2022-09-01] MEDS: Metoprolol XL (24 HR) Succ 50 MG TAB.ER.24H PO SCH (12:27)
[2022-09-01] MEDS: amLODIPine 5 MG TABLET PO SCH (12:27)
[2022-09-01] MEDS ORDERED: SODIUM ZIRCONIUM CYCLOSILICATE 5 GM POWD.PACK PO ONE (13:15)
[2022-09-01] MEDS: Furosemide 40 MG TABLET PO SCH (16:50)
[2022-09-01] MEDS: Famotidine 20 MG TABLET PO SCH (19:48)
[2022-09-02 03:17] LABS: Hematocrit 32.1 % (37.5-50.1); Mean Corpuscular Hemoglobin 30.2 pg (28.0-33.3); Mean Corpuscular Volume 88.9 fL (83.0-100.0); Mean Platelet Volume 8.3 fL (9.4-12.4); Platelet Count 259 K/mcL (140-400); Red Blood Count 3.61 M/mcL (4.19-5.50); Red Cell Distribution Width 13.6 % (11.5-14.5); White Blood Count 6.1 K/mcL (4.3-11.1)
[2022-09-02 03:25] LABS: Magnesium 1.9 mg/dL (1.6-2.6)
[2022-09-02 03:26] LABS: Calcium 8.4 mg/dL (8.6-10.3); Potassium 3.7 mEq/L (3.5-5.1)
[2022-09-02 03:30] LABS: Hemoglobin 10.9 g/dL (12.9-16.9)
[2022-09-02] MEDS: *HR* Heparin 5,000 UNIT/ML VIAL SQ SCH ×3 (05:22→21:09)
[2022-09-02] MEDS: *HR* HYDROcodone/Acet 5/325 mg TABLET PO PRN (07:37)
[2022-09-02] MEDS: Insulin LISPRO 300 UNITS/3 ML VIAL SUBQ SCH ×4 (07:55→21:10)
[2022-09-02] MEDS ORDERED: 0.9 % Sodium Chloride 250 ML IVC PRN (07:57)
[2022-09-02] MEDS ORDERED: *HR* Heparin 10,000 UNIT/10 ML VIAL IV PRN (07:57)
[2022-09-02] MEDS: Cholecalciferol (D-3) 1,000 UNIT (25MCG) TABLET PO SCH (08:04)
[2022-09-02] MEDS: Aspirin 81 MG TAB.CHEW PO SCH (08:04)
[2022-09-02] MEDS: Calcium Acetate 667 MG CAPSULE PO SCH ×3 (08:04→16:32)
[2022-09-02] MEDS: Loratadine 10 MG TABLET PO SCH (08:05)
[2022-09-02] MEDS: Furosemide 40 MG TABLET PO SCH ×2 (08:05→16:32)
[2022-09-02] MEDS: Vitamin B Complex/Vit C/Vit E 1 EACH TABLET PO SCH (08:05)
[2022-09-02] MEDS: Metoprolol XL (24 HR) Succ 50 MG TAB.ER.24H PO SCH (08:05)
[2022-09-02] MEDS: Gabapentin 300 MG CAPSULE PO SCH (08:05)
[2022-09-02] MEDS: amLODIPine 5 MG TABLET PO SCH ×2 (08:11→09:43)
[2022-09-02] MEDS: Insulin NPH/REG 70/30 100 UNIT/ML (x5UNIT) SUBQ SCH ×2 (08:12→21:09)
[2022-09-02] MEDS: Famotidine 20 MG TABLET PO SCH (21:08)
[2022-09-03 03:55] LABS: Basophils # 0.1 K/mcL (0.0-0.2); Basophils % 1.2 %; Eosinophils # 0.8 K/mcL (0.0-0.6); Eosinophils % 12.1 %; Hematocrit 30.3 % (37.5-50.1); Hemoglobin 10.4 g/dL (12.9-16.9); Immature Granulocytes % 0.4 % (0-4); Lymphocytes # 1.2 K/mcL (0.6-4.6); Lymphocytes % 17.6 %; Mean Corpuscular HGB Conc 34.3 g/dL (31.6-35.5); Mean Corpuscular Hemoglobin 30.1 pg (28.0-33.3); Mean Corpuscular Volume 87.8 fL (83.0-100.0); Mean Platelet Volume 8.3 fL (9.4-12.4); Monocytes # 0.8 K/mcL (0.0-1.3); Monocytes % 11.1 %; Neutrophils # 3.9 K/mcL (1.6-8.9); Platelet Count 246 K/mcL (140-400); Red Blood Count 3.45 M/mcL (4.19-5.50); Red Cell Distribution Width 13.5 % (11.5-14.5); Segmented Neutrophils % 57.6 %; White Blood Count 6.8 K/mcL (4.3-11.1)
[2022-09-03 04:16] LABS: Calcium 8.4 mg/dL (8.6-10.3); Magnesium 1.9 mg/dL (1.6-2.6); Phosphorous 7.7 mg/dL (2.7-4.5); Potassium 3.9 mEq/L (3.5-5.1)
[2022-09-03] MEDS: *HR* Heparin 5,000 UNIT/ML VIAL SQ SCH ×3 (05:14→21:43)
[2022-09-03] MEDS: Insulin LISPRO 300 UNITS/3 ML VIAL SUBQ SCH ×4 (08:43→21:43)
[2022-09-03] MEDS: Loratadine 10 MG TABLET PO SCH (08:45)
[2022-09-03] MEDS: Calcium Acetate 667 MG CAPSULE PO SCH ×3 (08:45→16:41)
[2022-09-03] MEDS: Aspirin 81 MG TAB.CHEW PO SCH (08:45)
[2022-09-03] MEDS: amLODIPine 5 MG TABLET PO SCH (08:45)
[2022-09-03] MEDS: Furosemide 40 MG TABLET PO SCH ×2 (08:45→16:41)
[2022-09-03] MEDS: Metoprolol XL (24 HR) Succ 50 MG TAB.ER.24H PO SCH (08:45)
[2022-09-03] MEDS: Cholecalciferol (D-3) 1,000 UNIT (25MCG) TABLET PO SCH (08:45)
[2022-09-03] MEDS: Vitamin B Complex/Vit C/Vit E 1 EACH TABLET PO SCH (08:46)
[2022-09-03] MEDS: Insulin NPH/REG 70/30 100 UNIT/ML (x5UNIT) SUBQ SCH ×2 (10:19→21:43)
[2022-09-03] MEDS: *HR* HYDROcodone/Acet 5/325 mg TABLET PO PRN (17:25)
[2022-09-03] MEDS: Gabapentin 300 MG CAPSULE PO SCH (21:44)
[2022-09-03] MEDS: Famotidine 20 MG TABLET PO SCH (21:45)
[2022-09-04 06:31] LABS: Calcium 8.9 mg/dL (8.6-10.3); Hematocrit 33.1 % (37.5-50.1); Hemoglobin 11.1 g/dL (12.9-16.9); Mean Corpuscular HGB Conc 33.5 g/dL (31.6-35.5); Mean Corpuscular Hemoglobin 29.8 pg (28.0-33.3); Mean Platelet Volume 8.6 fL (9.4-12.4); Phosphorous 7.6 mg/dL (2.7-4.5); Platelet Count 308 K/mcL (140-400); Potassium 3.8 mEq/L (3.5-5.1); Red Blood Count 3.72 M/mcL (4.19-5.50); Red Cell Distribution Width 13.3 % (11.5-14.5); White Blood Count 7.1 K/mcL (4.3-11.1)
[2022-09-04] MEDS: *HR* HYDROcodone/Acet 5/325 mg TABLET PO PRN ×2 (08:15→18:24)
[2022-09-04] MEDS: Furosemide 40 MG TABLET PO SCH ×2 (08:15→17:11)
[2022-09-04] MEDS: Loratadine 10 MG TABLET PO SCH (08:15)
[2022-09-04] MEDS: amLODIPine 5 MG TABLET PO SCH (08:16)
[2022-09-04] MEDS: Metoprolol XL (24 HR) Succ 50 MG TAB.ER.24H PO SCH (08:16)
[2022-09-04] MEDS: Vitamin B Complex/Vit C/Vit E 1 EACH TABLET PO SCH (08:16)
[2022-09-04] MEDS: Aspirin 81 MG TAB.CHEW PO SCH (08:17)
[2022-09-04] MEDS: Calcium Acetate 667 MG CAPSULE PO SCH ×3 (08:17→17:11)
[2022-09-04] MEDS: Cholecalciferol (D-3) 1,000 UNIT (25MCG) TABLET PO SCH (08:17)
[2022-09-04] MEDS ORDERED: *HR* Heparin 10,000 UNIT/10 ML VIAL IV PRN (09:02)
[2022-09-04] MEDS ORDERED: 0.9 % Sodium Chloride 250 ML IVC PRN (09:02)
[2022-09-04 09:09] LABS: Prothrombin Time 10.7 Seconds (9.4-12.1)
[2022-09-04] MEDS ORDERED: Lidocaine/EPI 1:100k 1% 50 ML VIAL ONE (09:25)
[2022-09-04] MEDS ORDERED: Heparin 1,000 UNITS/500 mL 500 ML ONE (09:25)
[2022-09-04] MEDS ORDERED: *HR* Midazolam HCl 2 MG/2 ML VIAL IVP ONE (10:21)
[2022-09-04] MEDS ORDERED: Clindamycin 600 MG/50 ML 600 MG/50 ML IV.SOLN IVPB ONE (10:21)
[2022-09-04] MEDS ORDERED: *HR* FentaNYL (PF) 100 MCG/2 ML VIAL IVP ONE (10:21)
[2022-09-04] MEDS ORDERED: 0.9 % Sodium Chloride 500 ML ONE (10:27)
[2022-09-04] MEDS ORDERED: *HR* Midazolam HCl 2 MG/2 ML VIAL ONE (10:27)
[2022-09-04] MEDS ORDERED: *HR* FentaNYL (PF) 100 MCG/2 ML VIAL ONE (10:27)
[2022-09-04] MEDS ORDERED: *HR* Heparin 5,000 UNIT/ML VIAL ONE (10:42)
[2022-09-04] MEDS: Insulin LISPRO 300 UNITS/3 ML VIAL SUBQ SCH ×4 (11:08→23:03)
[2022-09-04] MEDS: Insulin NPH/REG 70/30 100 UNIT/ML (x5UNIT) SUBQ SCH ×2 (11:09→23:03)
[2022-09-04] MEDS: Gabapentin 300 MG CAPSULE PO SCH (23:02)
[2022-09-04] MEDS: Famotidine 20 MG TABLET PO SCH (23:02)
[2022-09-05] MEDS: *HR* HYDROcodone/Acet 5/325 mg TABLET PO PRN ×2 (03:58→10:20)
[2022-09-05 04:15] LABS: Hematocrit 30.1 % (37.5-50.1); Hemoglobin 10.4 g/dL (12.9-16.9); Mean Corpuscular HGB Conc 34.6 g/dL (31.6-35.5); Mean Corpuscular Hemoglobin 30.6 pg (28.0-33.3); Mean Corpuscular Volume 88.5 fL (83.0-100.0); Mean Platelet Volume 8.5 fL (9.4-12.4); Platelet Count 236 K/mcL (140-400); Red Cell Distribution Width 13.5 % (11.5-14.5); White Blood Count 5.4 K/mcL (4.3-11.1)
[2022-09-05 04:30] LABS: Calcium 8.2 mg/dL (8.6-10.3); Potassium 4.1 mEq/L (3.5-5.1)
[2022-09-05] MEDS: Calcium Acetate 667 MG CAPSULE PO SCH ×3 (08:21→16:58)
[2022-09-05] MEDS: Loratadine 10 MG TABLET PO SCH (08:22)
[2022-09-05] MEDS: Aspirin 81 MG TAB.CHEW PO SCH (08:22)
[2022-09-05] MEDS: Furosemide 40 MG TABLET PO SCH ×2 (08:22→16:58)
[2022-09-05] MEDS: Vitamin B Complex/Vit C/Vit E 1 EACH TABLET PO SCH (08:22)
[2022-09-05] MEDS: Metoprolol XL (24 HR) Succ 50 MG TAB.ER.24H PO SCH (08:22)
[2022-09-05] MEDS: Cholecalciferol (D-3) 1,000 UNIT (25MCG) TABLET PO SCH (08:22)
[2022-09-05] MEDS: amLODIPine 5 MG TABLET PO SCH (08:23)
[2022-09-05] MEDS: Insulin LISPRO 300 UNITS/3 ML VIAL SUBQ SCH ×3 (08:28→16:58)
[2022-09-05] MEDS: Insulin NPH/REG 70/30 100 UNIT/ML (x5UNIT) SUBQ SCH ×2 (10:22→22:04)
[2022-09-05] MEDS: *HR* Heparin 5,000 UNIT/ML VIAL SQ SCH ×2 (17:02→22:04)
[2022-09-05] MEDS ORDERED: Insulin LISPRO 300 UNITS/3 ML VIAL SUBQ SCH (21:00)
[2022-09-05] MEDS: Famotidine 20 MG TABLET PO SCH (22:03)
[2022-09-05] MEDS: Gabapentin 300 MG CAPSULE PO SCH (22:04)
[2022-09-06 04:40] LABS: Basophils # 0.1 K/mcL (0.0-0.2); Eosinophils # 0.9 K/mcL (0.0-0.6); Eosinophils % 13.3 %; Hematocrit 33.9 % (37.5-50.1); Hemoglobin 11.6 g/dL (12.9-16.9); Immature Granulocytes % 0.4 % (0-4); Lymphocytes # 1.2 K/mcL (0.6-4.6); Lymphocytes % 17.6 %; Mean Corpuscular HGB Conc 34.2 g/dL (31.6-35.5); Mean Corpuscular Hemoglobin 30.1 pg (28.0-33.3); Mean Corpuscular Volume 88.1 fL (83.0-100.0); Mean Platelet Volume 8.2 fL (9.4-12.4); Monocytes # 0.9 K/mcL (0.0-1.3); Monocytes % 13.3 %; Neutrophils # 3.8 K/mcL (1.6-8.9); Platelet Count 292 K/mcL (140-400); Red Blood Count 3.85 M/mcL (4.19-5.50); Red Cell Distribution Width 13.5 % (11.5-14.5); Segmented Neutrophils % 54.4 %
[2022-09-06 04:58] LABS: Calcium 9.2 mg/dL (8.6-10.3); Phosphorous 6.4 mg/dL (2.7-4.5); Potassium 3.6 mEq/L (3.5-5.1)
[2022-09-06 07:13] VITALS: PULSE 78; O2SAT 98
[2022-09-06] MEDS: *HR* Heparin 5,000 UNIT/ML VIAL SQ SCH (07:27)
[2022-09-06] MEDS ORDERED: 0.9 % Sodium Chloride 250 ML IVC PRN (07:29)
[2022-09-06] MEDS ORDERED: 0.9 % Sodium Chloride 2,000 ML PRIME SCH (07:30)
[2022-09-06] MEDS: Loratadine 10 MG TABLET PO SCH (08:35)
[2022-09-06] MEDS: Cholecalciferol (D-3) 1,000 UNIT (25MCG) TABLET PO SCH (08:35)
[2022-09-06] MEDS: Vitamin B Complex/Vit C/Vit E 1 EACH TABLET PO SCH (08:35)
[2022-09-06] MEDS: Calcium Acetate 667 MG CAPSULE PO SCH ×2 (08:36→13:23)
[2022-09-06] MEDS: Insulin NPH/REG 70/30 100 UNIT/ML (x5UNIT) SUBQ SCH (08:36)
[2022-09-06] MEDS: Aspirin 81 MG TAB.CHEW PO SCH (08:36)
[2022-09-06] MEDS: Insulin LISPRO 300 UNITS/3 ML VIAL SUBQ SCH ×2 (08:37→13:22)
[2022-09-06] MEDS: *HR* HYDROcodone/Acet 5/325 mg TABLET PO PRN (08:38)
[2022-09-06] MEDS: Furosemide 40 MG TABLET PO SCH (12:42)
[2022-09-06] MEDS: Metoprolol XL (24 HR) Succ 50 MG TAB.ER.24H PO SCH (13:22)
[2022-09-06] MEDS: amLODIPine 5 MG TABLET PO SCH (13:22)
[2022-09-06 13:55] VITALS: BP 147/79; TEMP 98
== END 2022-09-06 13:23 | disposition home or self-care (01) | DRG 674 ==
LOC: EMEROOARM 11:52 → 2ANU 11:52 → SUATTDRO 16:00 → 2ANU 16:48 → SUATTDRO 08-30 14:27
PROVIDERS: ADMIT Hospitalist; ATTEND Internal Medicine
PROC: IRPERMA (2022-09-04 12:00)